=== PATIENT | male | born 1945 | race Caucasian/White ===

== ENCOUNTER 2024-06-20 13:01 | Inpatient (IN) | payer MEDICARE, SELFPAY ==
[2024-06-19] VITALS (28 sets, daily range): BP systolic 84–128; BP diastolic 57–89; PULSE 54–106; RESP 12–18; TEMP 35.6–36.9; O2SAT 93–100; BMI 29.2
--- NOTE | 2024-06-19 09:31 | W.PM.H&PU ---
History & Physical Update History & Physical Update H&P Reviewed and patient assessed: No changes noted
[2024-06-19] MEDS: LACTATED RINGERS 1000 ML 1,000 ML 100 ML IV ×2 (09:40→12:33)
[2024-06-19] MEDS: SODIUM CHLORIDE 0.9 % (FLUSH) 10 ML SYRINGE IVF (09:50)
[2024-06-19] MEDS: ACETAMINOPHEN 500 MG TABLET 1000 MG PO ×3 (09:55→20:35)
[2024-06-19] MEDS: OXYCODONE (CR) 10 MG TAB.ER.12H PO (09:55)
--- NOTE | 2024-06-19 10:29 | SUR.PREOP ---
TIME?OUT:?1031 PT/RN/MDA?VERIFICATION?OF?SURGICAL?SITE,?PROCEDURE,?AND?CONSENT OBTAINED?PRIOR?TO?INVASIVE?PROCEDURE.
[2024-06-19] MEDS: MIDAZOLAM HCL 1 MG/ML inj IVP (10:33)
[2024-06-19] MEDS: fentaNYL 100 MCG/2 ML inj IVP (10:33)
[2024-06-19] MEDS: TRANEXAMIC ACID 100 MG/ML INJ 1000 MG IV (10:57)
[2024-06-19] MEDS: CEFAZOLIN 2 GM in 0.9 % SODIUM CHLORIDE Mini-bag 100 ML IVPB ×3 (10:57→23:02)
--- NOTE | 2024-06-19 11:07 | CRLHL7_ITS ---
For Patients: As a result of the Cures Act, medical imaging exams and procedure reports are released immediately into your electronic medical record. You may view this report before your referring provider. If you have questions, please contact your health care provider. Indication: Postop Technique: Two views right knee Findings/Impression: Hardware from a right total knee arthroplasty is in satisfactory position. Bone alignment is normal. No sign of acute fracture. Postop changes are within normal limits. Dictated by Armond Stein MD @ 06/19/2024 1:10:43 PM (Electronically Signed)
--- NOTE | 2024-06-19 11:24 | P.NB_ITS ---
Nerve Block Nerve Block Time Seen by Provider: 10:35 Date Seen: 06/19/24 Type of block requested by surgeon for post-operative analgesia: adductor canal Side: right Time out performed: Yes Verification of patient name: Yes Verification of date of : Yes Site marking: site marked Name of person performing procedure: Rosas Continuous monitoring Was continuous monitoring of O2 sat, B/P, equipment monitor phototypesetting, recorded every 15 minutes?: Yes Procedure Checklist: sterile prep, needles and gloves Ultrasound guided. Images saved: Yes Medications given in 5ml increments after negative aspiration: Marcaine %: 0.25 mL: 15 Needle gauge: 20 Precedex (mcg): 25 Patient tolerated procedure well: Yes Block Charges Block Charge (with Pro Fee): Femoral Nerve Use of Ultrasound Machine for Block: Yes- US Guidance/pain block
--- NOTE | 2024-06-19 11:24 | P.NB_ITS ---
Nerve Block Nerve Block Time Seen by Provider: 10:35 Date Seen: 06/19/24 Type of block requested by surgeon for post-operative analgesia: geniculars Side: right Time out performed: Yes Verification of patient name: Yes Verification of date of : Yes Site marking: site marked Name of person performing procedure: Rosas Continuous monitoring Was continuous monitoring of O2 sat, B/P, cardiac tech, recorded every 15 minutes?: Yes Procedure Checklist: sterile prep, needles and gloves Ultrasound guided. Images saved: Yes Medications given in 5ml increments after negative aspiration: Marcaine %: 0.25 mL: 9 Needle gauge: 25 Patient tolerated procedure well: Yes Block Charges Block Charge (with Pro Fee): Genicular Nerve Block
--- NOTE | 2024-06-19 11:25 | P.ANES_ITS ---
Anesthesia Charges Start Date/Time Anesthesia Start Date: 06/19/24 Anesthesia Start Time: 10:38 Stop Date/Time Anesthesia Stop Date: 06/19/24 Anesthesia Stop Time: 12:44 Summary Extremes of Age - Over 70 or under 1: MDA Coding CPT Codes CPT Codes: ANESTH KNEE ARTHROPLASTY - 97497 ([id number]) P3 - PATIENT W/SEVERE SYS DISEASE, QK - ROLL UP GUIDER OPERATOR 2-4 CNCRNT ANES PROC, QX - SIZING MACHINE AND DRIER OPERATOR SVC W/ MD MED DIRECTION Additional Codes: Summary - Extremes of Age - Over 70 or under 1: MDA ([id number])
--- NOTE | 2024-06-19 11:25 | W.ANESCHARGE ---
Anesthesia Charges Start Date/Time Anesthesia Start Date: 06/19/24 Anesthesia Start Time: 10:38 Stop Date/Time Anesthesia Stop Date: 06/19/24 Anesthesia Stop Time: 12:44 Summary Extremes of Age - Over 70 or under 1: MDA Coding CPT Codes CPT Codes: ANESTH KNEE ARTHROPLASTY - 03512 ([id number]) P3 - PATIENT W/SEVERE SYS DISEASE, QK - RESIDENCY PROGRAM COORDINATOR 2-4 CNCRNT ANES PROC, QX - ARC WELDER APPRENTICE SVC W/ MD MED DIRECTION Additional Codes: Summary - Extremes of Age - Over 70 or under 1: MDA ([id number])
--- NOTE | 2024-06-19 12:18 | P.ORPRC_ITS ---
Procedure Note Date of procedure: 06/19/24 Procedure: PREOPERATIVE DIAGNOSIS: 1. Right knee osteoarthritis, primary, severe POSTOPERATIVE DIAGNOSIS: 1. Right knee osteoarthritis, primary, severe PROCEDURE: 1. Right total knee arthroplasty - subvastus SURGEON: Fernando Centeno MD. VOCATIONAL NURSE: DEBBIE Coburn - Of note, a skilled administrative assistant data entry was critical for this case to aid in patient positioning, tissue retraction, limb manipulation/positioning, and closure. ANESTHESIA: Spinal anesthetic IMPLANTS: DePuy J&J all cemented TKA - Attune PS femur size 7 Size 8 tibia 5 poly spacer 38mm patella TOURNIQUET: 90 min at 300 torr EBL: 50 ml COMPLICATIONS: None evident INDICATIONS: The patient is a pleasant 79-year-old male who has experienced severe right knee pain and difficulty bearing weight. Workup included x-rays which revealed severe osteoarthrosis in the knee. Given the deformity, the dysfunction, and the pain, as well as the failure of nonoperative management, recommendation was made for surgery. FINDINGS: Full-thickness chondral loss diffusely throughout the lateral compartment and to a lesser degree patellofemoral and medial compartments. Degenerative meniscus pathology lateral greater than medial. Small effusion upon entering the joint. DESCRIPTION OF PROCEDURE: Following a thorough discussion of risks, benefits, and alternatives consent was obtained and the right knee was marked. The patient was brought to the operating room and placed supine on the operating table. Induction of anesthesia was undertaken. 2 g IV Ancef and 1 g tranexamic acid was administered within 1 hr of incision preoperatively. Proper time-out was performed identifying proper patient, site, procedure. The operative extremity was prepped and draped in the appropriate sterile fashion using ChloraPrep after the patient was positioned supine with all bony prominences well padded. A longitudinal, anterior, midline skin incision was made starting approximately 3cm proximal to the superior pole of the patella and advanced distal to the tibial tubercle. A subvastus approach was utilized. A medial subperiosteal sleeve was created with knife, dale elevator and curved osteotome. The retropatellar fatpad was resected and the synovium in the suprapatellar pouch excised to visualize the anterior femoral cortex. Femoral preparation was performed via an intramedullary guide. Step drill allowed access into the femoral canal. The distal cutting guide was placed with 5? of valgus and 11 mm cut on the distal femur. Femur was sized using a anterior referencing guide in 3? of external rotation. This found have a best fit with the sizing noted above. The 4 in 1 cutting block was then placed, and the distal femur shaped accordingly. The box cut was then created and the trial implant inserted to confirm appropriate fit. We turned our attention to the proximal tibia. Extramedullary guide was utilized for cutting with the goal of being 90 degree cut from the mechanical axis of the tibia in the varus/valgus plane utilizing tibial crest as the primary alignment. Initially a 4 mm resection was performed from the medial tibial plateau. An additional 2mm did require resection to achieve appropriate balance. Ultimately, balancing was achieved in both flexion and extension in both varus and valgus. The knee was able to achieve full extension as well comfortably. The patella was initially measured and found have a thickness of 27 mm. It was resected back to approximately 16.5 mm. It was sized to be a best fit with as noted above. This was drilled, trial placed. All trials were placed and found to have an excellent stability and balance. At this stage, trial implants were removed, the knee was thoroughly irrigated with normal saline, and the cement was mixed. After irrigation, the knee was thoroughly dried, and cement placed, with the real tibial and femoral implants placed along with the patella. Trial poly spacer was placed and confirmed to have excellent range of motion and full extension, and the real poly spacer opened and inserted. All extra cement was removed, and a 3 min Betadine soak performed. Finally, a final irrigation round with normal saline was performed. Closure performed with 0 Vicryl and #0 Stratafix for the quad tendon/retinaculum. 2-0 Vicryl for the subcutaneous and 4-0 Stratafix for subcuticular closure. Dressings were applied and the patient was awoken from anesthesia after the tourniquet deflated and transferred the PACU in stable condition. A skilled administrative assistant data entry was critical for this case to aid in patient positioning, tissue retraction, bone exposure, limb manipulation/positioning, patient safety, and closure. PLAN: 1. Weight bear as tolerated operative extremity. 2. 23 hr perioperative antibiotics. 3. Ice. 4. PT/OT consults for ambulation assistance/mobility education. 5. Social work consult for discharge planning. 6. [facility] and he will return to his [facility] use postoperative
--- NOTE | 2024-06-19 12:44 | P.ANES_ITS ---
Anesthesia Charges Start Date/Time Anesthesia Start Date: 06/19/24 Anesthesia Start Time: 10:38 Stop Date/Time Anesthesia Stop Date: 06/19/24 Anesthesia Stop Time: 12:44 Summary Extremes of Age - Over 70 or under 1: DIETETIC TECH Coding CPT Codes CPT Codes: ANESTH KNEE ARTHROPLASTY - 50995 ([id number]) P2 - PATIENT W/MILD SYST DISEASE, QK - COPPERSMITH HELPER 2-4 CNCRNT ANES PROC, QX - DIETETIC TECH SVC W/ MD MED DIRECTION Additional Codes: Summary - Extremes of Age - Over 70 or under 1: DIETETIC TECH ([id number])
--- NOTE | 2024-06-19 12:44 | W.ANESCHARGE ---
Anesthesia Charges Start Date/Time Anesthesia Start Date: 06/19/24 Anesthesia Start Time: 10:38 Stop Date/Time Anesthesia Stop Date: 06/19/24 Anesthesia Stop Time: 12:44 Summary Extremes of Age - Over 70 or under 1: LICENSED LAND SURVEYOR Coding CPT Codes CPT Codes: ANESTH KNEE ARTHROPLASTY - 92511 ([id number]) P2 - PATIENT W/MILD SYST DISEASE, QK - MATRIX INSPECTOR 2-4 CNCRNT ANES PROC, QX - LICENSED LAND SURVEYOR SVC W/ MD MED DIRECTION Additional Codes: Summary - Extremes of Age - Over 70 or under 1: LICENSED LAND SURVEYOR ([id number])
[2024-06-19] MEDS: fentaNYL 100 MCG/2 ML inj 50 MCG IVP ×3 (12:56→13:25)
[2024-06-19] MEDS: HYDROmorphone 0.5 mg/0.5 ml inj IVP ×5 (13:10→23:54)
[2024-06-19] MEDS: OXYCODONE 5 MG TABLET PO ×3 (14:12→20:35)
[2024-06-19] MEDS: hydrOXYzine pamoate 25 MG CAPSULE PO (14:13)
[2024-06-19] MEDS: LACTATED RINGERS 1000 ML 1,000 ML 75 ML IV (14:22)
--- NOTE | 2024-06-19 14:48 | REH.PT ---
PT receive orders to eval and treat. PT attempted to see pt in PM for eval, however pt is too groggy from pain medications to participate in PT. Will reattempt as plan tomorrow morning.
--- NOTE | 2024-06-19 16:51 | P.IMCN_ITS ---
Date of Consult Consult date: 06/19/24 Primary Care Provider: Zaid Gill MD Consult Narrative Narrative: Zaid Maddox is a 79 year old male w/ PMHx of atrial fibrillation, stricture and stenosis of the esophagus, overactive bladder and Right knee osteoarthritis who presents to our hospital for an elective procedure. Currently, patient is s/p Right total knee arthroplasty, performed today 19 of June. Patient is on apixaban 5 mg b.i.d. and on verapamil SR 180 mg once daily for his AFib. Pt is c/o severe pain post op, though he took good doses of opioid meds. Anesthesiologist was contacted to repeat knee block. Review of Systems Status of ROS: Reports: 6 or more systems reviewed and unremarkable except as noted in History and below [facility] Medical History (Updated 06/19/24 @ 18:45 by Rizwana Anderson MD) Left hydrocele ?N43.3 - Hydrocele, unspecified (ICD-10) Risk for falls ?Z91.81 - History of falling (ICD-10) BPH without urinary obstruction ?N40.0 - Benign prostatic hyperplasia without lower urinary tract symptoms (ICD-10) Overactive bladder ?N32.81 - Overactive bladder (ICD-10) Insomnia ?G47.00 - Insomnia, unspecified (ICD-10) Arthritis of carpometacarpal (CMC) joint of left thumb ?M18.12 - Unilateral primary osteoarthritis of first carpometacarpal joint, left hand (ICD-10) Stricture and stenosis of esophagus ?K22.2 - Esophageal obstruction (ICD-10) Mixed conductive and sensorineural hearing loss of right ear with restricted hearing of left ear ?H90.A31 - Mixed conductive and sensorineural hearing loss, unilateral, right ear with restricted hearing on the contralateral side (ICD-10) Cholesteatoma ?H71.90 - Unspecified cholesteatoma, unspecified ear (ICD-10) Onychomycosis ?B35.1 - Tinea unguium (ICD-10) Afib ?I48.91 - Unspecified atrial fibrillation (ICD-10) Surgical History (Updated 06/19/24 @ 16:56 by Rizwana Anderson MD) History of arthroplasty of right knee (06/19/24) ?Z96.651 - Presence of right artificial knee joint (ICD-10) History of bilateral cataract extraction (07/2020) ?Z98.41 - Cataract extraction status, right eye (ICD-10) ?Z98.42 - Cataract extraction status, left eye (ICD-10) History of esophagogastroduodenoscopy (EGD) (10/2019) ?Z98.890 - Other specified postprocedural states (ICD-10) H/O umbilical hernia repair (08/11/01) ?Z98.890 - Other specified postprocedural states (ICD-10) ?Z87.19 - Personal history of other diseases of the digestive system (ICD-10) Cholesteatoma of right ear (1997) ?H71.91 - Unspecified cholesteatoma, right ear (ICD-10) History of tonsillectomy (1951) ?Z90.89 - Acquired absence of other organs (ICD-10) History of transurethral resection of prostate (11/2013) ?Z98.890 - Other specified postprocedural states (ICD-10) ?Z90.79 - Acquired absence of other genital organ(s) (ICD-10) Social History (Updated 04/21/24 @ 10:56 by Tessy Celaya ~ [facility], [facility]) What is your current living situation?: I presently have a place to live In the past 12 months, utilities in danger of being shut off: no In past 12 months, lack of transportation kept you from medical appts, meetings, work, or getting things needed for daily living: no In the past 12 mos, have been you worried that your food would run out before you had money to buy more?: never true In the past 12 mos, the food you bought just didn't last and you didn't have money to buy more?: never true Smoking Status: Never smoker Do you use any of these nicotine containing products: None Second hand tobacco smoke exposure: No How often do you have a drink containing alcohol: never AUDIT-C Alcohol total score: 0 Non-prescribed substance use: denies use Caffeine: Yes How often does anyone, including family, friends and others, physically hurt you : never How often does anyone, including family, friends and others, insult or talk down to you: never How often does anyone, including family, friends and others, threaten you with harm: never How often does anyone, including family, friends and others, scream or curse at you: never service: No Meds Home Medications and Allergies Home Medications ?Medication ?Instructions ?Recorded ?Confirmed ?Type apixaban 5 mg tablet (Eliquis) 5 mg PO BID 12/11/22 06/19/24 History verapamil 180 mg tablet,extended 180 mg PO DAILY 12/11/22 06/19/24 History release cholecalciferol (vitamin D3) 25 1,000 unit PO BID 06/15/24 06/15/24 History mcg (1,000 unit) capsule Allergies Allergy/AdvReac Type Severity Reaction Status Date / Time No Known Drug Allergies Allergy Verified 06/19/24 09:23 Exam Narrative: Exam Narrative: Physical exam GENERAL: Anxious HEAD AND NECK: Atraumatic, normocephalic CARDIOVASCULAR: Normal S1, S2. No murmurs. RESPIRATORY: Clear to auscultation B/L. Good air entry B/L. No wheezes or rhonchi. NEUROLOGY: Alert, awake, oriented X 3. Normal speech. Const: Vital Signs, click to edit/add: Vital Signs - 24 hr 06/19/24 09:10 06/19/24 10:35 06/19/24 12:40 Temperature 98.4 F Pulse Rate 97 75 64 Respiratory Rate 16 14 13 Blood Pressure 106/65 110/64 94/57 L Pulse Oximetry 96 99 97 Oxygen Delivery Me thod Room Air Nasal Cannula Room Air Oxygen Flow Rate 2 06/19/24 12:45 06/19/24 12:50 06/19/24 12:55 Temperature Pulse Rate 65 56 L 60 Respiratory Rate 12 14 16 Blood Pressure 84/58 L 108/89 89/64 L Pulse Oximetry 98 94 96 Oxygen Delivery Me thod Oxygen Flow Rate 06/19/24 13:00 06/19/24 13:05 06/19/24 13:10 Temperature Pulse Rate 57 L 60 59 L Respiratory Rate 14 16 14 Blood Pressure 97/60 98/60 99/61 Pulse Oximetry 98 95 94 Oxygen Delivery Me thod Oxygen Flow Rate 06/19/24 13:15 06/19/24 13:20 06/19/24 13:25 Temperature Pulse Rate 55 L 58 L 57 L Respiratory Rate 13 14 12 Blood Pressure 98/61 95/67 107/63 Pulse Oximetry 96 95 94 Oxygen Delivery Me thod Oxygen Flow Rate 06/19/24 13:30 06/19/24 13:35 06/19/24 13:40 Temperature 97.0 F L Pulse Rate 59 L 54 L 55 L Respiratory Rate 12 14 13 Blood Pressure 107/72 100/69 104/60 Pulse Oximetry 93 95 95 Oxygen Delivery Me thod Oxygen Flow Rate 06/19/24 14:12 06/19/24 14:26 06/19/24 14:26 Temperature 96.9 F L 96.9 F L 96.2 F L Pulse Rate 61 59 L Respiratory Rate 14 12 Blood Pressure 100/68 105/67 Pulse Oximetry 99 96 Oxygen Delivery Me thod Room Air Room Air Oxygen Flow Rate 2 06/19/24 14:34 06/19/24 14:56 06/19/24 15:00 Temperature 96.0 F L 96.2 F L Pulse Rate 59 L 65 Respiratory Rate 12 12 Blood Pressure 115/72 99/72 Pulse Oximetry 97 97 97 Oxygen Delivery Me thod Room Air Room Air Oxygen Flow Rate 2 06/19/24 15:00 06/19/24 15:11 06/19/24 15:41 Temperature 96.0 F L 96.0 F L Pulse Rate 56 L 77 Respiratory Rate 12 12 12 Blood Pressure 108/70 93/61 Pulse Oximetry 97 97 100 Oxygen Delivery Me thod Room Air Room Air Room Air Oxygen Flow Rate 2 Assessment and Plan Assessment and plan (1) Status post right knee replacement: Problem comment: -s/p Right total knee arthroplasty, performed today 19 of June. -Start early ambulation with physical therapy. -DVT prophylaxis with at [facility] and he will return to his [facility] use postoperative. -Monitor for urine output postoperatively, bladder scan if needed. -Encourage incentive spirometry. -PT/OT Status: Acute (2) Post-operative pain: Problem comment: Had severe pain post op. Anesthesiologist to repeat knee block. Status: Acute (3) Afib: Problem comment: Patient is on apixaban 5 mg b.i.d. and on verapamil SR 180 mg once daily for his AFib. Status: Acute (4) Osteoarthritis of right knee: Problem comment: Severe Status: Acute (5) Overactive bladder: Status: Acute (6) Stricture and stenosis of esophagus: Status: Acute Total Time Spent Total Time Spent: Time spent: Today I spent 75 minutes seeing the patient, discussing the patient with ER staff, reviewing Expanse and EPIC notes/diagnostics, discussing the care plan with our care time that includes social work, PT/OT, pharmacy, RT, detention and documenting my impressions and plan in the medical record.
[2024-06-19] MEDS: ONDANSETRON 2 MG/ML inj 4 MG IVP (17:52)
--- NOTE | 2024-06-19 18:37 | PC.NURSE ---
Patient to the floor at 1345 S/P RTKA. Patients pain not managed with scheduled and prn medications, PERSONAL SERVICE WORKERS currently at bedside providing a block for increased pain control. VSS, CMS intact, patient tolerating regular diet and ambulates with SBA.
--- NOTE | 2024-06-19 20:03 | CRLHL7_ITS ---
For Patients: As a result of the Century Cures Act, medical imaging exams and procedure reports are released immediately into your electronic medical record. You may view this report before your referring provider. If you have questions, please contact your health care provider. INDICATION: Pain and swelling. COMPARISON: None. TECHNIQUE: A compression venous ultrasound exam was performed of the right lower extremity using pedroza-scale imaging, color Doppler, and spectral Doppler analysis. FINDINGS: Sonographic imaging of the right lower extremity demonstrates normal compressibility and color Doppler venous blood flow within the common femoral, femoral, deep femoral, and proximal greater saphenous veins. At a lower level the popliteal, peroneal, and posterior tibial veins also show normal compressibility and color Doppler venous blood flow. Limited imaging of the contralateral groin demonstrates a normal spectral waveform and color Doppler venous blood flow within the left common femoral vein. IMPRESSION: Negative for acute DVT in the right lower extremity. Dictated by Chaya Real MD @ 06/19/2024 10:28:50 PM (Electronically Signed)
[2024-06-19] MEDS: SENNOSIDES 1 TAB TABLET 2 TAB PO (20:35)
--- NOTE | 2024-06-19 22:13 | W.PM.NB ---
Nerve Block Nerve Block Time Seen by Provider: 19:30 Date Seen: 06/19/24 Type of block requested by surgeon for post-operative analgesia: adductor canal Side: right Time out performed: Yes Verification of patient name: Yes Verification of date of : Yes Site marking: site marked Name of person performing procedure: Gianni Pillai Continuous monitoring Was continuous monitoring of O2 sat, B/P, clinical research monitor, recorded every 15 minutes?: Yes Procedure Checklist: sterile prep, needles and gloves Ultrasound guided. Images saved: Yes Medications given in 5ml increments after negative aspiration: Marcaine %: 0.25 mL: 10 Needle gauge: 21 and Lidocaine %: 2.0 mL: 10 Needle gauge: 21 Patient tolerated procedure well: Yes Additional comments: Re block post op. Injected in 5ml increments after negative aspiration Block Charges Block Charge (with Pro Fee): Femoral Nerve Use of Ultrasound Machine for Block: Yes- US Guidance/pain block
--- NOTE | 2024-06-19 22:15 | P.NB_ITS ---
Nerve Block Nerve Block Time Seen by Provider: 19:30 Date Seen: 06/19/24 Type of block requested by surgeon for post-operative analgesia: geniculars Side: right Time out performed: Yes Verification of patient name: Yes Verification of date of : Yes Site marking: site marked Name of person performing procedure: Gianni Pillai Continuous monitoring Was continuous monitoring of O2 sat, B/P, teletypesetter monitor, recorded every 15 minutes?: Yes Procedure Checklist: sterile prep, needles and gloves Ultrasound guided. Images saved: No Medications given in 5ml increments after negative aspiration: Marcaine %: 0.25 mL: 7 Needle gauge: 21 and Lidocaine %: 2.0 mL: 5 Needle gauge: 25 Patient tolerated procedure well: Yes Additional comments: Re-block post op. Injected in 4ml increments after negative aspiration Block Charges Block Charge (with Pro Fee): Genicular Nerve Block Use of Ultrasound Machine for Block: No
--- NOTE | 2024-06-19 22:19 | W.PM.NB ---
Nerve Block Nerve Block Time Seen by Provider: 20:00 Date Seen: 06/19/24 Type of block requested by surgeon for post-operative analgesia: popliteal Side: right Time out performed: Yes Verification of patient name: Yes Verification of date of : Yes Site marking: site marked Name of person performing procedure: Gianni Pillai Continuous monitoring Was continuous monitoring of O2 sat, B/P, sewage treatment plant operator, recorded every 15 minutes?: Yes Procedure Checklist: sterile prep, needles and gloves Ultrasound guided. Images saved: Yes Medications given in 5ml increments after negative aspiration: Marcaine %: 0.25 mL: 10 Needle gauge: 21 and Lidocaine %: 2.0 mL: 10 Needle gauge: 21 Patient tolerated procedure well: Yes Additional comments: Ipack block Block Charges Block Charge (with Pro Fee): Sciatic Nerve Use of Ultrasound Machine for Block: Yes- US Guidance/pain block
--- NOTE | 2024-06-19 22:44 | PC.NURSE ---
TOOL PLANER SET UP OPERATOR updated Ortho PA after block completed. Ortho PA ordered US to rule out DVT and to assess dense area noted on his ultrasound behind knee. Area was noted to be muscle knot per TOOL PLANER SET UP OPERATOR.
[2024-06-19] MEDS: LORazepam 0.5 MG TABLET PO (23:02)
[2024-06-20] VITALS (8 sets, daily range): BP systolic 93–125; BP diastolic 58–97; PULSE 92–120; RESP 16–20; TEMP 36.3–36.8; O2SAT 94–99
[2024-06-20] MEDS: OXYCODONE 5 MG TABLET PO ×2 (00:07→02:53)
[2024-06-20] MEDS: ONDANSETRON 2 MG/ML inj 4 MG IVP (00:08)
[2024-06-20] MEDS: ACETAMINOPHEN 500 MG TABLET 1000 MG PO ×3 (02:53→21:03)
[2024-06-20 06:36] LABS: Basophils Percent Auto 0.1 % (0.0-3.0); Hematocrit 41.9 % (37.0-53.0); Hemoglobin* 13.8 gm/dL (13.5-17.5); Immature Granulocytes Pct Auto 0.1 %; Mean Corpuscular HGB Conc 33 gm/dL (32-36); Mean Corpuscular Hemoglobin 29 pg (26-34); Mean Corpuscular Volume 89 fL (80-100); Monocytes Percent Auto 9.5 % (0.0-11.0); Neutrophils Percent Auto 83.3 % (42.0-72.0); Platelet Count* 183 K/uL (140-440); RDW Coefficient of Variation % 14.6 % (11.5-15.5); Red Blood Count 4.69 m/uL (4.30-5.90); White Blood Count* 11.26 K/uL (4.50-11.00)
[2024-06-20 06:37] LABS: Slide Review Reflex No
[2024-06-20 06:49] LABS: Sodium* 133 mmol/L (135-149)
[2024-06-20 06:50] LABS: Potassium* 4.2 mmol/L (3.6-5.1)
[2024-06-20 06:52] LABS: Blood Urea Nitrogen* 17 mg/dL (7-30); Creatinine* 0.8 mg/dL (0.5-1.5); Est. Creatinine Clearance* 60.88; Estimated Glomerular Filt Rate 91 ml/min
--- NOTE | 2024-06-20 07:11 | PC.NURSE ---
[id number]: Pt alert, oriented and vitally stable. Pain rated 10/10 around 2300, prn oxy and dilaudid given, pt stated improvement to 6/10. Prn oxy given again, pt stated further improvement. Pt used bedside urinal, strenuous when urinating. After urinating, pt stated nausea, prn zofran given. Aqua K to bottom of right knee, ice pack to op site. Dressing C/D/I. Iv infiltrated, removed tip intact. Refused replacement. Pt in bed, appears to be resting call light within reach.?
[2024-06-20] MEDS: SENNOSIDES 1 TAB TABLET 2 TAB PO ×2 (08:33→21:02)
[2024-06-20] MEDS: APIXABAN 5 MG TABLET PO ×2 (08:34→21:02)
[2024-06-20] MEDS: HYDROmorphone 2 MG TABLET PO ×4 (09:11→22:19)
--- NOTE | 2024-06-20 12:30 | PC.SOCIAL ---
Discharge planning: field irrigation worker met with pt, pt's and pt's son, Clarence. Pt stated that he has has uncontrolled pain since he woke up from surgery and has concerns about discharging home with his pain uncontrolled. field irrigation worker relayed this message to the provider on duty. PT will be meeting with the pt again at 12:30pm to reassess his movement. Social work to follow-up as needed.
--- NOTE | 2024-06-20 17:54 | P.ORPN_ITS ---
Subjective Subjective Date Seen: 06/20/24 Principal diagnosis: Status postop day 1 right total knee arthroplasty Interval history: Patient reports not dealing well with the pain. Pain is always a 10/10, especially when weight-bearing. Points to pain along the medial aspect of his knee, no posterior pain. Acute events overnight include difficult pain control, requiring repeat popliteal block. There is also possible concern for a DVT, which was ruled out with ultrasound. Pain manage okay with scheduled and PRN medications, ice. DVT prophylaxis: On apixaban 5 mg twice daily chronically, SCDs, walking. Denies fevers, chills, aches, N/V, CP, SOB/POTTER, or lightheadedness. Reported vomiting yesterday, which has slightly improved. Still some nausea. Ortho Exam Narrative Exam Narrative: -Patient appears comfortable in a recliner; no apparent acute distress. Seems a little groggy from pain medication. -Alert and oriented times 3 -Operative knee mild-moderately swollen; soft tissues supple; no ecchymosis; no erythematous streaking Warmth appropriate. Pain along the medial aspect, vastus medialis region and medial retinaculum. Posterior knee discomfort. -Surgical dressing clean, dry, intact; no drainage -Bilateral calfs soft; no significant swelling, edema, tenderness, erythema, discoloration, warmth, or palpable cords -2+ DP/PT pulses, intact dermatomes and myotomes distally (5/5 strength) Const Vital Signs, click to edit/add: Vital Signs - 24 hr 06/19/24 17:58 06/19/24 20:05 06/19/24 22:33 Temperature 96.5 F L 97.3 F L 97.7 F Pulse Rate 65 Pulse Rate [Right Pulse Oximeter] 91 106 H Respiratory Rate 14 16 14 Blood Pressure 113/73 Blood Pressure [Right Arm] 128/78 116/68 Pulse Oximetry 99 97 95 Oxygen Delivery Method Room Air Room Air Room Air Oxygen Flow Rate 06/19/24 23:00 06/19/24 23:00 06/19/24 23:00 Temperature 97.8 F Pulse Rate Pulse Rate [Right Pulse Oximeter] 93 Respiratory Rate 16 18 Blood Pressure Blood Pressure [Right Arm] 101/77 Pulse Oximetry 100 100 100 Oxygen Delivery Method Room Air Nasal Cannula Oxygen Flow Rate 1 06/19/24 23:00 06/20/24 03:00 06/20/24 07:00 Temperature 98.2 F Pulse Rate Pulse Rate [Right Pulse Oximeter] 93 99 Respiratory Rate 18 16 Blood Pressure Blood Pressure [Right Arm] 119/97 H Pulse Oximetry 98 98 Oxygen Delivery Method Room Air Oxygen Flow Rate 06/20/24 07:00 06/20/24 08:00 06/20/24 11:00 Temperature 97.7 F Pulse Rate Pulse Rate [Right Pulse Oximeter] 103 H 120 H Respiratory Rate 16 16 Blood Pressure Blood Pressure [Right Arm] 125/73 120/63 Pulse Oximetry 98 98 98 Oxygen Delivery Method Room Air Room Air Room Air Oxygen Flow Rate 06/20/24 15:00 06/20/24 15:00 06/20/24 15:00 Temperature Pulse Rate Pulse Rate [Right Pulse Oximeter] 119 H Respiratory Rate 16 Blood Pressure Blood Pressure [Right Arm] Pulse Oximetry 96 99 Oxygen Delivery Method Room Air Oxygen Flow Rate 06/20/24 15:00 Temperature Pulse Rate Pulse Rate [Right Pulse Oximeter] 119 H Respiratory Rate 16 Blood Pressure Blood Pressure [Right Arm] 107/58 L Pulse Oximetry 99 Oxygen Delivery Method Room Air Oxygen Flow Rate Assessment and Plan Assessment and plan (1) Status post right knee replacement: Problem details: -s/p Right total knee arthroplasty, performed today 19 of June. -Start early ambulation with physical therapy. -DVT prophylaxis with at [facility] and he will return to his Eliquis use postoperative. -Monitor for urine output postoperatively, bladder scan if needed. -Encourage incentive spirometry. -PT/OT Status: Acute (2) Post-operative pain: Problem details: Had severe pain post op. Anesthesiologist to repeat knee block. Status: Acute (3) Afib: Problem details: Patient is on apixaban 5 mg b.i.d. and on verapamil SR 180 mg once daily for his AFib. Status: Acute (4) Osteoarthritis of right knee: Problem details: Severe Status: Acute (5) Overactive bladder: Status: Acute (6) Stricture and stenosis of esophagus: Status: Acute Plan - Complete 23 hour perioperative antibiotics. - PT/OT consult for education and assistance. - Social work consult for discharge planning - patient may require SNF at discharge. He is not doing well now from pain management standpoint, and is not progressing very well because of this pain. - Prescribed analgesics as needed - will switch to oral Dilaudid to see if this helps compared to the oxycodone. Continue acetaminophen. No Vistaril added - DVT prophylaxis: 5 mg apixaban twice daily, walking, and SCDs - Anticipation is for discharge to home or SNF once patient is doing well with therapies, and has better pain control.
--- NOTE | 2024-06-20 18:34 | PC.NURSE ---
Pt pleasant to care for. VSS. Afebrile. Pain is hard to control today, requiring PRN pain medications and ice frequently. Pt did move well with therapy and continues to ambulate in room to the restroom. This evening the pt states his pain is more tolerable at a 5/10. Appetite has improved this evening. Pt resting well at this time.
--- NOTE | 2024-06-20 19:57 | CRLHL7_ITS ---
For Patients: As a result of the Cures Act, medical imaging exams and procedure reports are released immediately into your electronic medical record. You may view this report before your referring provider. If you have questions, please contact your health care provider. Indication: Possible fall, right knee pain.. Technique: Right knee, 2 views. Comparison: June 19, 2024. Findings: Evolving postsurgical changes from right knee arthroplasty. Orthopedic hardware appears to be in appropriate alignment without significant interval change. No hardware fracture identified. No acute osseous fracture identified. Persistent gas in the soft tissues and joint space which has decreased compared to the prior exam. Soft tissue swelling, mildly increased compared to prior. Dictated by Bria Lieberman MD @ 06/20/2024 9:04:36 PM (Electronically Signed)
[2024-06-20] MEDS: SODIUM CHLORIDE 0.9 % (FLUSH) 10 ML SYRINGE IVF (21:03)
[2024-06-20] MEDS: 0.9 % SODIUM CHLORIDE 500 ML 500 ML IV (21:03)
[2024-06-20] MEDS: METOPROLOL TARTRATE 25 MG TABLET 12.5 MG PO (22:17)
[2024-06-21] VITALS (9 sets, daily range): BP systolic 100–129; BP diastolic 65–89; PULSE 86–104; RESP 14–18; TEMP 36.3–36.8; O2SAT 94–97
[2024-06-21] MEDS: HYDROmorphone 2 MG TABLET PO ×4 (02:34→22:23)
[2024-06-21] MEDS: ACETAMINOPHEN 500 MG TABLET 1000 MG PO ×4 (02:34→21:07)
--- NOTE | 2024-06-21 03:15 | PC.NURSE ---
RN was by break room door and heard patient from 257 yelling out. RN immediately headed to 257 to assist patient. When RN entered room, patient was sitting in the recliner rubbing his R. knee saying he fell. Patient's was also at bedside. Patient reports he tried to self-transfer to the bathroom stating, I know I am supposed to call you girls for help but didn't want to bother you. RN asked clarifying questions. RN asked patient to explain what body part had in fact touched the floor. Patient said, I think I was flat on my back. Patient's said No, I think you were on your butt with your legs out in front of you. RN inquired how the patient got back into the chair. Neither the patient nor could answer. It is unclear whether the patient fell or not. Later the patient and his decided that the patient stood up with the walker and then fell back into the chair. verbalized she could not have lifted him off the floor. The time that the patient yelled out until RN entered patients' room was a few seconds, therefore there was minimal time for the patient to get from the floor to the chair. Contributing Factors: Process, Human, Equipment, Information Management, Leadership, Environmental, Human Resource, or Patient Factors Patient's BP was found to be hypotensive at 93/66 and HR in afib ranging from 101-120. There was no chair alarm in place. Call light was on bedside table next to patient. Slip-proof socks on. Was there an injury (or potential injury)? Please describeMD and Ortho PA contacted. XR was ordered and completed. See imaging results. Fluid bolus administered and BP rechecked 114/65 How was the treatment plan affected? (e.g. increase length of stay, increased monitoring or testing)Patient educated information security analyst light use and the risks of self-transferring. Patient moved closer to nurses station to room 243.
--- NOTE | 2024-06-21 07:04 | PC.NURSE ---
[id number]: Pt alert, oriented, though does have periods of confusion. VSS. Tele reads afib with nvr. Pain rated 8/10 throughout shift, prn dilaudid given. Ice pack to op site and bottom of knee. Non weight bearing. Pt in chair, appears to be resting, call light within reach and alarms on.?
--- NOTE | 2024-06-21 10:08 | PM.ORPN ---
Subjective Subjective Date Seen: 06/21/24 Principal diagnosis: Status postop day 2 right total knee arthroplasty Interval history: Patient reports that he is still struggling with pain, medial aspect knee. Patient and staff report a patient fall yesterday evening, approximately 20:00 hours. He reported to staff that he fell on his back. Today, he reports to me that he was standing up with the walker to use the bathroom, and he may have fallen back into the recliner, maybe bumping his right knee against the recliner arm, which is hard. When the hospitalist came into the room, he shared that he fell to his knees, but was able to get up quickly and back into the chair. Per nursing staff, they heard the patient fall/yell for help, were close to his room, and had responded to him within seconds. States that he did not hit his head. Pain managed with scheduled and PRN medications, ice. He is now taking oral Dilaudid for pain. States that he feels the pain medication is just sugar pills, and is not touching the pain. Denies lateral knee pain, posterior knee pain, or lower leg pain. DVT prophylaxis: apixiban, 5mg twice daily, SCDs, walking. He is motivated to work with PT, but reluctant and fearful of the pain, thus PT is not progressing great for him. Denies fevers, chills, aches, N/V, CP, SOB/POTTER, or lightheadedness. Ortho Exam Narrative Exam Narrative: -Patient appears comfortable; no apparent acute distress. Observing from the hallway, patient is resting comfortably in the recliner, feet up, reading a book in no acute distress. When entering the room, he is still reading his book, again no obvious distress. He does not appear to be experiencing any pain. After talking with him for a few minutes, before any exam performed on his knee, he starts complaining of intense medial knee pain even at rest. At times, patient is chewing on his knuckles due to pain, and grimacing. -Alert and oriented times 3 -ice pack present medially and posterior knee, placing the knee in approximately 20? flexion -no obvious ecchymosis, erythema; in particular no ecchymosis on the lateral knee. Moderate swelling through the knee and distal thigh. Warmth appropriate gone; no erythematous streaking. -Surgical dressing clean, dry, intact; no drainage -tender medial knee along the medial retinaculum and medial joint line. Very mild pain to palpation along the lateral femoral condyle, lateral tibial plateau all LCL course. -solid endpoint with varus stress both at 0 and 30? along the LCL. No pain with this manipulation -Bilateral calfs soft; no significant swelling, edema, tenderness, erythema, discoloration, warmth, or palpable cords -2+ DP/PT pulses, intact dermatomes and myotomes distally (5/5 strength) Const Vital Signs, click to edit/add: Vital Signs - 24 hr 06/20/24 11:00 06/20/24 15:00 06/20/24 15:00 Temperature 97.7 F Pulse Rate Pulse Rate [Right Pulse Oximeter] 120 H 119 H Respiratory Rate 16 16 Blood Pressure [Left Arm] Blood Pressure [Right Arm] 120/63 Pulse Oximetry 98 96 Oxygen Delivery Method Room Air 06/20/24 15:00 06/20/24 15:00 06/20/24 20:10 Temperature 97.4 F L Pulse Rate Pulse Rate [Right Pulse Oximeter] 119 H 101 H Respiratory Rate 16 20 Blood Pressure [Left Arm] Blood Pressure [Right Arm] 107/58 L 93/66 Pulse Oximetry 99 99 94 Oxygen Delivery Method Room Air Room Air Room Air 06/20/24 22:06 06/20/24 23:00 06/20/24 23:00 Temperature 98.3 F Pulse Rate 92 Pulse Rate [Right Pulse Oximeter] 94 Respiratory Rate 16 Blood Pressure [Left Arm] Blood Pressure [Right Arm] 114/65 110/72 Pulse Oximetry 95 Oxygen Delivery Method Room Air 06/20/24 23:00 06/20/24 23:00 06/20/24 23:00 Temperature Pulse Rate Pulse Rate [Right Pulse Oximeter] 94 Respiratory Rate 16 Blood Pressure [Left Arm] Blood Pressure [Right Arm] Pulse Oximetry 95 95 Oxygen Delivery Method Room Air 06/21/24 02:38 06/21/24 07:33 Temperature 97.6 F 97.7 F Pulse Rate Pulse Rate [Right Pulse Oximeter] 95 100 Respiratory Rate 16 18 Blood Pressure [Left Arm] 111/69 Blood Pressure [Right Arm] 100/66 Pulse Oximetry 97 94 Oxygen Delivery Method Room Air Room Air Assessment and Plan Assessment and plan (1) Status post right knee replacement: Problem details: -s/p Right total knee arthroplasty, performed today 19 of June. -Start early ambulation with physical therapy. -DVT prophylaxis with at [facility]s and he will return to his Eliquis use postoperative. -Monitor for urine output postoperatively, bladder scan if needed. -Encourage incentive spirometry. -PT/OT Status: Acute (2) Post-operative pain: Status: Acute (3) Afib: Problem details: Patient is on apixaban 5 mg b.i.d. and on verapamil SR 180 mg once daily for his AFib. Status: Acute (4) Osteoarthritis of right knee: Problem details: Severe Status: Acute (5) Overactive bladder: Status: Acute (6) Stricture and stenosis of esophagus: Status: Acute (7) Fall during current hospitalization: Problem details: Date of fall, 06/20/2024 around 20:00 hours. Still unclear how the fall occurred, and with the fall entailed. Patient is really unclear is in about the fall, and his story tends to change. Status: Acute Plan - Complete 23 hour perioperative antibiotics. - PT/OT consult for education and assistance. - Social work consult for discharge planning - patient is likely going to need SNF placement. Please have social work speak with him about this. He seems understand that this would be a good next step, and would help facilitate discharge - Prescribed analgesics as needed - oral Dilaudid appears to be provide some pain relief. - DVT prophylaxis: Apixaban 5 mg twice daily, walking, and SCDs - His knee overall appears to be stable, in particular with varus stress. Radiographs are also reassuring. There appears to be no overt fracture that might compromise the prosthetic knee. There is a questionable fractured off osteophyte or avulsion injury along the proximal lateral aspect of the tibial plateau from a which may be a residual osteophyte from the posterior lateral knee as rotation of this AP images not comparable to the postoperative image. WBAT, but with assistance. Bed/chair alarms on. - Anticipation is for discharge to SNF, likely [facility] for short rehab stay. - In my opinion, patient's pain is not severe- he appears to have a hard time quantifying his pain. Unlikely that his pain is >10/10. I asked that he try and push himself in PT - he became tearful during this conversation. We will also add a lidocaine patch to the medial retinaculum knee to see if this helps his pain. - of note, when a left his room, patient returned to reading his book appearing comfortable without obvious pain.
[2024-06-21] MEDS: APIXABAN 5 MG TABLET PO ×2 (10:09→20:19)
[2024-06-21] MEDS: SENNOSIDES 1 TAB TABLET 2 TAB PO ×2 (10:09→20:20)
[2024-06-21] MEDS: METOPROLOL TARTRATE 25 MG TABLET 12.5 MG PO ×2 (10:13→20:20)
[2024-06-21] MEDS: LIDOCAINE 5% PATCH 1 PATCH TRANSDERMA (10:13)
--- NOTE | 2024-06-21 13:32 | P.IMPN_ITS ---
Assessment and Plan Assessment and plan (1) Status post right knee replacement: Problem comment: -s/p Right total knee arthroplasty - POD 2 -continue routine cares and work with pain patient is experiencing - no concern at this time that this represents any pathological underlying cause. Status: Acute (2) Post-operative pain: Problem comment: oral dilaudid in place of the oxycodone scheduled tylenol prn flexeril Status: Acute (3) Afib: Problem comment: Patient is on apixaban 5 mg b.i.d. and on verapamil SR 180 mg once daily for his AFib. Status: Acute (4) Osteoarthritis of right knee: Problem comment: Severe Status: Acute (5) Overactive bladder: Status: Acute (6) Stricture and stenosis of esophagus: Status: Acute (7) Fall during current hospitalization: Problem comment: Date of fall, 06/20/2024 around 20:00 hours. Still unclear how the fall occurred, and with the fall entailed. Patient is really unclear is in about the fall, and his story tends to change. Status: Acute Subjective Date Seen: 06/21/24 Interval history: Daily Progress Note - Hospital Medicine Day #: CC: 24 HOUR UPDATE: Tyrese is in pain out of proportion to exam and expectations. There was a fall or stumble last night. Xrays overread by ortho are reassuring. I rounded with ortho this morning. We are recommending short term rehab. From ortho PA Patient reports that he is still struggling with pain, medial aspect knee. Patient and staff report a patient fall yesterday evening, approximately 20:00 hours. He reported to staff that he fell on his back. Today, he reports to me that he was standing up with the walker to use the bathroom, and he may have fallen back into the recliner, maybe bumping his right knee against the recliner arm, which is hard. When the hospitalist came into the room, he shared that he fell to his knees, but was able to get up quickly and back into the chair. Per nursing staff, they heard the patient fall/yell for help, were close to his room, and had responded to him within seconds. States that he did not hit his head. Pain managed with scheduled and PRN medications, ice. He is now taking oral Dilaudid for pain. States that he feels the pain medication is just sugar pills, and is not touching the pain. Denies lateral knee pain, posterior knee pain, or lower leg pain. DVT prophylaxis: apixiban, 5mg twice daily, SCDs, walking. He is motivated to work with PT, but reluctant and fearful of the pain, thus PT is not progressing great for him. Denies fevers, chills, aches, N/V, CP, SOB/POTTER, or lightheadedness. Notable Labs, Micro, Rads, Interventions: AVSS. mild hyponatremia. reviewed xray. Objective: a/o x 3 Vitals: see above Lungs: Clear. Cardiac: S1S2. left knee: surgical dressing dry and intact. I examined him with ortho. collateral ligaments, straight leg raise both normal. Disposition/Potential discharge - TCU stay to start ROSA. Today I spent 25 minutes seeing the patient, reviewing Expanse and EPIC notes/diagnostics, discussing the care plan with our care time that includes social work, PT/OT, pharmacy, RT, halfway and documenting my impressions and plan in the medical record. Exam Const: Vital Signs, click to edit/add: Vital Signs - 24 hr 06/20/24 15:00 06/20/24 15:00 06/20/24 15:00 Temperature Pulse Rate Pulse Rate [Right Pulse Oximeter] 119 H Respiratory Rate 16 Blood Pressure [Le ft Arm] Blood Pressure [Ri ght Arm] Pulse Oximetry 96 99 Oxygen Delivery Me thod Room Air 06/20/24 15:00 06/20/24 20:10 06/20/24 22:06 Temperature 97.4 F L Pulse Rate Pulse Rate [Right Pulse Oximeter] 119 H 101 H Respiratory Rate 16 20 Blood Pressure [Le ft Arm] Blood Pressure [Ri ght Arm] 107/58 L 93/66 114/65 Pulse Oximetry 99 94 Oxygen Delivery Me thod Room Air Room Air 06/20/24 23:00 06/20/24 23:00 06/20/24 23:00 Temperature 98.3 F Pulse Rate 92 Pulse Rate [Right Pulse Oximeter] 94 Respiratory Rate 16 Blood Pressure [Le ft Arm] Blood Pressure [Ri ght Arm] 110/72 Pulse Oximetry 95 95 Oxygen Delivery Me thod Room Air 06/20/24 23:00 06/20/24 23:00 06/21/24 02:38 Temperature 97.6 F Pulse Rate Pulse Rate [Right Pulse Oximeter] 94 95 Respiratory Rate 16 16 Blood Pressure [Le ft Arm] Blood Pressure [Ri ght Arm] 100/66 Pulse Oximetry 95 97 Oxygen Delivery Me thod Room Air Room Air 06/21/24 07:00 06/21/24 07:00 06/21/24 07:33 Temperature 97.7 F Pulse Rate 103 H Pulse Rate [Right Pulse Oximeter] 100 Respiratory Rate 18 Blood Pressure [Le ft Arm] 111/69 Blood Pressure [Ri ght Arm] Pulse Oximetry 95 94 Oxygen Delivery Wa thod Room Air Room Air 06/21/24 12:37 Temperature 97.5 F L Pulse Rate Pulse Rate [Right Pulse Oximeter] 89 Respiratory Rate 16 Blood Pressure [Le ft Arm] 108/70 Blood Pressure [Ri ght Arm] Pulse Oximetry 94 Oxygen Delivery Wa thod Room Air
--- NOTE | 2024-06-21 15:42 | PC.SOCIAL ---
Discharge planning: SW met with patient and patient's to discuss rehab. Patient and would like [facility] as their top choice, [facility] theirs second, and [facility] as their third. SW sent referral to [facility]. [facility] states they will be able to accept patient on 06/22. SW spoke with patient's and informed her of this via phone. Patient was asleep so SW did not update. Patient's feels uncomfortable transporting patient in her own vehicle and would like [facility]. SW discussed that the cost would be about $113 and that SW would be by in the morning to have a form signed. SW also explained the information received from [facility] about copay - days 1-20 there is no copay and days 21-100 are a copay of $214 until their deductible is met. Patient's expressed understanding. SW spoke with [facility] to confirm that they did not need orders two hours prior to arrival if he arrives at 1000, [facility] confirmed that they only need the orders prior to arrival and not two hours prior. SW inquired if Covid testing is still needed. [facility] states it is still required. SW sent PAS to [facility]: [id number]. SW updated charge coordinator that [facility] for 1000 is needed for patient and that he will need a Covid test in the morning.
--- NOTE | 2024-06-21 18:52 | PC.NURSE ---
End of Shift: Pt is A/Ox4 w/ periodic confusion. Ax1 w/ walker and belt. VSS, Pain reported as 9-10. Dilaudid and Tylenol provided with ice. Pt reports improvement of pain to 8. Pt ambulates to bathroom and walks in the wood, performs exercises per PT. Pt last bowel movement Wednesday before surgery. Reports passing gas. Call light within reach and calls appropriately. -Robbie Gay, Student Nurse
[2024-06-21] MEDS: CYCLOBENZAPRINE HCL 10 MG TABLET 5 MG PO (23:03)
[2024-06-22 02:37] VITALS: BP 106/74; PULSE 109; RESP 16; TEMP 36.3; O2SAT 94
[2024-06-22] MEDS: ACETAMINOPHEN 500 MG TABLET 1000 MG PO ×2 (02:37→09:43)
[2024-06-22] MEDS: HYDROmorphone 2 MG TABLET PO ×2 (04:33→05:00)
[2024-06-22] MEDS: polyethylene glycoL 3350 17 GM PACK PO (06:11)
--- NOTE | 2024-06-22 06:30 | PC.NURSE ---
End of shift [id number]: Pt ambulating in wood x2 this shift w/ A1 walker and GB. Tolerating well. VSS. Pt rating pain 5-10/10 pain.. See eMAR for interventions. Intermittent ice to site. Dressing to knee c/d/i. +cms. Pt needing encouragement to move and ambulate to the bathroom overnight. Bed alarm in place. Using call light appropriately. ?
[2024-06-22 06:41] LABS: HCO3 VBG 31 mmol/L (21-28); PCO2 VBG 46 mmHG (40-50); PO2 VBG 38.1 mmHG (25-47); pH VBG 7.437 (7.32-7.43)
[2024-06-22 06:47] LABS: Hematocrit 38.9 % (37.0-53.0); Mean Corpuscular HGB Conc 33 gm/dL (32-36); Mean Corpuscular Hemoglobin 29 pg (26-34); Mean Corpuscular Volume 88 fL (80-100); Platelet Count* 201 K/uL (140-440); Red Blood Count 4.43 m/uL (4.30-5.90); White Blood Count* 10.35 K/uL (4.50-11.00)
[2024-06-22 06:52] LABS: Slide Review Reflex No
[2024-06-22 06:56] LABS: SARS Antigen* Negative
[2024-06-22 07:01] LABS: Chloride* 99 mmol/L (96-114)
[2024-06-22 07:02] LABS: Albumin* 3.7 g/dL (3.3-5.0); Potassium* 4.3 mmol/L (3.6-5.1); Sodium* 135 mmol/L (135-149)
[2024-06-22 07:05] LABS: Anion Gap 6 mEq/L (7-15); Blood Urea Nitrogen* 14 mg/dL (7-30); Calcium* 8.4 mg/dL (8.4-10.6); Carbon Dioxide* 30 mmol/L (20-32); Creatinine* 0.8 mg/dL (0.5-1.5); Est. Creatinine Clearance* 60.88; Estimated Glomerular Filt Rate 91 ml/min; Glucose* 106 mg/dL (60-115); Phosphorus* 2.3 mg/dL (2.5-4.5)
[2024-06-22 07:51] VITALS: PULSE 99
[2024-06-22 09:02] VITALS: BP 129/95; PULSE 116; RESP 16; TEMP 36.4; O2SAT 96
[2024-06-22] MEDS: SENNOSIDES 1 TAB TABLET 2 TAB PO (09:43)
[2024-06-22] MEDS: APIXABAN 5 MG TABLET PO (09:43)
[2024-06-22] MEDS: METOPROLOL TARTRATE 25 MG TABLET 12.5 MG PO (09:44)
--- NOTE | 2024-06-22 10:03 | PC.NURSE ---
Nurse to nurse was called to Lucia at [facility]. All questions were answered. The patient is on the way to the facility via EMS, the patients is following them to the facility. Carin PEÑA BSN
--- NOTE | 2024-06-22 12:24 | PC.SOCIAL ---
Discharge planning: Pt discharged to [facility] today for short-term rehab. Pt transported via non-emergent EMS. Pt's , Neelam, gladly signed the wheelchair form for non-emergent EMS cost if insurance does not cover the cost. The cost will be $113.00(92+7x3= 113). Discharge orders were secure emailed to Moriah at [facility] along with pt's negative COVID results. Pre-admission screening was completed yesterday by this worker's co-worker and sent to Moriah at [facility]. Social work to follow-up as needed.
== END 2024-06-22 09:55 | DRG 470 ==
LOC: OR 13:01 → MEDSURG 13:01
PROVIDERS: Family Medicine; Student in an Organized Health Care Education/Training Program; Admitting Provider Orthopaedic Surgery Sports Medicine; PCP Family Medicine; Visit Provider Orthopaedic Surgery Sports Medicine
PROC: 0SRC0J9 Replacement of Right Knee Joint with Synthetic Substitute, Cemented, Open Approach (ICD-10-PCS; CPT 27447; principal; 2024-06-19 11:00)
DX: M17.11 Unilateral primary osteoarthritis, right knee (principal); K22.2 Esophageal obstruction; H90.A31 Mixed conductive and sensorineural hearing loss, unilateral, right ear with restricted hearing on the contralateral side; I48.91 Unspecified atrial fibrillation; N32.81 Overactive bladder; G89.18 Other acute postprocedural pain; Z79.01 Long term (current) use of anticoagulants; R11.2 Nausea with vomiting, unspecified; W18.30XA Fall on same level, unspecified, initial encounter; Z91.81 History of falling; Y92.230 Patient room in hospital as the place of occurrence of the external cause; Z96.641 Presence of right artificial hip joint
CPT/HCPCS: 01402; 36415; 64445; 64447; 64454; 73560; 76942; 80069; 82565; 82803; 84132; 84295; 84520; 85025; 85027; 87426; 93971; 97110; 97116; 97162; 97165; 97530; 97535; 99100; A9270; C1776; J0665; J0690; J1171; J2250; J2371; J2405; J2704; J3010; J7030; J7120

== ENCOUNTER 2024-06-22 09:50 | Outpatient (CLI) | payer MEDICARE, SELFPAY | END 2024-06-22 09:51 | disposition home or self-care (01) | LOC: AMB 06-23 09:27 | PROVIDERS: PCP Family Medicine; Visit Provider Emergency Medicine | DX: G89.18 Other acute postprocedural pain (principal); Z96.651 Presence of right artificial knee joint | CPT/HCPCS: A0425; A0428 ==

== ENCOUNTER 2024-07-02 04:45 | Emergency (ER) | payer MEDICARE, SELFPAY ==
[2024-07-02 04:48] VITALS: BP 104/64; PULSE 95; RESP 20; TEMP 36.3; O2SAT 100; BMI 27.3
--- NOTE | 2024-07-02 05:23 | CRLHL7_ITS ---
For Patients: As a result of the Century Cures Act, medical imaging exams and procedure reports are released immediately into your electronic medical record. You may view this report before your referring provider. If you have questions, please contact your health care provider. INDICATION: Increased postop pain. TECHNIQUE: Ultrasound venous duplex lower right extremity. Compression venous exam was performed using pedroza-scale, color Doppler, and spectral Doppler analysis. COMPARISON: 06/19/2024. FINDINGS: Deep veins: Sonographic imaging demonstrates the right common femoral, deep femoral, superficial femoral, popliteal, posterior tibial and the contralateral right common femoral veins to be fully compressible with normal color Doppler blood flow. Superficial veins: Greater saphenous vein is fully compressible. A popliteal fluid collection measures 3 x 2 x 1 cm. IMPRESSION: Normal right lower extremity venous ultrasound, no sign of deep venous thrombosis. A 3 x 2 x 1 cm fluid collection is in the popliteal fossa. A ruptured popliteal cyst is possible. Dictated by Niko Craig MD @ 07/02/2024 7:33:38 AM (Electronically Signed)
--- NOTE | 2024-07-02 05:27 | ED_ITS ---
HPI - General Adult General Chief complaint: Post Op Complication Stated complaint: post op right knee pain Time Seen by Provider: 07/02/24 05:08 Source: patient and family Mode of arrival: ambulatory Limitations: no limitations History of Present Illness HPI narrative: 79-year-old male presents to the emergency department 13 days post total knee arthroplasty. Notes that his pain is not well controlled since he discharge from the longterm and once unable to sleep overnight. Pain is in the right knee and radiates to the posterior popliteal fossa area. No pain in the hip or calf. Reports that is 6/10 with rest, 8/10 with movement. No fever, no drainage from the incision. Appetite normal. Patient made slow progress in the hospital after his knee replacement and was ultimately discharged to a halfway facility. He struggled with pain control and was not meeting therapy goals to discharge home. He was in the halfway facility until 3 days ago when he discharge to home. He followed up with his surgical team the following day, they reported no abnormalities other than suboptimally controlled pain. From what he is describing, he certainly making slower progress and what would be expected for a post up knee. He is anticoagulated on apixaban and has a history of AFib. He is not currently using any NSAIDs. He is taking oxycodone 5 mg t.i.d. for pain and Tylenol 1300 mg t.i.d. as well, reporting that his pain control is inadequate. He reports that he was unable to sleep last night. They called his home health RN, she had made her 1st visit on Wednesday evening and she advised and that there was not really anything she could do for them over the phone and if they were concerned to be evaluated in the ED. did not try any sleep aids or other medications to help with symptoms. Did not try taking extra oxycodone. Last bowel movement was yesterday, reports that this is going fine. No increased swelling in the leg. Pain is worse with movement. No history of DVT or PE. No syncope, no falls or injury, no shortness of breath, no cardiac symptoms, no weakness, no lightheadedness. Past medical history and hospital course reviewed. Medication usage reviewed. Nonsmoker. ROS notable for the pain in the right knee only. Otherwise denies times 12 systems. Related Data Home Medications ?Medication ?Instructions ?Recorded ?Confirmed apixaban 5 mg tablet (Eliquis) 5 mg PO BID 12/11/22 06/30/24 verapamil 180 mg tablet,extended 180 mg PO DAILY 12/11/22 06/30/24 release cholecalciferol (vitamin D3) 25 1,000 unit PO DAILY 06/15/24 06/30/24 mcg (1,000 unit) capsule Previous Rx's ?Medication ?Instructions ?Recorded acetaminophen 650 mg 1,300 mg (2 x 650 mg) PO Q8H #90 06/22/24 tablet,extended release (Tylenol tabs Arthritis Pain) cyclobenzaprine 5 mg tablet 5 mg PO TID PRN muscle spasm #30 06/22/24 tabs lidocaine 4 % topical patch 1 patch topical DAILY PRN pain #10 06/22/24 ea polyethylene glycol 3350 17 17 g PO DAILY #238 grams 06/22/24 gram/dose oral powder (Miralax) sennosides 8.6 mg-docusate sodium 1 tab-cap PO BID #30 tabs 06/22/24 50 mg tablet (Senna-S) oxycodone 5 mg tablet 2.5 - 5 mg (0.5 - 1 x 5 mg) PO Q6H 06/30/24 PRN pain #25 tabs celecoxib 200 mg capsule (Celebrex) 200 mg PO DAILY #10 caps 07/02/24 hydroxyzine pamoate 25 mg capsule 25 mg PO BID PRN #30 caps 07/02/24 Allergies Allergy/AdvReac Type Severity Reaction Status Date / Time No Known Drug Allergies Allergy Verified 06/19/24 09:23 [facility] Medical History Osteoarthritis of right knee ?M17.11 - Unilateral primary osteoarthritis, right knee (ICD-10) Left hydrocele ?N43.3 - Hydrocele, unspecified (ICD-10) Risk for falls ?Z91.81 - History of falling (ICD-10) BPH without urinary obstruction ?N40.0 - Benign prostatic hyperplasia without lower urinary tract symptoms (ICD-10) Overactive bladder ?N32.81 - Overactive bladder (ICD-10) Insomnia ?G47.00 - Insomnia, unspecified (ICD-10) Arthritis of carpometacarpal (CMC) joint of left thumb ?M18.12 - Unilateral primary osteoarthritis of first carpometacarpal joint, left hand (ICD-10) Stricture and stenosis of esophagus ?K22.2 - Esophageal obstruction (ICD-10) Mixed conductive and sensorineural hearing loss of right ear with restricted hearing of left ear ?H90.A31 - Mixed conductive and sensorineural hearing loss, unilateral, right ear with restricted hearing on the contralateral side (ICD-10) Cholesteatoma ?H71.90 - Unspecified cholesteatoma, unspecified ear (ICD-10) Onychomycosis ?B35.1 - Tinea unguium (ICD-10) Afib ?I48.91 - Unspecified atrial fibrillation (ICD-10) Surgical History (Updated 06/30/24 @ 12:27 by Gerry Alba PA-C) History of arthroplasty of right knee (06/19/24) ?Z96.651 - Presence of right artificial knee joint (ICD-10) History of bilateral cataract extraction (07/2020) ?Z98.41 - Cataract extraction status, right eye (ICD-10) ?Z98.42 - Cataract extraction status, left eye (ICD-10) History of esophagogastroduodenoscopy (EGD) (10/2019) ?Z98.890 - Other specified postprocedural states (ICD-10) H/O umbilical hernia repair (08/11/01) ?Z98.890 - Other specified postprocedural states (ICD-10) ?Z87.19 - Personal history of other diseases of the digestive system (ICD-10) Cholesteatoma of right ear (1997) ?H71.91 - Unspecified cholesteatoma, right ear (ICD-10) History of tonsillectomy (1951) ?Z90.89 - Acquired absence of other organs (ICD-10) History of transurethral resection of prostate (11/2013) ?Z98.890 - Other specified postprocedural states (ICD-10) ?Z90.79 - Acquired absence of other genital organ(s) (ICD-10) Social History (Updated 04/21/24 @ 10:56 by Tessy Celaya ~ [facility], [facility]) What is your current living situation?: I presently have a place to live In the past 12 months, utilities in danger of being shut off: no In past 12 months, lack of transportation kept you from medical appts, meetings, work, or getting things needed for daily living: no In the past 12 mos, have been you worried that your food would run out before you had money to buy more?: never true In the past 12 mos, the food you bought just didn't last and you didn't have money to buy more?: never true Smoking Status: Never smoker Do you use any of these nicotine containing products: None Second hand tobacco smoke exposure: No How often do you have a drink containing alcohol: never AUDIT-C Alcohol total score: 0 Non-prescribed substance use: denies use Caffeine: Yes How often does anyone, including family, friends and others, physically hurt you : never How often does anyone, including family, friends and others, insult or talk down to you: never How often does anyone, including family, friends and others, threaten you with harm: never How often does anyone, including family, friends and others, scream or curse at you: never service: No Exam Const: Vital Signs, click to edit/add: Vital Signs - 24 hr 07/02/24 04:48 Temperature 97.3 F L Pulse Rate [Left P ulse Oximeter] 95 Respiratory Rate 20 Blood Pressure [Ri ght Upper Arm] 104/64 Pulse Oximetry 100 Oxygen Delivery Me thod Room Air Documenting provider has reviewed patient's vital signs: yes Common normals: alert Other: Tells meandering stories that are not pertinent to questions asked. Appears well nourished, well hydrated. HENMT: Common normals: normocephalic, moist oral mucous membranes and oropharynx normal Head and scalp: normocephalic Eye: Common normals: conjunctivae normal Conjunctiva: conjunctiva(e) normal Resp: Common normals: normal respiratory effort and no use of accessory muscles Effort & inspection: able to speak in complete sentences Cardio: Other: Rhythm sounds regular currently. History of AFib noted. No obvious murmurs. Positive S1 and S2 Extremity: Other: Midline anterior incision on right knee appears to be healing beautifully. Mild bruising and swelling as expected no severe effusion. Mild tenderness to palpation of popliteal fossa. Normal flexion and extension strength at the ankle. Normal hip flexor strength though he does report increased pain with use of all of these. He refuses to bend past about 110. Neuro: Sensorium/orientation: alert Speech: speech normal Other: No obvious focal neuro deficit with testing of the distal lower extremities. Psych: Attitude: engaged Other: Cannot list his medications, Side tracks easily in conversation unless he tells lengthy stories to jog his memory. Insight seems fair. Skin: Narrative: Mild bruising and swelling associated with incision, no significant drainage or severe redness or warmth. Course Course ED Course: 79-year-old male postop from right total knee arthroplasty with slow progress with physical therapy and pain control issues that have been present since day 1. Review of the records shows that he has weaned off of the Dilaudid and is now only taking oxycodone t.i.d. which is a decrease. I suspect that his pain is worse since he has been doing much more for himself since he discharge from the halfway facility. I cannot exclude a DVT therefore will order a venous Doppler ultrasound though this is unlikely with his use of apixaban. I think the patient's expectations for his pain control were not necessarily accurate prior to surgery. I think he might benefit from adding in NSAIDs even though he is taking apixaban. I do caution use of stronger narcotics this late in the postop course especially with some mild memory impairment that I am detecting. Will give 200 mg of Celebrex p.o. x1, 25 of Vistaril and 10 of oxycodone to get his pain under control. If this goes well and the venous Doppler ultrasound is negative, will add in Celebrex daily as well as twice daily Vistaril. Oxycodone may be taken up to 4 tablets per day. It does appear as though he has at least 12 tablets in his bottle which would get him through a couple of days to follow up with his surgical team. Reevaluation(s) Time of Reevaluation #1: 07:30 Reevaluation #1: Normal preliminary ultrasound report reviewed with patient. He is feeling much better after the Celebrex, Vistaril and oxycodone. Counseled patient that the Celebrex does have some risk to use in the setting of his apixaban but in his case he finds his pain control inadequate and more narcotic medication does not seem to be a good fit for him. We discussed the risks and benefits and agreed to a 10 day trial of this. We had extensive conversations on his pain medication regimen which will now be as follows: Continue Tylenol 1300 mg t.i.d.. Continue use of the oxycodone 5 mg twice during the day and 5-10 mg at bedtime. Within a few days I would like this wean down to 2.5 mg during the day with 5 mg at bedtime and then weaning off hopefully within a week. Additional refills will need to come from his orthopedic team if needed. Add in Vistaril 25 mg b.i.d. p.r.n. for severe pain. This will help the oxycodone work better. Begin Celebrex 200 mg nightly for 10 days, may take with food. Consider melatonin 10 mg at bedtime as needed for sleep aid. Continue senna for constipation prevention. Alarm symptoms were reviewed that would warrant ED presentation. Extensively counseled on weaning off of the oxycodone as soon as possible. Will continue the apixaban for now. Encouraged him to call his surgeon mid week and update on progress. Written instructions provided. Vital Signs Vital signs: Initial Vital Signs Temperature 97.3 F L 07/02/24 04:48 Temperature Source Temporal Artery Scan 07/02/24 04:48 Pulse Rate 95 07/02/24 04:48 Pulse Rhythm Regular 07/02/24 04:48 Respiratory Rate 20 07/02/24 04:48 Blood Pressure 104/64 07/02/24 04:48 Blood Pressure Mean 77 07/02/24 04:48 Blood Pressure Position Sitting 07/02/24 04:48 Pulse Oximetry 100 07/02/24 04:48 Oxygen Delivery Method Room Air 07/02/24 04:48 Vital Signs Temperature 97.3 F L 07/02/24 04:48 Pulse Rate 95 07/02/24 04:48 Respiratory Rate 20 07/02/24 04:48 Blood Pressure 104/64 07/02/24 04:48 Pulse Oximetry 100 07/02/24 04:48 Oxygen Delivery Method Room Air 07/02/24 04:48 Temperature 97.3 F L 07/02/24 04:48 Pulse Rate 95 07/02/24 04:48 Respiratory Rate 20 07/02/24 04:48 Blood Pressure 104/64 07/02/24 04:48 Pulse Oximetry 100 07/02/24 04:48 Oxygen Delivery Method Room Air 07/02/24 04:48 Medications Administered Medications: Discontinued Medications Generic Name Dose Route Start Last Admin Trade Name Manuel PRN Reason Stop Dose Admin Celecoxib 200 mg 07/02/24 05:23 07/02/24 05:47 Celecoxib 200 Mg Capsule PO 07/02/24 05:24 200 mg ONCE ONE Administration Hydroxyzine Pamoate 25 mg 07/02/24 05:23 07/02/24 05:47 Hydroxyzine Pamoate 25 Mg Capsule PO 07/02/24 05:24 25 mg ONCE ONE Administration Oxycodone HCl 10 mg 07/02/24 05:23 07/02/24 05:47 Oxycodone 5 Mg Tablet PO 07/02/24 05:24 10 mg ONCE ONE Administration Medical Decision Making Imaging Data Venous Doppler ultrasound: Attestation: I have reviewed the pertinent imaging results. My impression: No DVT. Mild soft tissue swelling. Radiologist's impression: IMPRESSION: Normal right lower extremity venous ultrasound, no sign of deep venous thrombosis. A 3 x 2 x 1 cm fluid collection is in the popliteal fossa. A ruptured popliteal cyst is possible. Dictated by Niko Craig MD @ 07/02/2024 7:33:38 AM Discharge Plan Discharge Clinical Impression: Post-operative pain Patient Disposition: Home w/ Parent or Adult Condition: Improved Instructions: Pain Management (ED) Additional Instructions: As we discussed, your postoperative course seems uncomplicated. Unfortunately, knee replacements are quite painful. I am not sure that you were really prepared for how much pain and work goes into the recovery process. Continue using Tylenol 2 tablets 3 times daily as you are doing. I am hesitant to recommend more narcotics due to the risk of sedation, memory problems and constipation. I would recommend that we add in Celebrex at bedtime for the next 10 days. I would like for you to take 1 pill once nightly. This is an anti-inflammatory medication that should help reduce your pain. It has to be use carefully in the setting of your blood thinners, but I do feel like the benefit outweighs the risk since your pain is so bothersome to you. As far as the oxycodone, continue using them as needed, 3-4 times per day. You may add in 1 extra tablet at nighttime for a total of 10 mg at night and four total tablets daily. I will also prescribe some Vistaril for you to take 1 tablet twice daily. This is a an antihistamine that actually works very well with oxycodone to help enhance the pain control properties without adding more narcotic medication. I would recommend that you take 1 tablet in the afternoon and 1 at bedtime. Remember that gentle sleep aids can also be helpful. I would recommend that you at in 10 mg of melatonin at bedtime to help you better sleep while you are recovering. As your pain gradually improves over the next few days, try to wean down on the oxycodone, going to a half of a tablet 3 times da julienne and possibly just 1 full tablet at bedtime. Hopefully you will be off of the oxycodone except maybe at bedtime by mid week. If you need a refill of your oxycodone, please speak with the orthopedic surgeon's office. Please give them at least 24 hours notice for all refills. I am hopeful that the Vistaril and Celebrex will greatly help your pain. If you have high fever, signs of infection, new severe changes, please contact your orthopedic surgeon or have this re-evaluated in the emergency room. Keep any upcoming physical therapy and physician appointments. Keep aggressively working through your physical therapy. Activity Level: Activity as Tolerated Discharge Diet: Regular Prescriptions: New celecoxib [Celebrex] 200 mg capsule 200 mg PO DAILY Qty: 10 1RF hydroxyzine pamoate 25 mg capsule 25 mg PO BID PRNQty: 30 1RF Rx Instructions: Booster medicine for oxycodone if pain is severe No Action verapamil 180 mg tablet extended release 180 mg PO DAILY Eliquis 5 mg tablet 5 mg PO BID oxycodone 5 mg tablet 2.5 - 5 mg PO Q6H MDD 6 PRN (Reason: pain) Qty: 25 0RF cholecalciferol (vitamin D3) 25 mcg (1,000 unit) capsule 1,000 unit PO DAILY sennosides-docusate sodium [Senna-S] 8.6-50 mg tablet 1 tab-cap PO BID Qty: 30 0RF acetaminophen [Tylenol Arthritis Pain] 650 mg tablet extended release 1,300 mg PO Q8H Qty: 90 0RF polyethylene glycol 3350 [Miralax] 17 gram/dose powder 17 g PO DAILY Qty: 238 0RF cyclobenzaprine 5 mg tablet 5 mg PO TID PRN (Reason: muscle spasm) Qty: 30 0RF lidocaine 4 % adhesive patch,medicated 1 patch topical DAILY PRN (Reason: pain) Qty: 10 0RF Rx Instructions: apply to the inside of the right knee where it is the most painful Follow Up/Referrals: Zaid Gill MD [Primary Care Provider] - Stand Alone Forms: Moe Delo Info Instructions
[2024-07-02] MEDS: CELECOXIB 200 MG CAPSULE PO (05:47)
[2024-07-02] MEDS: OXYCODONE 5 MG TABLET 10 MG PO (05:47)
[2024-07-02] MEDS: hydrOXYzine pamoate 25 MG CAPSULE PO (05:47)
--- OUTSIDE RECORDS SUMMARY | 2024-07-02 17:40 | XMS_ITS ---
Author Organization [facility] ter Care Team Providers Care Chart Writer Name Role Phone Janiya Yu Unavailable Unavailable Evette Willis Unavailable Unavailable Patrice Zamora Unavailable Unavailable Allergies and adverse reactions No Known Allergies Care Team Name Role Address Phone Organization Dates Patrice Zamora PCP [facility] [address], [address], [place], [place], [facility], [facility] (Office): [facility] 06/22/2024 - 06/29/2024 Janiya Yu [facility] 06/22/2024 - 06/29/2024 Evette Willis [facility] [address], [place], [address], [facility] (Office): : [facility] 06/22/2024 - 06/29/2024 Goals Section Description Status Target Date I will be free of falls through the review date. Active 09/20/2024 I will improve current level of function in (SPECIFY ADLs) through the review date. I will be able to: (SPECIFY) Active 09/21/19 25 I will maintain involvement in cognitive stimulation, social activities as desired through review date. Active 09/20/2024 I will verbalize adequate re lief of pain or ability to cope with incompletely relieved pain through the review date. Active Resident Intake of Nutrients Will Meet Metabolic Needs Active 09/20/2024 Functional Status Code Name Recorded Time Value Entered By 1 step (curb) 06/29/2024 Not assessed [email or web address] 12 steps 06/29/2024 Not assessed [email or web address] 4 steps 06/29/2024 Not assessed Cathy.[email or web address] Ambulation 06/29/2024 Supervision [email or web address] Ambulation 06/29/2024 Independent Cathy.[email or web address] Bathing 06/28/2024 Not assessed James [email or web address] Car transfer 06/29/2024 Not assessed Cathy.[email or web address]@ [email or web address] Chair/acy-es-uttsj transfer 06/29/2024 Independent [email or web address] Does the resident use a wheelchair and/or scooter? 06/29/2024 Yes (qualifier value) Cathy.[email or web address] Dressing 06/29/2024 Independent Cathy.[email or web address] Eating 06/29/2024 Setup or clean-u p assistance [email or web address] Feeding or Eating 06/29/2024 Not assessed Cathy.[email or web address] Indicate the type of wheelchair or scooter used 06/29/2024 Independent Cathy.Tamika [email or web address] Indicate the type of wheelchair or scooter used 06/29/2024 Manual wheelchair (physical object) [email or web address] Lower body dressing 06/29/2024 Independent Cathy. [email or web address] Lying to sitting on side of bed 06/29/2024 Independent [email or web address] Oral hygiene 06/29/2024 Independent Cathy.[email or web address]@ [email or web address] Personal hygiene 06/29/2024 Independent Cathy.Stefano [email or web address] Picking up object 06/29/2024 Independent Cathy.[email or web address] Putting on/taking off footwear 06/29/2024 Independent [email or web address] Roll left and right 06/29/2024 Independent Cathy. [email or web address] Shower/bathe self 06/29/2024 Supervision or touching assistance [email or web address] Sit to lying 06/29/2024 Independent Cathy.[email or web address]@ [email or web address] Sit to stand 06/29/2024 Independent Cathy.[email or web address]@ [email or web address] Toilet transfer 06/29/2024 Independent Cathy.[email or web address] Toileting 06/29/2024 Independent Cathy.[email or web address]@ [email or web address] Toileting hygiene 06/29/2024 Independent Cathy.[email or web address] [email or web address] Transferring 06/29/2024 Independent Cathy.[email or web address]@ [email or web address] Upper body dressing 06/29/2024 Independent Cathy. [email or web address] Walk 10 feet 06/29/2024 Independent Cathy.[email or web address]@ [email or web address] Walk 150 feet 06/29/2024 Supervision or t ouching assistance [email or web address] Walk 50 feet 06/29/2024 Supervision or t ouching assistance [email or web address] Walking 10 feet on uneven surfaces 06/29/2024 Supervision or touching assistance [email or web address] Wheel 150 feet 06/29/2024 Supervision or t ouching assistance [email or web address] Wheel 50 feet with two turns 06/29/2024 Setup or clean-up assistance [email or web address] Immunizations Immunization Status Vaccine Details Vaccine Code CodeSystem Date Notes Influenza completed Influenza, high-dose, split virus, quadrivalent, injectable, preservative free 197 CVX created date: 06/22/2024 administere d date: 12/22/2023 Tetanus completed Td(adult) unspecified formulation 139 CVX created date: 06/22/2024 administere d date: 09/15/2016 Prevnar 13 completed pneumococcal conjugate vaccine, 13 valent 133 CVX created date: 06/22/2024 administere d date: 06/01/2014 COVID-19 Moderna Booster completed SARS-COV-2 (COVID-19) vaccine, mRNA, spike protein, LNP, preservative free, 100 mcg/0.5mL dose or 50 mcg/0.25mL dose Mfg: MODERNA 207 CVX created date: 06/22/2024 administere d date: 05/22/2024 Shingles (live) completed zoster vaccine, live 121 CVX created date: 06/22/2024 administere d date: 09/05/2010 Shingles (recombinant) completed zoster vaccine recombinant 187 CVX created date: 06/22/2024 administere d date: 07/18/2020 Shingles (recombinant) completed zoster vaccine recombinant 187 CVX created date: 06/22/2024 administere d date: 03/11/2020 Pneumococcal PPSV23 completed pneumococcal polysaccharide vaccine, 23 valent 33 CVX created date: 06/22/2024 administere d date: 01/01/2012 Prevnar 20 completed Pneumococcal conjugate vaccine 20-valent (PCV20), polysaccharide [id number] conjugate, adjuvant, preservative free 216 CVX created date: 06/22/2024 administere d date: 12/16/2022 RSVpreF3 completed Respiratory syncytial virus (RSV), vaccine, bivalent, protein subunit RSV prefusion F, diluent reconstituted, 0.5 mL, preservative free 305 CVX created date: 06/22/2024 administere d date: 11/19/2022 Medications Section Medication Name Status Code CodeSystem Dose Route Frequency Admin Type Sig Text Start Date End Date HYDROmorphone HCl Oral Tablet 4 MG aborted 027073 RXNORM 1 tablet Oral as needed PRN Give 1 tablet by mouth every 4 hours as needed for Pain relate d to PAIN IN RIGHT KNEE (M25.5 61) 06/28 Sennosides-Do cusate Sodium Oral Tablet 8.6-50 MG aborted 820631 RXNORM 1 tablet Oral two times a day Routine Give 1 tablet by mouth two times a day relate d to DRUG INDUCE D CONSTI PATION (K59.0 3) 06/29 Eliquis Oral Tablet 5 MG aborted 805554 7 RXNORM 1 tablet Oral two times a day Routine Give 1 tablet by mouth two times a day relate d to UNSPEC IFIED ATRIAL FIBRIL LATION (I48.9 1) 06/29 Cholecalcifer ol Oral Tablet 25 MCG (1000 UT) aborted 123717 RXNORM 1 tablet Oral one time a day Routine Give 1 tablet by mouth one time a day for Supple ment 06/29 Cyclobenzapri ne HCl Oral Tablet 5 MG aborted 030959 RXNORM 1 tablet Oral as needed PRN Give 1 tablet by mouth as needed for Muscle Spasm relate d to OTHER MUSCLE SPASM (M62.8 38) 5mg three times a day as needed 06/26 Lidocaine External Patch 4 % aborted 284911 4 RXNORM n/a n/a Topical as needed PRN Apply to Inside of R Knee topica lly as needed for Pain relate d to PAIN IN RIGHT KNEE (M25.5 61) Apply to inside of Right knee where it is most painfu l daily as needed ; on for 12 hours, remove for 12 hours 06/23 Polyethylene Glycol 3350 Powder aborted 17 gram Oral one time a day Routine Give 17 gram by mouth one time a day relate d to DRUG INDUCE D CONSTI PATION (K59.0 3) mix with 4-8 ounces of fluid and drink 06/29 Acetaminophen ER Oral Tablet Extended Release 650 MG aborted 274121 9 RXNORM 2 tablet Oral three times a day Routine Give 2 tablet by mouth three times a day relate d to OTHER CHRONI C PAIN (G89.2 9) 06/29 Verapamil HCl ER Oral Tablet Extended Release 180 MG aborted 343302 RXNORM 1 tablet Oral one time a day Routine Give 1 tablet by mouth one time a day relate d to UNSPEC IFIED ATRIAL FIBRIL LATION (I48.9 1) 06/29 Lidocaine External Patch 4 % aborted 369258 4 RXNORM n/a n/a Topical every morning and at bedtime Routine Apply to Inside of R Knee topica lly every mornin g and at bedtim e relate d to PAIN IN RIGHT KNEE (M25.5 61) ON at HS, OFF in AM 06/29 Tums Oral Tablet Chewable 500 MG aborted 218203 RXNORM 2 tablet Oral as needed PRN Give 2 tablet by mouth as needed for indige stion, heart burn relate d to ESOPHA GEAL OBSTRU CTION (K22.2 ) TID PRN 06/29 Problems Problem # Description Date of onset Resolved Date Code CodeSystem Concern Status 1 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 06/23/[address] active 2 DRUG INDUCED CONSTIPATION 06/23/[address] active 3 ENCOUNTER FOR OTHER ORTHOPEDIC AFTERCARE 06/23/[address] active 4 ESOPHAGEAL OBSTRUCTION 06/23/[address] active 5 HISTORY OF FALLING 06/23/[address] active 6 MIXED CONDUCTIVE AND SENSORINEURAL HEARING LOSS, UNILATERAL, RIGHT EAR WITH RESTRICTED HEARING ON THE CONTRALATERAL SIDE 06/23/[address] active 7 OTHER ACUTE POSTPROCEDURAL PAIN 06/23/[address] active 8 OTHER CHRONIC PAIN 06/23/[address] active 9 OTHER MUSCLE SPASM 06/23/[address] active 10 OVERACTIVE BLADDER 06/23/[address] active 11 OVERWEIGHT 06/23/[address] active 12 PAIN IN RIGHT KNEE 06/23/[address] active 13 PRESENCE OF RIGHT ARTIFICIAL KNEE JOINT 06/23/[address] active 14 PRIMARY INSOMNIA 06/23/[address] active 15 TINEA UNGUIUM 06/23/[address] active 16 UNILATERAL PRIMARY OSTEOARTHRITIS OF FIRST CARPOMETACARPAL JOINT, LEFT HAND 06/23/[address] active 17 UNSPECIFIED ATRIAL FIBRILLATION 06/23/[address] active 18 UNSPECIFIED CHOLESTEATOMA, UNSPECIFIED EAR 06/23/[address] active Reason for Referral No Reasons for Referral Entered Social History Social History Observation Description Start Date End Date Code Code System Current Smoking Status Tobacco smoking consumption unknown 294456895 SNOMED CT Sex Assigned At Male 1945 18108-2 [facility] Gender Identity Male [id number] [address] Vital Signs Code Code System Vitals Name Values and Units Timing Information 65689-9 [facility] Pain Level Value=2.0 06/29/2024 8310-5 [facility] Body Temperature Value=97.7 Units= F 06/29/2024 9279-1 [facility] Respiratory Rate Value=18.0 Units=/m in 06/29/2024 8462-4 [facility] Blood Pressure-Diastolic Value=64 Un its=mmHg 06/29/2024 8480-6 [facility] Blood Pressure-Systolic Avavm=320 Un its=mmHg 06/29/2024 8867-4 [facility] Heart rate Value=74.0 Units=/min 53931-2 [facility] Weight Krojv=316.0 Units=Lbs 12273-2 [facility] O2 % BldC Oximetry Pmjoa=203.0 Units =% 06/28/2024 8302-2 [facility] Height Value=70.0 Units=Inches 06/24/2024
--- OUTSIDE RECORDS SUMMARY | 2024-07-02 17:40 | XMS_ITS | Data Portability ---
Author Organization [facility], [facility] Address [address] [place] [address] Care Team Providers Care Women'S Garment Fitter Name Role Phone JOHN MIRANDA Primary Care Provider [phone] Assessment No assessment recorded. Plan of Treatment Reminders Order Date Submit Date Provider Last Modified By Organization Details Last Modified Time Details Appointments None recorded. Lab culture, urine 2021 [facility], [address], [address], [address], 09:15:28 urinalysis , dipstick 2021 [facility], [address], [address], [place], [address], 14:48:13 Referral None recorded. Procedures None recorded. Surgeries None recorded. Imaging None recorded. Medication Orders trospium 20 mg tablet 2021 [id number], [address] [place], [place], [id number], 15:16:57 Patient TargetsNo targets recorded. Patient Instructions Encounter Date Encounter Id Patient Instructions Last Modified By Organization Details Last Modified Time 11/17/2021 [id number] We have obtained a urinalysis and urine culture today. Bladder scan only 16 ml. Cystoscopy today shows partial opening of the prostate toward the bladder neck. However there is a fair amount of prostate tissue that remains that could be causing a partial blockage to the flow of urine. In addition, I think it is quite likely you have an overactive bladder causing symptoms of bladder urgency frequency and nocturia. I would recommend we put you on an antispasmodic medication for the bladder, namely trospium 20 mg twice a day. See information below on overactive bladder and nocturia. Follow-up with Dr. Kumar in 3 months. NOCTURIA Definition: Nocturia is defined as the interruption of sleep caused by the need to urinate. 78% of patients are awakened by the urge to urinate. 22% of patients will urinate at night because they are already awake. Types: Medical and kidney causes include nocturnal polyuria in which urine output at least 1/3 of total 24 hour output. Polyuria is urine output > 40 ml per kg body weight per 24 hours Decreased bladder capacity Incidence: At younger ages, more women have nocturia than men. By the 50's, prevalence is equal in men and women. 60's and higher, more common in men due to prostate problems. Co-morbidities: Associated with sleep deprivation and mortality, especially younger people. Increased risk of heart disease in younger patients but cause is not clear Voiding Diary: Helps to assess the problem Important to measure night-time urine output to total 24 hour urine output. Diary may reveal medical condition. Nocturnal polyuria due to heart failure, diabetes, sleep apnea, edema of legs Other conditions: Diabetes insipidus, excess thirst (polydipsia). Urologic conditions: UTI, overactive bladder, chronic cystitis, cancer of bladder. Treatable Causes: Sleep apnea Diuretic medications. Best to take in early afternoon rather than morning. Neurogenic bladder due to disease of NETWORK MGR. MS, spinal cord injury Overactive bladder - may use anti-spasmodic medications like oxybutynin DDAVP- sometimes used to decrease nightly urine output. Not approved by FDA in [place]. Effect of Aging: Capacity of bladder and inability to postpone urination declines Prostate enlargement can lead to bladder obstruction in men Involuntary bladder contractions increase Gravitational pooling of fluid in legs leads to more frequent night time urination Management: Avoid fluids two hours before bedtime Take medications earlier in evening May need urinal or bedside commode if difficulty walking Compression stockings and leg elevation during day to lessen nighttime urine output Take diuretics (water pills) late in afternoon instead of morning. May try low dose DDAVP to decrease nightly urine output. Will need to do blood testing of sodium level at days 4, 7 and 28 of therapy. Anticholinergic drugs often used to treat such as oxybutynin or Detrol or Vesicare. The standard recommended dose will be listed on the instructions that come with your prescription. Please be aware that this medication has possible side effects which include, but are not limited to the following: Dryness of the mouth. Constipation Drowsiness Blurred vision Possible retention of urine or slowing of the urinary stream. It may take up to 8-12 weeks for the medication to take effect, so please be patient. If the side effects are troublesome and intolerable for you, contact Dr Kumar for instructions on either reducing the dose or switching to a different medication. Not available 11/17/2021 15:13:12 Reason for Referral None Reported. Results Created Date Observation Date Name Description Value Unit Range Abnormal Flag Note LastModifiedBy Organization Detail LastModifiedTime 11/18/1911/17/2021 UA DIP CS ADVAN TUS color -advantus YELLOW yellow Not Available [facility] [place] [facility] [address], [place], [address], 11/17/2021 14:48:13 11/18/1911/17/2021 UA DIP CS ADVAN TUS appearance -advantus CLEAR clear Not Available [facility] [address], [place], [address], 11/17/2021 14:48:13 11/18/1911/17/2021 UA DIP CS ADVAN TUS glucose -advantus NEGATI VE mg/dL negati ve Not Available [facility] [address], [place], [address], 11/17/2021 14:48:13 11/18/1911/17/2021 UA DIP CS ADVAN TUS bilirubin -advantus NEGATI VE negati ve Not Available [facility] [address], [place], [address], 11/17/2021 14:48:13 11/18/1911/17/2021 UA DIP CS ADVAN TUS ketones -advantus NEGATI VE mg/dL negati ve Not Available [facility] [address] [place] [address], [place], [address], 11/17/2021 14:48:13 11/18/19 22 11/17/2021 UA DIP CS ADVAN TUS sp. gravity -advantus 1.025 1.010- 1.025 Not Available [facility] [address] [place] [address], [place], [address], 11/17/2021 14:48:13 11/18/19 22 11/17/2021 UA DIP CS ADVAN TUS pH -advantus 5.5 5.0-8. 0 Not Available [facility] [address] [place] [address], [place], [address], 11/17/2021 14:48:13 11/18/19 22 11/17/2021 UA DIP CS ADVAN TUS protein -advantus NEGATI VE mg/dL negati ve Not Available [facility] [address] [place] [address] [address], [place], [address], 11/17/2021 14:48:13 11/18/19 22 11/17/2021 UA DIP CS ADVAN TUS urobilinogen -advantus 0.2 normal Not Available [facility] [place] [facility] [address] [place] [address] [address], [place], [address], 11/17/2021 14:48:13 11/18/19 22 11/17/2021 UA DIP CS ADVAN TUS nitrites -advantus NEGATI VE negati ve Not Available [facility] [address] [place] [address], [place], [address], 11/17/2021 14:48:13 11/18/19 22 11/17/2021 UA DIP CS ADVAN TUS blood -advantus NEGATI VE negati ve Not Available [facility] [address] [place] [address], [place], [address], 11/17/2021 14:48:13 11/18/19 22 11/17/2021 UA DIP CS ADVAN TUS leukocytes -advantus NEGATI VE negati ve Not Available [facility] [address], [place], [address], 11/17/2021 14:48:13 11/18/19 22 11/17/2021 UA DIP CS ADVAN TUS performed by ANALILIA Campbell Not Available [facility] [address], [place], [address], 11/17/2021 14:48:13 11/18/19 22 11/17/2021 UA DIP CS ADVAN TUS total urine volume (mL) 10 /mL ----- ----- ----- ----- ----- ----- ----- ----- ----- ----- ----- ----- ----- ----- ---- *[facility] note the follo wing minim um quant ities for addit ional urine testi ng: - Atypi cals: 3 mL - Cytol ogy: 20 mL - GC/CH : 2 mL - FISH: 30 mL - Atypi cals w/ GC/CH : 5 mL - Cytol ogy PLUS FISH: 50 mL - Urine Cultu re: 3 mL ----- ----- ----- ----- ----- ----- ----- ----- ----- ----- ----- ----- ----- ----- ---- This lab resul t is being provi ded to you and your provi adam at the same time in compl iance with the Centu ry Cures Act. Your provi adam may not have had time to revie w and make recom menda tions based on the zaria t. Melia mcleod allow up to one week for provi adam revie w. Not Available [facility] [address], [place], [address], 11/17/2021 14:48:13 11/18/19 22 11/17/2021 URINE CULTU RE final report MICROB IOLOGY RESULT S SOURC E Void KNOWN ALLER GIES see chart TREAT MENT see chart MEDIA PLATE D AT: Media plate d on 2021 @ 1:48 PM RESUL T No Growt h This lab resul t is being provi ded to you and your provi adam at the same time in compl iance with the Centu ry Cures Act. Your provi adam may not have had time to revie w and make recom menda tions based on the resul t. Pleas e allow up to one week for provi adam revie w. Not Available [facility] [address], [place], [address], 11/19/2021 09:15:28 11/12/19 22 03/28/2021 imagi ng/di agnos tic resul t No observ ation record ed. Not Available 2021 17:19:55 Result Notes None recorded. Procedures Surgical History Date Name Laterality Status Provider Name and Address Organization Details Recorded Time 022 CystoscopyMale completed Patrice Kumar [facility] 11/17/2021 17:38:48 022 Bladder Scan completed Patrice Kumar [facility] 11/17/2021 14:47:26 018 Colonoscopy completed Siri Canada [facility] 11/17/2021 14:31:07 esophagogastroscopy completed Mariella Canada [facility] 11/17/2021 14:30:49 Hernia Repair completed Siri Canada [facility] 11/17/2021 14:30:55 Imaging Results Imaging Date Name Status LastModified by Organiz ation Details LastModified Time 03/28/2021 imaging/diag nostic result completed Information not available 11/11/2021 17:19:55 Procedure Notes None recorded. Medical Equipment None Reported. Allergies No known drug allergies Medications Name Sig Start Date Stop Date Status Note LastModified by Organization Details LastModified Time verapamil ER (SR) 180 mg tablet,exten ded release active Not Available Not Available Not Available sulfamethoxa zole 800 mg-trimethop rim 160 mg tablet TAKE 1 TABLET BY MOUTH TWICE DAILY FOR 14 DAYS 11/17 completed Not Available Not Available Not Available verapamil ER 180 mg 24 hr capsule,exte nded release active Not Available Not Available Not Available lorazepam 0.5 mg tablet TAKE 1 TABLET BY MOUTH 20 MINUTES BEFORE MRI/PROC EDURE. DO NOT DRIVE AFTER TAKING 11/17 completed Not Available Not Available Not Available benzonatate 100 mg capsule 11/17 completed Not Available Not Available Not Available azithromycin 500 mg tablet 11/17 completed Not Available Not Available Not Available trospium 20 mg tablet TAKE 1 TABLET BY MOUTH TWICE DAILY active Not Available Not Available No t Available Eliquis 5 mg tablet active Not Available Not Available Not Available Vitals Date Recorded Body height Body mass index (BMI) Body weight Provider Name and Address Organization Details Last Updated DateTime 11/17/2021 177.8 cm 25.8 kg/m2 96538.63 g Siri Canada [facility] 11/17/2021 14:28:53 Social History Question Answer Notes LastModified by [employer] Details LastModified Time Tobacco Smoking Status Never Smoker Siri kaur [facility] 11/17/2021 14:32:05 What Is Your Level Of Caffeine Consumption? None Information not available 11/17/2021 What Was The Date Of Your Most Recent Tobacco Screening? 11/17/2021 [email or web address] Information not available 11/17/2021 What Is Your Relationship Status? 3 Children [email or web address] Information not available 11/17/2021 Are You Sexually Active? No [email or web address] Information not available 11/17/2021 Has Tobacco Cessation Counseling Been Provided? No [email or web address] Information not available 11/17/2021 Sex: Unknown Functional Status Question Answer Note LastModified by [employer] Details LastModified Time Do you use any illicit or recreational drugs? No [email or web address] Information not available 11/17/2021 Do you or have you ever used any other forms of tobacco or nicotine? No Information not available 11/17/2021 What is your level of alcohol consumption? 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 Family History Relationship Description Onset Age of this Age Resolved Age Notes LastModified by Organization Details LastModified Time Father Family history of malignant neoplasm of prostate [email or web address] Not available 11/17 14:31:35 Unspecified Relation Family history of cancer of colon [email or web address] Not available 11/17 14:31:41 Unspecified Relation Family history of cardiac disorder [email or web address] Not available 11/17 14:31:54 Medical History Condition Response Heart Disease Y Past Encounters Encounter ID Performer Location Encounter Start Date Encounter Closed Date Diagnosis/Indication Diagnosis SNOMED-CT Code Diagnosis ICD10 Code Diagnosis Note [id number] Patrice Kumar MD [facility] [address] [place] [phone] 11/17/2021 14:17:31 11/17/2021 15:25:31 Increased frequency of urination 627882778 R35.0 Most likely due to overactive bladder. Overactive urinary bladder 364942988 N32.81 Causing symptoms of urinary frequency and nocturia Lower urin airam tract symptoms due to benign prostatic hypertrophy 1918638181 9101 N40.1 Status post greenlight laser vaporizati on with some improvemen t in symptoms. Nocturia d ue to benign prostatic hypertrophy 5439221862 101 R35.1 Likely due to overactive bladder Health Concerns Section Related Observation LastModified by Organization Detai ls LastModified Time None Recorded Concern Status LastModified by Organization Details LastModified Time None Recorded Advance Directives Directive None Recorded Payers Insurance Date Sequence Insurance Name Policy Number Policy Valdes Covered Member ID Valdes Member ID Guarantor Name 12/26/2021 1 UC[employer] - DOS ON OR AFTER 19 (MEDICARE REPLACEMENT/ ADVANTAGE - HMO) [id number] Zaid Maddox [id number] Zaid Maddox Notes Date Note Type Note Provider Name and Address Organization Details Recorded Time 11/17/2021 text/html Patient presents with a chief complaint of urinary urgency and frequency. PSA from 10/24/2021 was normal at 2.01. Urinalysis was normal. Previous urine culture 03/28/2021 showed no growth. Ultrasound of the bladder 03/28/2021 showed a prevoid volume of 112 cc and a postvoid volume of 20 cc. The patient presented to Dr. Pollo Mathews on October 24, 2021 with daytime urinary frequency having to void every 20 to 60 minutes in small amounts. He has nocturia x3. He has a known history of BPH and was previously on tamsulosin without significant benefit so was discontinued. Was on Flomax for two years.Urinalysis that day was negative.His father had prostate cancer.He was given a presumptive diagnosis of prostatitis and put on Bactrim DS 1 p.o. twice daily for 2 weeks. No help.He had a similar presentation March 28, 2021.PSA from 10/24/2021 was normal at 2.01. He had laser TUR at [place] 2014. He has some urinary hesitancy with difficulty evacuating bladder especially at night. Has sandra push hard to get all the urine out. No gross hematuria or dysuria. Patrice kaur [place] [facility] 11/17/2021 17:39:53
--- OUTSIDE RECORDS SUMMARY | 2024-07-02 17:41 | XMS_ITS | Clinical Summary ---
Author Organization [employer] [facility] Address [address] [place] [id number] Care Team Providers Care Syrup Mixer Assistant Name Role Phone Gilberto Gutierrez MD Unavailable Zaid Gill MD Primary Care Provider Allergies Active Allergy Reactions Criticality Noted Date Comments Homeopathic Products 10/06/2007 Runny nose and sneezing Medications vit-min eye [id number] mg capsule Take 1 Capsule by mouth two times daily. Active multivitamin (MVI) tablet Take 1 Tablet by mouth once daily. Active cholecalciferol (VITAMIN D3) 1,000 unit tablet Take 25 mcg by mouth once daily. Active apixaban (Eliquis) 5 mg tabletIndications :Longstanding persistent atrial fibrillation (HC) Take 1 Tablet (5 mg) by mouth two times daily. 180 Tablet 3 4 Active verapamil SR (CALAN SR) 180 mg Sustained-Release tabletIndications :Atrial fibrillation, unspecified type (HC) Take 1 Tablet (180 mg) by mouth once daily with a meal. 90 Tablet 3 4 Active Active Problems Problem Noted Date Diagnosed Date Bilateral chronic knee pain 03/22/2024 Overview (03/30/2024): Previous injections done outside of [facility] for knee pain March 2024: Right knee cortisone injection by Dr. Romero, 80% pain relief at 10 Days. Insomnia, idiopathic 12/15/2021 Overactive bladder 12/15/2021 BPH without urinary obstruction 12/15/2021 Mixed conductive and sensori neural hearing loss of right ear with restricted hearing of left ear 11/13/2021 Arthritis of carpometacarpal (CMC) joint of left thumb 07/01/2020 Overview (03/04/2023): June 2020: Dr. Romero injected with cortisone. Very good and lasting response. August 2021: Dr. Romero repeat CMC left thumb injection. Very good and lasting response. Feb 2023: Dr. Romero repeat CMC left thumb injection, Very good pain relief at 2 weeks after injection. Overweight 11/21/2019 Stricture and stenosis of esophagus 10/25/2019 Overview (10/25/2019): EGD 10/2019 benign esophageal stricture, reactive gastropathy, dilation performed with 51 and 54 [place] savory dilator, begin omeprazole Onychomycosis 01/25/2018 Risk for falls 01/30/2016 Atrial fibrillation 12/18/2014 Cholesteatoma, unspecified 10/21/2007 Overview (10/21/2007): 1998 done at [facility] Resolved Problems Problem Noted Date Diagnosed Date Resolved Date Sensorineural hearing loss ( SNHL) of left ear with restricted hearing of right ear 11/13/202107/2023 Testicular mass 01/02/2012 12/16/2022 Overview (01/02/2012): spermatocele or hydrocele on ultrasound 2008 Lung nodule 12/21/2009 01/01/2012 Overview (12/21/2009): [address] scan. Recommend repeating in 1 year. Due 12/26 Unspecified asthma(493.90) 06/28/2006 1 03/01/2010 Benign localized hyperplasia of prostate without urinary obstruction and other lower urinary tract symptoms (LUTS) 06/28/2006 12/16/2022 Encounters Date Type Department Care Team Description 06/20/2024 Orders Only [facility] Scanner 1 scan: (1-Ord) [facility], KNEE RT 2V, 06/20/2024 06/19/2024 Orders Only [facility] Scanner 1 scan: (1-Ord) [place], US VENOUS LE RT, 06/19/2024 06/19/2024 Orders Only [facility] Scanner 1 scan: (1-Ord) [facility], KNEE RT 2V, 06/19/2024 06/15/2024 Orders Only [facility] Scanner 1 scan: (1-Ord) [place], XR LUMBAR SPINE 2-3V, 06/15/2024 06/08/2024 11:30 AM CDT Office Visit [address] [place] [address] Nathanael Isbell MD Recheck ( ear cleaning) 06/08/2024 Orders Only [address] [address] Jossie Jacome PA <No scans attached> 06/08/2024 Travel 05/22/2024 1:15 PM CDT Office Visit [facility] [address] [place] [address] Zaid Gill MD Preoperative Exam (DOS: 06/19/2024, right knee replacement, Dr. Centeno, [facility]) 05/22/2024 Travel 05/20/2024 Travel 04/17/2024 Medical Messaging [facility] [address] [place] [address] Fernando Romero MD right knee pain from Last 3 Months Immunizations Immunization Administration Dates Next Due AMB Influenza, IIV3 (Age >=3 years)(Flu Clinic Only) 12/06/2012 Amb Influenza, Inact (High-d ose) (Flu Clinic Only) 12/30/2015,12/06/2014,01/01/2014 COVID-19 VACCINE SPIKEVAX (M ODERNA 50MCG/0.5ML) 12YO+ PFS 05/22/2024 COVID-19 vaccine (Moderna 100mcg/0.5mL) PF, MDV 06/23/2021,06/07/2020,05/10/2020 COVID-19 vaccine (Moderna Liam nadine 50mcg/0.25mL) PF, MDV 01/22/2021 Influenza A (H1N1), Inactivated 03/15/2009 Influenza A (H1N1), Inactiva adrian (Age >=3 Years) 03/15/2009 Influenza, High-dose Inactivated 12/30/2015,12/16 Influenza, High-dose Quadriv alent Inactivated 11/19/2022,11/11/2021 Influenza, IIV3 (Age 6-35 mos) 12/30/2010 Influenza, IIV3 (Age >=3 years) 12/07/19 13,11/10/2011,12/30/2010,12/03,02/24/2008,12/24/2006,12/26/2005 ,12/11/2004,12/17/2003,12/12/2002 Influenza, IIV4 11/29/2020 Influenza, Inactivated AIIV4 (Age 65+ Years) Preserv Free 11/21/2019 Influenza, Inactivated IIV3 (Age 65+ Years) Preserv Free 12/22/2023,11/24/2018,10/28/2017,12/22 Pneumococcal Conj 20-valent (Prevnar 20) 12/16/2022 Pneumococcal Poly,23-Valent (Pneumovax) 01/01/2012,12/20/2001 Pneumococcal conj 13-Valent (Prevnar 13) 06/01/2014 RSV, Recombinant ADJ Reconst ituted (Arexvy 120MCG/0.5mL) 11/19/2022 Td (Age >=7 Years) 07/29/1995 Td, Preservative Free (age >= 7 Years) 7 Tdap 10/08/2006 Zoster (Shingrix-RZV, recombinant) 07/18/2020, Zoster (Zostavax-ZVL, live) 09/05/2010 Family History Medical History Relation Name Comments Cancer-breast Father Cancer-prostate Father at 86 o f pros ca Heart Disease Father bypass Cancer-colon Maternal Aunt approx 70 Cancer-colon Maternal Grandfather 50's Heart Disease Maternal Grandfather Diabetes Maternal Grandmother Heart Disease Maternal Grandmother Anesthesia Problem No Family History Relation Name Status Comments Father Maternal Aunt Maternal Grandfather Maternal Grandmother Social History Tobacco Use Types Packs/Day Years Used Date Smoking Tobacco: Never Smokeless Tobacco: Never Tobacco Cessation:Counseling Given: No Alcohol Use Standard Drinks/Week Comments No 0 (1 standard drink = 0.6 oz pur e alcohol) PHQ-2 Answer Date Recorded PHQ-2 TOTAL SCORE 0 12/22/2023 Social Connections Answer Date Recorded Do you often feel lonely or isolated from those around you? 0 05/28/2023 Financial Resource Strain Answer Date R ecorded Difficulty of Paying Living Expenses 3 05/28/2023 Difficulty of Paying Living Expenses Not on file 05/28/2023 Food Insecurity Answer Date Recorded Do you worry your food will run out before you are able to buy more? 1 05/28/2023 Transportation Needs Answer Date Record ed Does lack of transportation keep you from medica l appointments? 1 05/28/2023 Does lack of transportation keep you from work, meetings or getting things that you need? 1 05/28/2023 Housing Stability Answer Date Recorded What is your housing situation today? 1 05/28/2023 Utilities Answer Date Recorded Do you have trouble paying f or utilities (for example, heat, electricity, water, phone)? 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 Gender Identity Not on file Sexual Orientation Not on file Obstetrics History Last Filed Vital Signs Vital Sign Reading Time Taken Comments Blood Pressure 107/68 05/22/2024 1:19 PM CDT Pulse 70 05/22/2024 1:19 PM CDT Temperature 36.6 C (97.8 F) 11/08/2023 1:29 PM CDT Respiratory Rate 18 11/08/2023 1:29 PM CDT Oxygen Saturation 99% 05/22/2024 1:19 PM CDT Inhaled Oxygen Concentration - - Weight 90.1 kg (198 lb 9.6 oz) 05/22/2024 1:19 P M CDT Height 176.3 cm (5' 9.41) 05/22/2024 1:19 PM CD T Body Mass Index 28.98 05/22/2024 1:19 PM CDT Plan of Treatment Upcoming Encounters Date Type Department Care Team (Late st Contact Info) Description 07/03/2024 10:05 AM CDT Office Visit [facility] [address] [place] [address] Zaid Gill MD [address] [place] [address] 12/07/2024 2:00 PM CDT Office Visit [facility] [address] [facility] [place] [address] Nathanael Isbell MD [address] [place] [address] Health Maintenance Due Date Last Done Comments Depression screening for age 12+ 12/21/2024 12/22/19 Medicare Wellness for age 65+ 12/22/2024, 12/16/2022, 12/15/2021, Additional history exists BMI (ht and wt on same day) for age 18+ 05/22/2025 05/22/2024, 12/22/2023, 12/16/2022, Additional history exists Tetanus booster 09/15/2026 09/15/2016, 09/16, 07/29/1995 Tdap Completed 10/08/2006 Hepatitis C screening for ag e 18-79 Completed 08/29/2015 Zoster (shingles) series for age 50+ Completed 07/18/2020, 03/11/2020, 09/05/2010 RSV vaccine for adults or Completed 11/19/2022 Pneumococcal series for age 50+ Completed 12/16/2022, 06/01/2014, 01/01/2012, Additional history exists Influenza Vaccine Completed 12/22/2023, , 11/21/2019, Additional history exists COVID-19 vaccine series Completed 05/23/19, 11/13/2023, 12/03/2022, Additional history exists Procedures Procedure Name Priority Date/Time Associated Diagnosis Comments SCAN-RADIOLOGY REPORT 06/20/2024 12:00 AM CDT SCAN-ULTRASOUND REPORT 06/19/2024 12:00 AM CDT SCAN-RADIOLOGY REPORT 06/19/2024 12:00 AM CDT SCAN-RADIOLOGY REPORT 06/15/2024 12:00 AM CDT EKG 12 LEAD Routine 05/24/2024 2:57 PM CDT Screening for heart disease PA READING EKG - NO CHARGE, COMP ONLY Routine 05/24/2024 2:56 PM CDT Screening for heart disease HEMOGLOBIN Routine 05/22/2024 1:55 PM CDT Preop examination BASIC METABOLIC PANEL Routine 05/22/2024 1:55 PM CDT Preop examination ANTI HCV Routine 08/29/2015 11:08 AM CDT Need for hepatitis C screening test from Last 3 Months or Most Recently Relevant to Health Maintenance Results * SCAN-RADIOLOGY REPORT (06/20/2024 12:00 AM CDT) Only the most recent of3 resultswithin the time period is included. Anatomical Region Laterality Modality Other us Scanner OTHER Final Result * SCAN-ULTRASOUND REPORT (06/19/2024 12:00 AM CDT) Anatomical Region Laterality Modality Other us Scanner OTHER Final Result * EKG 12 LEAD (05/24/2024 2:57 PM CDT) us Zaid Gill MD EKG ORD Final Result * PA READING EKG - NO CHARGE, COMP ONLY (05/24/2024 2:56 PM CDT) us Zaid Gill MD PB - PROVIDER READINGS Final Result * HEMOGLOBIN (05/22/2024 1:55 PM CDT) HEMOGLOBIN 14.6 13.2 - 17.1 g/dL [facility] Blood BLOOD SPECIMEN / Unknown 05/22/2024 1:55 PM CDT 05/22/2024 1:56 PM CDT us Zaid Gill MD HEMATOLOGY Final Result [facility] [address] [facility] [place] [address], [place] [phone] [facility] [address] [place] [address] * (ABNORMAL) BASIC METABOLIC PANEL (05/22/2024 1:55 PM CDT) [facility] GLUCOSE 60(L) 65 - 99 mg/dL [facility] Comment: Fasting reference interval UREA NITROGEN (BUN) 25 7 - 25 mg/dL [facility] CREATININE 1.10 0.70 - 1.28 mg/dL [facility] EGFR 69 > OR = 60 mL/min/1. 73m2 [facility] BUN/CREATININE RATIO SEE NOTE: 6 - 22 (calc) [facility] Comment: Not Reported: BUN and Creatinine are within reference range. SODIUM 140 135 - 146 mmol/L [facility] POTASSIUM 4.6 3.5 - 5.3 mmol/L [facility] CHLORIDE 102 98 - 110 mmol/L [facility] CARBON DIOXIDE 31 20 - 32 mmol/L [facility] ELECTROLYTE BALANCE 7 7 - 17 mmol/L (calc) [facility] CALCIUM 9.7 8.6 - 10.3 mg/dL [facility] Blood BLOOD SPECIMEN / Unknown 05/22/2024 1:55 PM CDT 05/22/2024 1:56 PM CDT us Zaid Gill MD CHEMISTRY Final Result [facility] [address] [place] [address], [place] [phone] [facility] [address] [place] [address] * ANTI HCV [39165.2] (08/29/2015 11:08 AM CDT) HEPATITIS C ANTIBODY Non-Reacti ve Non-Reacti ve 08/29/2015 6:33 PM CDT [facility] Blood BLOOD SPECIMEN / Unknown Venipuncture / Unknown 08/29/2015 11:08 AM CDT 08/29/2015 11:08 AM CDT Narrative [facility] - 08/29/2015 6:33 PM CDT Antibodies to HCV not detected; does not exclude the possibility of exposure to HCV. Zaid Gill MD SEND OUTS Final Result [facility] 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
--- OUTSIDE RECORDS SUMMARY | 2024-07-02 17:42 | XMS_ITS | Clinical Summary ---
Author Organization [facility] Address [address] [place] [address] Care Team Providers Care Liner Replacer Name Role Phone Unavailable Primary Care Provider Unavailabl e Source Comments Patient records contain information from all sites at [facility]. For routine questions regarding patient records, call [phone] during business hours, M-F 8:00 AM - 5:00 PM Central Time. Record requests for emergency care only can be directed to [phone] at any time.[facility] Allergies No known active allergies Medications verapamil (for_CALAN-SR) 180 mg ER tablet Take 1 tablet by mouth every morning. 11/30/2013 Active apixaban (Eliquis) 5 mg tablet Take 1 tablet by mouth 2 (two) times a day. 12/16/2021 Active vitamins A,C,E-zinc-tracy er (ICaps AREDS) 14,320 Units-226 mg-200 Units per capsule Take 1 capsule by mouth 2 (two) times a day. Active multivitamin tablet Take 1 tablet by mouth daily. Active cholecalciferol , vitamin D3, (cholecalcifero l) 25 mcg (1,000 Unit) tablet Take 25 mcg by mouth daily. Active Active Problems Problem Noted Date Diagnosed Date Excessive And Redundant Skin And Subcutaneous Ti ssue 07/07/2017 Overview (07/07/2017): Added automatically from request for surgery [id number] Immunizations Immunization Administration Dates Next Due SARS-COV-2 (COVID-19) - MODERNA(Discontinued) 12 /09/2020 Social History Tobacco Use Types Packs/Day Years Used Date Smoking Tobacco: Never Smokeless Tobacco: Never Tobacco Cessation:Counseling Given: Not Answered Alcohol Use Standard Drinks/Week Comments Never 0 (1 standard drink = 0.6 oz pur e alcohol) Humiliation, Afraid, Rape, and Kick questionnair e Answer Date Recorded Within the last year, have y ou been afraid of your partner or ex-partner? No 09/05/2022 Within the last year, have y ou been humiliated or emotionally abused in other ways by your partner or ex-partner? No Within the last year, have y ou been kicked, hit, slapped, or otherwise physically hurt by your partner or ex-partner? No 09/05/2022 Within the last year, have y ou been raped or forced to have any kind of sexual activity by your partner or ex-partner? No 09/05/2022 Social Connection and Isolat ion Panel [NHANES] Answer Date Recorded Frequency of Communication w ith Friends and Family Twice a week 09/12/2018 Frequency of Social Gatherin gs with Friends and Family More than three times a week 09/12/2018 Attends Shinto Services More than 4 times per year 09/12/2018 Active Member of Clubs or Organizations Yes 09/12/2018 Attends Club or Organization Meetings More than 4 times per year 09/12/2018 Marital Status Not on file 09/12/2018 AUDIT-C Answer Date Recorded Frequency of Alcohol Consumption Never 09/12/2018 Average Number of Drinks Not on file 019 Frequency of Binge Drinking Not on file 08/16 Overall Financial Resource Strain (CARDIA) Answe r Date Recorded How hard is it for you to pa y for the very basics like food, housing, medical care, and heating? Not hard at all 09/05/2022 Exercise Vital Sign Answer Date Recorde d On average, how many days pe r week do you engage in moderate to strenuous exercise (like a brisk walk)? 6 days 09/05/2022 On average, how many minutes do you engage in exercise at this level? 60 min 09/05/2022 Hunger Vital Sign Answer Date Recorded Within the past 12 months, y ou worried that your food would run out before you got the money to buy more. Never true 09/06/19 23 Within the past 12 months, t he food you bought just didn't last and you didn't have money to get more. Never true 09/05/2022 PRAPARE - Transportation Answer Date Re corded In the past 12 months, has l ack of transportation kept you from medical appointments or from getting medications? No 08/16 In the past 12 months, has l ack of transportation kept you from meetings, work, or from getting things needed for daily living? No 09/05/2022 Nutrition Answer Date Recorded On average, how many serving s of fruits and vegetables do you eat per day (serving size is equal to 1 cup or approximately the size of a tennis ball)? 3-5 09/05/2022 Dental Answer Date Recorded Dental: Regular Dentist Yes 09/06/19 Employment Answer Date Recorded Employment status Retired 09/05/2022 Housing Stability Answer Date Recorded What is your living situation today? I have a [facility] place to live 09/05/2022 Education Answer Date Recorded What is the highest level of school you have completed or the highest degree you have received? Doctorate 09/12/2018 Sex and Gender Information Value Date Recorded Sex Assigned at Male 07/02/2017 7:58 PM CDT Legal Sex Male 11:58 PM COSTUME DIRECTOR Gender Identity Male 07/02/2017 7:58 PM CDT Sexual Orientation Straight 07/02/2017 7: 58 PM CDT Last Filed Vital Signs Vital Sign Reading Time Taken Comments Blood Pressure 102/72 01/03/2024 3:15 PM COSTUME DIRECTOR Pulse 98 01/03/2024 3:15 PM COSTUME DIRECTOR Temperature 36.6 C (97.9 F) 01/03/2024 3:15 PM COSTUME DIRECTOR Respiratory Rate 22 01/03/2024 3:15 PM COSTUME DIRECTOR Oxygen Saturation 94% 01/03/2024 3:15 PM COSTUME DIRECTOR Inhaled Oxygen Concentration - - Weight 88.1 kg (194 lb 3.6 oz) 01/03/2024 1:11 P M COSTUME DIRECTOR Height 177 cm (5' 9.69) 11/02/2023 1:43 PM CDT Body Mass Index 28.12 11/02/2023 1:43 PM CDT Plan of Treatment Health Maintenance Due Date Last Done Comments Hepatitis C Screening 1945 Depression Screening (Annual PHQ-2) 02/16/2024 Fall Risk Screen (Annual) 02/16/2024 COVID-19 Vaccine ( season) 2024 11/13/2023, 12/03/2022, 12/08/2021, Additional history exists DTaP,Tdap,and Td Vaccines (3 - Td or Tdap) 09/15/2026 09/15/2016, 10/08/2006 Abdominal Aortic Aneurysm (AAA) Screen Discontinued 03/18/2015 Zoster Vaccines Completed 07/18/2020, 02/16, 09/05/2010 RSV vaccine - (32-36 weeks) or 60+ years Completed 11/19/2022 Pneumococcal vaccine (50+ years) Completed 12/16/2022, 06/01/2014, 01/01/2012, Additional history exists Influenza Vaccine Completed 12/22/2023, , 11/11/2021, Additional history exists Colonoscopy Discontinued 01/03/2024, 11/15, 12/16/2016 Colorectal Cancer Screening Discontinued CT Colonography Discontinued Cologuard Discontinued FIT Discontinued IPV Vaccines Aged Out No longer eligi ble based on patient's age to complete this topic Medical Devices Implanted Type Area Tube Cutter Operator Device Identifier Shelf Expiration Date Model / Serial / Lot Clp Rsp [facility] Endo 235 - [id number] Implanted:Qty: 1 on 01/03/2024 by Neil Clarke M.D. at [facility] Nguyen/Gonda Hardware e.g. pins/screws /rods [employer] [id number] 04/07/2026 [id number] / / [id number] Sheeting [place]. Non-Rein. .020 - [place] [id number] Implanted:Qty: 1 on 12/27/1997 Mesh or Patch [place] Description:Device Manufactu rer - [place]. Device Status Text - [id number]. Procedures Procedure Name Priority Date/Time Associated Diagnosis Comments COLONOSCOPY Routine 01/03/2024 1:40 PM COSTUME DIRECTOR Polyp Colon Adenomatous Personal History from Last 3 Months or Most Recently Relevant to Health Maintenance Results * Colonoscopy (01/03/2024 1:40 PM COSTUME DIRECTOR) 01/03/2024 1:40 PM COSTUME DIRECTOR Impressions [facility] - 01/03/2024 3:21 PM COSTUME DIRECTOR Post-op Diagnoses: - Two 4 to 5 mm polyps in the cecum, removed with a cold snare. Resected and retrieved. - Two 8 to 10 mm polyps in the cecum, removed with a cold snare. Resected and retrieved. - Three 2 to 3 mm polyps in the ascending colon, removed with a cold snare. Resected and retrieved. - Three 10 to 15 mm polyps in the ascending colon, removed piecemeal using a cold snare. Resected and retrieved. - Three 3 to 5 mm polyps in the transverse colon, removed with a cold snare. Resected and retrieved. - Two 8 to 10 mm polyps in the transverse colon, removed with a cold snare. Resected and retrieved. - Two 5 mm polyps in the sigmoid colon, removed with a cold snare. Resected and retrieved. Clip (MR conditional) was placed. Clip java sql developer: Sqoot. Narrative [facility] - 01/03/2024 3:21 PM COSTUME DIRECTOR Gonda 2 GI Patient Name: Zaid Maddox Date of : 1945 Age: 78 Procedure Date: 01/03/2024 Procedure: Colonoscopy Providers: Neil Clarke MD Referring Provider: Babs Lozano MD Pre-op Diagnoses: High risk colon cancer surveillance: Personal history of colonic polyps Recommendation: - Discharge patient to home. - Await pathology results. - Repeat colonoscopy in 1 year for surveillance based on pathology results. - Return to GI office. - PATHOLOGY/MICROBIOLOGY FOLLOW-UP: The ordering provider is responsible for reviewing results from specimens obtained during this endoscopic procedure and communicating the findings to the patient. If guidance is needed for interpreting endoscopic findings or pathology results, please consider a gastroenterology e-consult. - Patient has a contact number available for emergencies. The signs and symptoms of potential delayed complications were discussed with the patient. Return to normal activities tomorrow. Written discharge instructions were provided to the patient. Findings: Retroflexion in the right colon was performed. Two polyps were found in the cecum. The polyps were 4 to 5 mm in size. These polyps were removed with a cold snare. Resection and retrieval were complete. The pathology specimen was placed into Bottle A. Two polyps were found in the cecum. The polyps were 8 to 10 mm in size. These polyps were removed with a cold snare. Resection and retrieval were complete. The pathology specimen was placed into Bottle A. Three polyps were found in the ascending colon. The polyps were 2 to 3 mm in size. These polyps were removed with a cold snare. Resection and retrieval were complete. The pathology specimen was placed into Bottle A. Three polyps were found in the ascending colon. The polyps were 10 to 15 mm in size. These polyps were removed with a piecemeal technique using a cold snare. Resection and retrieval were complete. The pathology specimen was placed into Bottle A. Three polyps were found in the transverse colon. The polyps were 3 to 5 mm in size. These polyps were removed with a cold snare. Resection and retrieval were complete. The pathology specimen was placed into Bottle B. Two polyps were found in the transverse colon. The polyps were 8 to 10 mm in size. These polyps were removed with a cold snare. Resection and retrieval were complete. The pathology specimen was placed into Bottle B. Two polyps were found in the sigmoid colon. The polyps were 5 mm in size. These polyps were removed with a cold snare. Resection and retrieval were complete. The pathology specimen was placed into Bottle C. To prevent bleeding after the polypectomy, one hemostatic clip was successfully placed (MR conditional). Clip java sql developer: Sqoot. There was no bleeding at the end of the procedure. A few small-mouthed diverticula were found in the sigmoid colon. The retroflexed view of the distal rectum and anal verge was normal and showed no anal or rectal abnormalities. The perianal and digital rectal examinations were normal. Procedural Details: The patient was seen, evaluated, history reviewed, airway and heart-lung exams were performed by licensed provider and were satisfactory for planned level of sedation care. The risks, benefits and alternatives for the procedure and sedation were discussed and informed consent was obtained. A procedural pause was conducted in the presence of assisting personnel to verify the correct patient identity and procedure to be performed. Throughout the procedure, the patient's blood pressure, pulse, and oxygen saturations were monitored continuously. The Colonoscope was introduced through the anus and advanced to the cecum, identified by appendiceal orifice and ileocecal valve. The colonoscopy was technically difficult and complex due to a tortuous colon. Successful completion of the procedure was aided by straightening and shortening the scope to obtain bowel loop reduction. The patient tolerated the procedure well. The quality of the bowel preparation was adequate. The quality of the bowel preparation was evaluated using the BBPS ([place] Bowel Preparation Scale) with scores of: Right Colon = 3, Transverse Colon = 3 and Left Colon = 3 (entire mucosa seen well with no residual staining, small fragments of stool or opaque liquid). The total BBPS score equals 9. Complications: No immediate complications. Estimated Blood Loss: Estimated blood loss was minimal. Attending Participation: I personally performed the entire procedure. Neil Clarke MD 01/03/2024 3:21:00 PM This report has been signed electronically. Number of Addenda: 0 Note Initiated On: 01/03/2024 1:40 PM us Babs Lozano M.D. GI PROCEDURE ORDERABLES Fin al Result [facility] from Last 3 Months or Most Recently Relevant to Health Maintenance Insurance [facility]
== END 2024-07-02 07:38 | disposition home or self-care (01) ==
PROVIDERS: Emergency Provider Family Medicine; PCP Family Medicine
DX: G89.18 Other acute postprocedural pain (principal); M25.561 Pain in right knee; R22.41 Localized swelling, mass and lump, right lower limb
CPT/HCPCS: 93971; 99284; A9270

== ENCOUNTER 2024-07-18 14:50 | Emergency (ER) | payer MEDICARE, SELFPAY ==
--- OUTSIDE RECORDS SUMMARY | 2024-07-18 14:52 | XMS_ITS | Data Portability ---
Author Organization [place] [facility], [facility] Address [address] [place] [address] Assessment Encounter Date Assessment Date Assessment LastModified by Organization Details LastModified Time 05/16/2024 05/16/2024 ASSESSMENT: Patient is a good candidate for conservative care and the prognosis is for a favorable outcome that achieves the patients' goals. We discussed etiology, activity modifications, home care, and other treatment options. Initially, it is recommended that the patient receive in-office treatment 1 times per week for 8 weeks at which time a re-evaluation will be performed to determine an appropriate change in plan. Initially, treatment will focus on joint manipulation to restore range of motion and reduce pain. We will slowly progress to therapeutic exercises and activities to improve function, strength, and stability may also be used as warranted. If the patient is not responding as expected, more invasive procedures will be discussed along with a referral. All considerations above were discussed with the patient and questions answered to satisfaction. If the patient should have any additional questions, or should the condition evolve or worsen, the patient should not hesitate to contact our office. Not available 05/17/2024 09:26:39 05/22/2024 05/22/2024 ASSESSMENT: Patient is a good candidate for conservative care and the prognosis is for a favorable outcome that achieves the patients' goals. We discussed etiology, activity modifications, home care, and other treatment options. Initially, it is recommended that the patient receive in-office treatment 1 times per week for 8 weeks at which time a re-evaluation will be performed to determine an appropriate change in plan. Initially, treatment will focus on joint manipulation to restore range of motion and reduce pain. We will slowly progress to therapeutic exercises and activities to improve function, strength, and stability may also be used as warranted. If the patient is not responding as expected, more invasive procedures will be discussed along with a referral. All considerations above were discussed with the patient and questions answered to satisfaction. If the patient should have any additional questions, or should the condition evolve or worsen, the patient should not hesitate to contact our office. Not available 05/22/2024 16:48:56 Plan of Treatment Reminders Order Date Submit Date Provider Last Modified By Organization Details Last Modified Time Details Appointments None record ed. Lab None record ed. Referral None record ed. Procedures None record ed. Surgeries None record ed. Imaging None record ed. Medication Orders None record ed. Patient TargetsNo targets recorded. Patient InstructionsNo instructions recorded. Reason for Referral None Reported. 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 Procedures Surgical History Date Name Laterality Status Provider Name and Address Organization Details Recorded Time 26550: Spinal manipulation , 3 to 4 regions completed [address], [place], [address], [facility] 05/22/2024 16:48:56 50623: Spinal manipulation , 3 to 4 regions completed Stefano Tran DC [address], [place], [address], [facility] - [facility] 05/17/2024 09:26:53 Imaging Results None recorded. Procedure Notes None recorded. Medical Equipment None Reported. Medications Name Sig Start Date Stop Date Status Note LastModified by Organization Details LastModified Time Gavilyte-C 240 gram-22.72 gram-6.72 gram-5.84 gram oral solution DO 1ST PART OF PREP 6 PM NIGHT BEFORE APPT AND START 2ND PART 3 HOURS BEFORE REPORT TIME active Not Available Not Available No t Available Vitals None Recorded Social History None recorded. Functional Status None recorded. Mental Status None recorded. Family History Nothing Reported. Medical History No medical history recorded. Past Encounters Encounter ID Performer Location Encounter Start Date Encounter Closed Date Diagnosis/Indication Diagnosis SNOMED-CT Code Diagnosis ICD10 Code Diagnosis Note [id number] Stefano Tran [facility] [address] [place] [address] 05/16/2024 12:05:11 05/17/2024 09:31:59 Lumbar segmental dysfunction 939237403 M99.03 Low back pain 335691051 M54.50 Somatic dy sfunction of sacral spine 071109623 M99.04 Thoracic s egmental dysfunction 365956344 M99.02 [id number] [facility] & [address] [place] [address] 05/22/2024 11:56:47 05/22/2024 16:49:49 Lumbar segmental dysfunction 433162367 M99.03 Low back pain 090139928 M54.50 Somatic dy sfunction of sacral spine 937174023 M99.04 Thoracic s egmental dysfunction 090694113 M99.02 Health Concerns Section Related Observation LastModified by Organization Detai ls LastModified Time None Recorded Concern Status LastModified by Organization Details LastModified Time None Recorded Advance Directives Directive None Recorded Payers Encounter Date Sequence Insurance Name Policy Number Policy Valdes Covered Member ID Valdes Member ID Guarantor Name 05/16/2024 1 [employer] - DOS ON OR AFTER 19 (MEDICARE REPLACEMENT/ ADVANTAGE - HMO) [id number] Zaid Maddox [id number] Tyrese Tan 05/22/2024 [facility] Tyrese Maddox [id number] Tyrese Maddox Notes Date Note Type Note Provider Name and Address Organization Details Recorded Time 05/16/2024 text/html HPI - Lumbar SpineReported bypatient.Location: left Quality:aching Severity:moderate Timing:morning Aggravating Factors:walking; lifting; carrying; twisting Alleviating Factors:rest Stefano Tran DC [address], [place], [address], [facility] 05/17/2024 09:27:04 05/22/2024 text/html HPI - Lumbar SpineReported bypatient.Location: left Quality:aching Severity:moderate Timing:morning Aggravating Factors:walking; lifting; carrying; twisting Alleviating Factors:rest Stefano Tran DC [address], [place], [address], [facility] 05/22/2024 16:49:40
--- OUTSIDE RECORDS SUMMARY | 2024-07-18 14:52 | XMS_ITS | Data Portability ---
Author Organization [facility], [facility] Address [address] [place] [address] Care Team Providers Care Sales Representative Rural Power Name Role Phone JOHN MIRANDA Primary Care Provider Assessment No assessment recorded. Plan of Treatment Reminders Order Date Submit Date Provider Last Modified By Organization Details Last Modified Time Details Appointments None recorded. Lab culture, urine 2021 [facility], [address], [place] [address], [place], [address], 09:15:28 urinalysis , dipstick 2021 [facility], [address], [address], [place], [address], 14:48:13 Referral None recorded. Procedures None recorded. Surgeries None recorded. Imaging None recorded. Medication Orders trospium 20 mg tablet 2021 [id number], [address] [place], [place], [id number], 15:16:57 Patient TargetsNo targets recorded. Patient Instructions Encounter Date Encounter Id Patient Instructions Last Modified By Organization Details Last Modified Time 11/17/2021 [id number] We have obtained a urinalysis and urine [...] morning. 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 [email or web address] Not available 11/17/2021 15:13:12 Reason for Referral None Reported. Results Created Date Observation Date Name Description Value Unit Range Abnormal Flag Note LastModifiedBy Organization Detail LastModifiedTime 11/18/1911/17/2021 UA DIP CS ADVAN TUS color -advantus YELLOW yellow Not Available [facility] [place] [facility] [address] [facility] [address], [place], [address], 11/17/2021 14:48:13 11/18/1911/17/2021 UA DIP CS ADVAN TUS appearance -advantus CLEAR clear Not Available [facility] [address] [facility] [address], [place], [address], 11/17/2021 14:48:13 11/18/1911/17/2021 UA DIP CS ADVAN TUS glucose -advantus NEGATI VE mg/dL negati ve Not Available [facility] [address] [facility] [address], [place], [address], 11/17/2021 14:48:13 11/18/1911/17/2021 UA DIP CS ADVAN TUS bilirubin -advantus NEGATI VE negati ve Not Available [facility] [address] [facility] [address], [place], [address], 11/17/2021 14:48:13 11/18/1911/17/2021 UA DIP CS ADVAN TUS ketones -advantus NEGATI VE mg/dL negati ve Not Available [facility] [address] [place] [address] [address], [place], [address], 11/17/2021 14:48:13 11/18/19 22 11/17/2021 UA DIP CS ADVAN TUS sp. gravity -advantus 1.025 1.010- 1.025 Not Available [facility] [address] [place] [address] [address], [place], [address], 11/17/2021 14:48:13 11/18/19 22 11/17/2021 UA DIP CS ADVAN TUS pH -advantus 5.5 5.0-8. 0 Not Available [facility] [address] [place] [address] [address], [place], [address], 11/17/2021 14:48:13 11/18/19 22 11/17/2021 UA DIP CS ADVAN TUS protein -advantus NEGATI VE mg/dL negati ve Not Available [facility] [address] [place] [address] [address], [place], [address], 11/17/2021 14:48:13 11/18/19 22 11/17/2021 UA DIP CS ADVAN TUS urobilinogen -advantus 0.2 normal Not Available [facility] [address] [place] [address] [address], [place], [address], 11/17/2021 14:48:13 11/18/19 22 11/17/2021 UA DIP CS ADVAN TUS nitrites -advantus NEGATI VE negati ve Not Available [facility] [address] [place] [address], [place], [address], 11/17/2021 14:48:13 11/18/19 22 11/17/2021 UA DIP CS ADVAN TUS blood -advantus NEGATI VE negati ve Not Available [facility] [address] [place] [address] [address], [place], [address], 11/17/2021 14:48:13 11/18/19 22 11/17/2021 UA DIP CS ADVAN TUS leukocytes -advantus NEGATI VE negati ve Not Available [facility] [address] [facility] [address], [place], [address], 11/17/2021 14:48:13 11/18/19 22 11/17/2021 UA DIP CS ADVAN TUS performed by ANALILIA Campbell Not Available [facility] [address] [facility] [address], [place], [address], 11/17/2021 14:48:13 11/18/19 22 11/17/2021 UA DIP [...] for provi adam revie w. Not Available [facility] [address] [facility] [address], [place], [address], 11/17/2021 14:48:13 11/18/19 22 11/17/2021 URINE CULTU RE final report MICROB IOLOGY RESULT S SOURC E Void KNOWN ALLER GIWM see chart TREAT MENT see chart MEDIA [...] for provi adam revie w. Not Available [facility] [address] [facility] [address], [place], [address], 11/19/2021 09:15:28 11/12/19 22 03/28/2021 imagi ng/di agnos tic resul t No observ ation record ed. Not Available 2021 17:19:55 Result Notes None recorded. Procedures Surgical History Date Name Laterality Status Provider Name and Address Organization Details Recorded Time CystoscopyMale completed Patrice Kumar [facility] 11/17/2021 17:38:48 022 Bladder Scan completed Patrice Kumar [facility] 11/17/2021 14:47:26 018 Colonoscopy completed Siri [place] [facility] 11/17/2021 14:31:07 esophagogastroscopy completed Mariella [place] [facility] 11/17/2021 14:30:49 Hernia Repair completed Siri [place] [facility] 11/17/2021 14:30:55 Imaging Results None recorded. Procedure Notes None [...] Updated DateTime 11/17/2021 177.8 cm 25.8 kg/m2 58146.[address] [facility] 11/17/2021 14:28:53 Social History Question Answer Notes LastModified by Shoutletizat ion Details LastModified Time Tobacco Smoking Status Never Smoker Siri kaur [facility] 11/17/2021 14:32:05 What Is Your Level Of Caffeine Consumption? None [email or web address] Information not available 11/17/2021 What Was The Date Of Your Most Recent Tobacco Screening? 11/17/2021 [email or web address] Information not available 11/17/2021 What Is Your Relationship Status? 3 Children [email or web address] Information not available 11/17/2021 Are You Sexually Active? No [email or web address] Information not available 11/17/2021 Has Tobacco Cessation Counseling Been Provided? No [email or web address] Information not available 11/17/2021 Sex: Unknown Functional Status Question Answer Note LastModified by Organizat ion Details LastModified Time Do you use any illicit or recreational drugs? No [email or web address] Information not available 11/17/2021 Do you or have you ever used any other forms of tobacco or nicotine? No [email or web address] Information not available 11/17/2021 What is your level of alcohol consumption? 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 Family History Relationship Description Onset Age of this Age Resolved Age Notes LastModified by Organization Details LastModified Time Father Family history of malignant neoplasm of prostate [email or web address] Not available 11/17 14:31:35 Unspecified Relation Family history of cancer of colon [email or web address] Not available 11/17 14:31:41 Unspecified Relation Family history of cardiac disorder [email or web address] Not available 11/17 14:31:54 Medical History Condition Response Heart Disease Y Past Encounters Encounter ID Performer Location Encounter Start Date Encounter Closed Date Diagnosis/Indication Diagnosis SNOMED-CT Code Diagnosis ICD10 Code Diagnosis Note [id number] Patrice Kumar MD [facility] [address] [place] [phone] 11/17/2021 14:17:31 11/17/2021 15:25:31 Increased frequency of urination 133127678 R35.0 Most likely due to overactive bladder. Overactive urinary bladder 396154479 N32.81 Causing symptoms of urinary frequency and nocturia Lower urin airam tract symptoms due to benign prostatic hypertrophy 7131741379 9101 N40.1 Status post greenlight laser vaporizati on with some improvemen t in symptoms. Nocturia d ue to benign prostatic hypertrophy 3781647897 101 R35.1 Likely due to overactive bladder [...] AFTER 19 (MEDICARE REPLACEMENT/ ADVANTAGE - HMO) [id number] Zaid Maddox [id number] Zaid Maddox Notes Date Note Type Note [...] at 2.01. He had laser TUR at [place] 2013. He has some urinary hesitancy with difficulty evacuating bladder especially at night. Has sandra push hard to get all the urine out. No gross hematuria or dysuria. Patrice Kumar [place], [place] - [facility] 11/17/2021 17:39:53
--- OUTSIDE RECORDS SUMMARY | 2024-07-18 14:52 | XMS_ITS | Data Portability ---
Author Organization [facility], [facility] Address [address] [place] [address] Care Team Providers Care Air Hose Coupler Name Role Phone JOHN MIRANDA Primary Care Provider [phone] Assessment No assessment recorded. Plan of Treatment Reminders Order Date Submit Date Provider Last Modified By Organization Details Last Modified Time Details Appointments None recorded. Lab culture, urine 2021 [facility], [address], [place] [address], [place], [address], 09:15:28 urinalysis , dipstick 2021 [facility], [address], [address], [place], [address], 14:48:13 Referral None recorded. Procedures None recorded. Surgeries None recorded. Imaging None recorded. Medication Orders trospium 20 mg tablet 2021 [id number], [address] [place], [place], [id number], 15:16:57 Patient TargetsNo targets recorded. Patient Instructions Encounter Date Encounter Id Patient Instructions Last Modified By Organization Details Last Modified Time 11/17/2021 [id number] We have obtained a urinalysis and urine [...] morning. 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 [email or web address] Not available 11/17/2021 15:13:12 Reason for Referral None Reported. Results Created Date Observation Date Name Description Value Unit Range Abnormal Flag Note LastModifiedBy Organization Detail LastModifiedTime 11/18/1911/17/2021 UA DIP CS ADVAN TUS color -advantus YELLOW yellow Not Available [facility] [address] [facility] [address], [place], [address], 11/17/2021 14:48:13 11/18/1911/17/2021 UA DIP CS ADVAN TUS appearance -advantus CLEAR clear Not Available [facility] [address] [facility] [address], [place], [address], 11/17/2021 14:48:13 11/18/1911/17/2021 UA DIP CS ADVAN TUS glucose -advantus NEGATI VE mg/dL negati ve Not Available [facility] [address] [facility] [address], [place], [address], 11/17/2021 14:48:13 11/18/1911/17/2021 UA DIP CS ADVAN TUS bilirubin -advantus NEGATI VE negati ve Not Available [facility] [address] [facility] [address], [place], [address], 11/17/2021 14:48:13 11/18/1911/17/2021 UA DIP CS ADVAN TUS ketones -advantus NEGATI VE mg/dL negati ve Not Available [facility] [address] [place] [address] [address], [place], [address], 11/17/2021 14:48:13 11/18/19 22 11/17/2021 UA DIP CS ADVAN TUS sp. gravity -advantus 1.025 1.010- 1.025 Not Available [facility] [address] [place] [address] [address], [place], [address], 11/17/2021 14:48:13 11/18/19 22 11/17/2021 UA DIP CS ADVAN TUS pH -advantus 5.5 5.0-8. 0 Not Available [facility] [address] [place] [address] [address], [place], [address], 11/17/2021 14:48:13 11/18/19 22 11/17/2021 UA DIP CS ADVAN TUS protein -advantus NEGATI VE mg/dL negati ve Not Available [facility] [address] [place] [address] [address], [place], [address], 11/17/2021 14:48:13 11/18/19 22 11/17/2021 UA DIP CS ADVAN TUS urobilinogen -advantus 0.2 normal Not Available [facility] [address] [place] [address] [address], [place], [address], 11/17/2021 14:48:13 11/18/19 22 11/17/2021 UA DIP CS ADVAN TUS nitrites -advantus NEGATI VE negati ve Not Available [facility] [address] [place] [address], [place], [address], 11/17/2021 14:48:13 11/18/19 22 11/17/2021 UA DIP CS ADVAN TUS blood -advantus NEGATI VE negati ve Not Available [facility] [address] [place] [address] [address], [place], [address], 11/17/2021 14:48:13 11/18/19 22 11/17/2021 UA DIP CS ADVAN TUS leukocytes -advantus NEGATI VE negati ve Not Available [facility] [address] [facility] [address], [place], [address], 11/17/2021 14:48:13 11/18/19 22 11/17/2021 UA DIP CS ADVAN TUS performed by ANALILIA Campbell Not Available [facility] [address] [facility] [address], [place], [address], 11/17/2021 14:48:13 11/18/19 22 11/17/2021 UA DIP [...] for provi adam revie w. Not Available [facility] [address] [facility] [address], [place], [address], 11/17/2021 14:48:13 11/18/19 22 11/17/2021 URINE CULTU [...] for provi adam revie w. Not Available [facility] [address] [facility] [address], [place], [address], 11/19/2021 09:15:28 11/12/19 22 03/28/2021 imagi ng/di agnos tic resul t No observ ation record ed. Not Available 2021 17:19:55 Result Notes None recorded. Procedures Surgical History Date Name Laterality Status Provider Name and Address Organization Details Recorded Time CystoscopyMale completed Patrice Kumar [facility] 11/17/2021 17:38:48 022 Bladder Scan completed Patrice Kumar [facility] 11/17/2021 14:47:26 018 Colonoscopy completed Siri [place] [facility] 11/17/2021 14:31:07 esophagogastroscopy completed Mariella [facility] 11/17/2021 14:30:49 Hernia Repair completed Siri [place] [facility] 11/17/2021 14:30:55 Imaging Results None recorded. [...] Updated DateTime 11/17/2021 177.8 cm 25.8 kg/m2 97977.63 g Siri [place] [facility] 11/17/2021 14:28:53 Social History Question Answer Notes LastModified by XDxizat ion Details LastModified Time Tobacco Smoking Status Never Smoker Siri kaur [facility] 11/17/2021 14:32:05 What Is Your Level Of Caffeine Consumption? None [email or web address] Information not available 11/17/2021 What Was The Date Of Your Most Recent Tobacco Screening? 11/17/2021 [email or web address] Information not available 11/17/2021 What Is Your Relationship Status? 3 Children [email or web address] Information not available 11/17/2021 Are You Sexually Active? No [email or web address] Information not available 11/17/2021 Has Tobacco Cessation Counseling Been Provided? No Information not available 11/17/2021 Sex: Unknown Functional Status Question Answer Note LastModified by Organizat ion Details LastModified Time Do you use any illicit or recreational drugs? No [email or web address] Information not available 11/17/2021 Do you or have you ever used any other forms of tobacco or nicotine? No [email or web address] Information not available 11/17/2021 What is your level of alcohol consumption? 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 Family History Relationship Description Onset Age of this Age Resolved Age Notes LastModified by Organization Details LastModified Time Father Family history of malignant neoplasm of prostate [email or web address] Not available 11/17 14:31:35 Unspecified Relation Family history of cancer of colon Not available 11/17 14:31:41 Unspecified Relation Family history of cardiac disorder Not available 11/17 14:31:54 Medical History Condition Response Heart Disease Y Past Encounters Encounter ID Performer Location Encounter Start Date Encounter Closed Date Diagnosis/Indication Diagnosis SNOMED-CT Code Diagnosis ICD10 Code Diagnosis Note [id number] Patrice Kumar MD [facility] [address] [place] [phone] 11/17/2021 14:17:31 11/17/2021 15:25:31 Increased frequency of urination 675735495 R35.0 Most likely due to overactive bladder. Overactive urinary bladder 070971113 N32.81 Causing symptoms of urinary frequency and nocturia Lower urin airam tract symptoms due to benign prostatic hypertrophy 0126769769 9101 N40.1 Status post greenlight laser vaporizati on with some improvemen t in symptoms. Nocturia d ue to benign prostatic hypertrophy 2132921618 101 R35.1 Likely due to overactive bladder [...] AFTER 19 (MEDICARE REPLACEMENT/ ADVANTAGE - HMO) [id number] Zaid Maddox [id number] Zaid Maddox Notes Date Note Type Note [...] at 2.01. He had laser TUR at [place] 2013. He has some urinary hesitancy with difficulty evacuating bladder especially at night. Has sandra push hard to get all the urine out. No gross hematuria or dysuria. Patrice Kumar [place], [place] - [facility] 11/17/2021 17:39:53
--- OUTSIDE RECORDS SUMMARY | 2024-07-18 14:52 | XMS_ITS ---
Author Organization [facility] ter Care Team Providers Care Leadership Development Manager Name Role Phone Janiya Yu Unavailable Unavailable Evette Willis Unavailable Unavailable Patrice Zamora Unavailable Unavailable Allergies and adverse reactions No Known Allergies Care Team Name Role Address Phone Organization Dates Patrice Zamora PCP [facility] [address], [address], [place], [place], [facility], [facility] (Office): [facility] 06/22/2024 - 06/29/2024 Janiya Yu [facility] 06/22/2024 - 06/29/2024 Evette Willis [facility] [address], [place], [address], [facility] (Office): : [facility] 06/22/2024 - 06/29/2024 Goals Section [...] 1 step (curb) 06/29/2024 Not assessed Cathy.[email or web address] [email or web address]. org 12 steps 06/29/2024 Not assessed Cathy.[email or web address]@ [email or web address]. org 4 steps 06/29/2024 Not assessed Cathy.Ammon@ [email or web address]. org Ambulation 06/29/2024 Supervision Cathy.[email or web address]@ [email or web address]. org Ambulation 06/29/2024 Independent Cathy.Ammon@ [facility]. org Bathing 06/28/2024 Not assessed James [email or web address] Car transfer 06/29/2024 Not assessed Cathy.mAmon@ [email or web address]. org Chair/lrw-ub-znmjh transfer 06/29/2024 Independent Cathy.[email or web address]. org Does the resident use a wheelchair and/or scooter? 06/29/2024 Yes (qualifier value) Cathy.Stefano [email or web address] Dressing 06/29/2024 Independent Cathy.Ammon@ [email or web address]. org Eating 06/29/2024 Setup or clean-u p assistance [email or web address] Feeding or Eating 06/29/2024 Not assessed Cathy.Tej [email or web address]. org Indicate the type of wheelchair or scooter used 06/29/2024 Independent Cathy.Tamika [email or web address]. org Indicate the type of wheelchair or scooter used 06/29/2024 Manual wheelchair (physical object) [email or web address]. [email or web address] Lower body dressing 06/29/2024 Independent Cathy. [email or web address]@[email or web address]. [facility] Lying to sitting on side of bed 06/29/2024 Independent Cathy.[email or web address]. [facility] Oral hygiene 06/29/2024 Independent Cathy.Ammon@ [facility]. [facility] Personal hygiene 06/29/2024 Independent Cathy.Stefano [email or web address]. [facility] Picking up object 06/29/2024 Independent Cathy.Tej [email or web address]. [facility] Putting on/taking off footwear 06/29/2024 Independent Cathy.[email or web address]. [facility] Roll left and right 06/29/2024 Independent Cathy. [email or web address]@[email or web address]. [facility] Shower/bathe self 06/29/2024 Supervision or touching assistance [email or web address]. org Sit to lying 06/29/2024 Independent Cathy.Ammon@ [facility]. [facility] Sit to stand 06/29/2024 Independent Cathy.Ammon@ [facility]. [facility] Toilet transfer 06/29/2024 Independent Cathy.Peter [email or web address]. [facility] Toileting 06/29/2024 Independent Cathy.Ammon@ [facility]. [facility] Toileting hygiene 06/29/2024 Independent Cathy.Tej [email or web address]. [facility] Transferring 06/29/2024 Independent Cathy.Ammon@ [facility]. org Upper body dressing 06/29/2024 Independent Cathy. [email or web address]@[email or web address]. org Walk 10 feet 06/29/2024 Independent Cathy.Ammon@ [facility]. org Walk 150 feet 06/29/2024 Supervision or t ouching assistance [email or web address]. org Walk 50 feet 06/29/2024 Supervision or t ouching assistance [email or web address]. org Walking 10 feet on uneven surfaces 06/29/2024 Supervision or touching assistance [email or web address]. org Wheel 150 feet 06/29/2024 Supervision or t ouching assistance [email or web address]. org Wheel 50 feet with two turns 06/29/2024 Setup or clean-up assistance [email or web address] Immunizations Immunization Status Vaccine Details Vaccine [...] completed Pneumococcal conjugate vaccine 20-valent (PCV20), polysaccharide [id number] conjugate, adjuvant, preservative free 216 CVX created [...] HYDROmorphone HCl Oral Tablet 4 MG aborted 312952 RXNORM 1 tablet Oral as needed PRN Give 1 tablet by mouth every 4 hours as needed for Pain relate d to PAIN IN RIGHT KNEE (M25.5 61) 06/28 Sennosides-Do cusate Sodium Oral Tablet 8.6-50 MG aborted 109625 RXNORM 1 tablet Oral two times a day Routine Give 1 tablet by mouth two times a day relate d to DRUG INDUCE D CONSTI PATION (K59.0 3) 06/29 Eliquis Oral Tablet 5 MG aborted 871241 7 RXNORM 1 tablet Oral two times a day Routine Give 1 tablet by mouth two times a day relate d to UNSPEC IFIED ATRIAL FIBRIL LATION (I48.9 1) 06/29 Cholecalcifer ol Oral Tablet 25 MCG (1000 UT) aborted 993213 RXNORM 1 tablet Oral one time a day Routine Give 1 tablet by mouth one time a day for Supple ment 06/29 Cyclobenzapri ne HCl Oral Tablet 5 MG aborted 779993 RXNORM 1 tablet Oral as needed PRN Give 1 tablet by mouth as needed for Muscle Spasm relate d to OTHER MUSCLE SPASM (M62.8 38) 5mg three times a day as needed 06/26 Lidocaine External Patch 4 % aborted 164453 4 RXNORM n/a n/a Topical as needed [...] Oral Tablet Extended Release 650 MG aborted 781911 9 RXNORM 2 tablet Oral three times a day Routine Give 2 tablet by mouth three times a day relate d to OTHER CHRONI C PAIN (G89.2 9) 06/29 Verapamil HCl ER Oral Tablet Extended Release 180 MG aborted 083615 RXNORM 1 tablet Oral one time a day Routine Give 1 tablet by mouth one time a day relate d to UNSPEC IFIED ATRIAL FIBRIL LATION (I48.9 1) 06/29 Lidocaine External Patch 4 % aborted 334545 4 RXNORM n/a n/a Topical every morning and at bedtime Routine Apply to Inside of R Knee topica lly every mornin g and at bedtim e relate d to PAIN IN RIGHT KNEE (M25.5 61) ON at HS, OFF in AM 06/29 Tums Oral Tablet Chewable 500 MG aborted 476086 RXNORM 2 tablet Oral as needed PRN Give 2 tablet by mouth as needed for indige stion, heart burn relate d to ESOPHA GEAL OBSTRU CTION (K22.2 ) TID PRN 06/29 Problems Problem # Description Date of onset Resolved Date Code CodeSystem Concern Status 1 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 06/23/[address] active 2 DRUG INDUCED CONSTIPATION 06/23/[address] active 3 ENCOUNTER FOR OTHER ORTHOPEDIC AFTERCARE 06/23/[address] active 4 ESOPHAGEAL OBSTRUCTION 06/23/[address] active 5 HISTORY OF FALLING 06/23/[address] active 6 MIXED CONDUCTIVE AND SENSORINEURAL HEARING LOSS, UNILATERAL, RIGHT EAR WITH RESTRICTED HEARING ON THE CONTRALATERAL SIDE 06/23/[address] active 7 OTHER ACUTE POSTPROCEDURAL PAIN 06/23/[address] active 8 OTHER CHRONIC PAIN 06/23/[address] active 9 OTHER MUSCLE SPASM 06/23/[address] active 10 OVERACTIVE BLADDER 06/23/[address] active 11 OVERWEIGHT 06/23/[address] active 12 PAIN IN RIGHT KNEE 06/23/[address] active 13 PRESENCE OF RIGHT ARTIFICIAL KNEE JOINT 06/23/[address] active 14 PRIMARY INSOMNIA 06/23/[address] active 15 TINEA UNGUIUM 06/23/[address] active 16 UNILATERAL PRIMARY OSTEOARTHRITIS OF FIRST CARPOMETACARPAL JOINT, LEFT HAND 06/23/[address] active 17 UNSPECIFIED ATRIAL FIBRILLATION 06/23/[address] active 18 UNSPECIFIED CHOLESTEATOMA, UNSPECIFIED EAR 06/23/[address] active Reason for Referral No Reasons for Referral Entered Social History Social History Observation Description Start Date End Date Code Code System Current Smoking Status Tobacco smoking consumption unknown 425979025 SNOMED CT Sex Assigned At Male 1945 95421-5 [facility] Gender Identity Male [id number] [address] Vital Signs Code Code System Vitals Name Values and Units Timing Information 82399-9 [facility] Pain Level Value=2.0 06/29/2024 8310-5 [facility] Body Temperature Value=97.7 Units= F 06/29/2024 9279-1 [facility] Respiratory Rate Value=18.0 Units=/m in 06/29/2024 8462-4 [facility] Blood Pressure-Diastolic Value=64 Un its=mmHg 06/29/2024 8480-6 [facility] Blood Pressure-Systolic Yvnch=815 Un its=mmHg 06/29/2024 8867-4 [facility] Heart rate Value=74.0 Units=/min 73765-6 [facility] Weight Pjnmu=533.0 Units=Lbs 41212-4 [facility] O2 % BldC Oximetry Fmtde=600.0 Units =% 06/28/2024 8302-2 [facility] Height Value=70.0 Units=Inches 06/24/2024
--- OUTSIDE RECORDS SUMMARY | 2024-07-18 14:53 | XMS_ITS | Clinical Summary ---
Author Organization [facility] Address [address] [place] [address] Care Team Providers Care Predatory Game Hunter Name Role Phone Unavailable Primary Care Provider Unavailabl e Source Comments Patient records contain information from all sites at [facility]. For routine questions regarding patient records, call [phone] during business hours, M-F 8:00 AM - 5:00 PM Central Time. Record requests for emergency care only can be directed to [phone] at any time.[facility] Allergies No known active allergies Medications verapamil [...] (07/07/2017): Added automatically from request for surgery [id number] Immunizations Immunization Administration Dates Next Due SARS-COV-2 [...] than three times a week 09/12/2018 Attends [employer] More than 4 times per year [...] your living situation today? I have a [facility] place to live 09/05/2022 Education Answer Date Recorded What is the highest level of school you have completed or the highest degree you have received? Doctorate 09/12/2018 Sex and Gender Information Value Date Recorded Sex Assigned at Male 07/02/2017 7:58 PM CDT Legal Sex Male 11:58 PM NON DESTRUCTIVE TESTING SCIENTIST Gender Identity Male 07/02/2017 7:58 PM CDT Sexual Orientation Straight 07/02/2017 7: 58 PM CDT Last Filed Vital Signs Vital Sign Reading Time Taken Comments Blood Pressure 102/72 01/03/2024 3:15 PM NON DESTRUCTIVE TESTING SCIENTIST Pulse 98 01/03/2024 3:15 PM NON DESTRUCTIVE TESTING SCIENTIST Temperature 36.6 C (97.9 F) 01/03/2024 3:15 PM NON DESTRUCTIVE TESTING SCIENTIST Respiratory Rate 22 01/03/2024 3:15 PM NON DESTRUCTIVE TESTING SCIENTIST Oxygen Saturation 94% 01/03/2024 3:15 PM NON DESTRUCTIVE TESTING SCIENTIST Inhaled Oxygen Concentration - - Weight 88.1 kg (194 lb 3.6 oz) 01/03/2024 1:11 P M NON DESTRUCTIVE TESTING SCIENTIST Height 177 cm (5' 9.69) 11/02/2023 1:43 [...] this topic Medical Devices Implanted Type Area Sewage Screen Operator Device Identifier Shelf Expiration Date Model / Serial / Lot Clp Rsp [facility] Endo 235 - [id number] Implanted:Qty: 1 on 01/03/2024 by Neil Clarke M.D. at [facility] [employer] e.g. pins/screws /rods [employer] [id number] 04/07/2026 [id number] / / [id number] [employer]eting [place]. Non-Rein. .020 - [id number] Implanted:Qty: 1 on 12/27/1997 Mesh or Patch [place] Description:Device Manufactu rer - [email or web address]. Device Status Text - [id number]. Procedures Procedure Name Priority Date/Time Associated Diagnosis Comments COLONOSCOPY Routine 01/03/2024 1:40 PM NON DESTRUCTIVE TESTING SCIENTIST Polyp Colon Adenomatous Personal History from Last 3 Months or Most Recently Relevant to Health Maintenance Results * Colonoscopy (01/03/2024 1:40 PM NON DESTRUCTIVE TESTING SCIENTIST) 01/03/2024 1:40 PM NON DESTRUCTIVE TESTING SCIENTIST Impressions [facility] - 01/03/2024 3:21 PM NON DESTRUCTIVE TESTING SCIENTIST Post-op Diagnoses: - Two 4 to 5 [...] retrieved. Clip (MR conditional) was placed. 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 Narrative [facility] - 01/03/2024 3:21 PM NON DESTRUCTIVE TESTING SCIENTIST Gonda 2 GI Patient Name: Zaid Maddox [...] clip was successfully placed (MR conditional). 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 There was no bleeding at the end [...] bowel preparation was evaluated using the BBPS ([place] Bowel Preparation Scale) with scores of: Right [...] M.D. GI PROCEDURE ORDERABLES Fin al [facility] from Last 3 Months or Most Recently Relevant to Health Maintenance Insurance [facility]
--- OUTSIDE RECORDS SUMMARY | 2024-07-18 14:53 | XMS_ITS | Clinical Summary ---
Author Organization [facility] Address [address] [place] [id number] Care Team Providers Care Display Department Manager Name Role Phone Gilberto Gutierrez MD Unavailable Zaid Gill MD Primary Care Provider Allergies Active Allergy Reactions Criticality Noted Date Comments Homeopathic Products 10/06/2007 Runny nose and sneezing Medications vit-min eye [id number] mg capsule Take 1 Capsule by mouth [...] a meal. 90 Tablet 3 4 Active celecoxib 200 mg capsule Take 200 mg by mouth. 5 Active hydrOXYzine pamoate 25 mg capsule Take 25 mg by mouth. 5 Active oxyCODONE 5 mg immediate release tablet Take 5 mg by mouth every 6 hours if needed for Pain. 5 Active cyclobenzaprine 5 mg tabletIndications :Spasm One oral at bedtime as needed. 10 Tablet Active Active Problems Problem Noted Date Diagnosed Date Chronic anticoagulation 07/06/2024 Status post right knee replacement 07/03/2024 Bilateral chronic knee pain 03/22/2024 Overview (03/30/2024): Previous injections done outside of [facility] for knee pain March 2024: Right knee [...] gastropathy, dilation performed with 51 and 54 Romanian savory dilator, begin omeprazole Onychomycosis 01/25/2018 Risk for falls 01/30/2016 Atrial fibrillation 12/18/2014 Cholesteatoma, unspecified 10/21/2007 Overview (10/21/2007): 1998 done at [place] Resolved Problems Problem Noted Date Diagnosed Date [...] Encounters Date Type Department Care Team Description 07/18/2024 Nurse Triage [facility] [address] [place] [address] Zaid Gill MD Call Request (Possible UTI. Constipation post knee surgery. Pressure in bladder. Urinary frequency, urgency and pressure. Be seen today) 07/12/2024 1:40 PM CDT Phone Office Visit [facility] [address] [place] [address] Zaid Gill MD Phone Visit (No vitals taken); Sleep Problem (Difficulty sleeping, started 3 nights ago, sleeping in recliner since surgery about 3 weeks ago, developing back pain) 07/12/2024 Travel 07/12/2024 Telephone [facility] [address] [place] [address] Zaid Gill MD Questions (Sleep after surgery ) 07/06/2024 11:25 AM CDT Phone Office Visit [facility] [address] [place] [address] Zaid Gill MD Phone Visit (No vitals taken); Medication Management (Discuss pain medication - ibuprofen) 07/06/2024 Travel 07/06/2024 Telephone [facility] [address] [place] [address] Zaid Gill MD Medication Management (Pain medications) 07/03/2024 10:05 AM CDT Office Visit [address] [address] Zaid Gill MD Hospital F/U ([facility], 06/19/2024 - 06/22/2024, knee surgery/[facility], 06/22/2024 - 06/29/2024); ER Follow up ([facility], 07/02/2024, post operative pain) 07/03/2024 Orders Only [facility] Scanner 1 scan: (1-Ord) INCOMING RECORDS-US, [facility], 07/03/2024 07/03/2024 Travel 07/02/2024 Orders Only [facility] Scanner 1 scan: (1-Ord) [facility], 07/02/2024 06/20/2024 Orders Only [facility] Scanner 1 scan: (1-Ord) [facility], KNEE RT 2V, 06/20/2024 06/19/2024 Orders Only [facility] Scanner 1 scan: (1-Ord) [facility], 06/19/2024 06/19/2024 Orders Only [facility] Scanner 1 scan: (1-Ord) [facility], KNEE RT 2V, 06/19/2024 06/15/2024 Orders Only [facility] Scanner 1 scan: (1-Ord) [facility], XR LUMBAR SPINE 2-3V, 06/15/2024 06/08/2024 11:30 AM CDT Office Visit [address] [address] Nathanael Isbell MD Recheck ( ear cleaning) 06/08/2024 Orders Only [address] [address] Jossie Jacome PA <No scans attached> 06/08/2024 Travel 05/22/2024 1:15 PM CDT Office Visit [facility] [address] [place] [address] Zaid Gill MD Preoperative Exam (DOS: 06/19/2024, right knee replacement, Dr. Centeno, [facility]) 05/22/2024 Travel 05/20/2024 Travel 04/17/2024 Medical Messaging [facility] [address] [place] [address] Fernando Romero MD right knee pain from [...] or isolated from those around you? 0 07/03/2024 Financial Resource Strain Answer Date R ecorded Difficulty of Paying Living Expenses 3 07/03/2024 Difficulty of Paying Living Expenses Not on file 07/03/2024 Food Insecurity Answer Date Recorded Do you worry your food will run out before you are able to buy more? 1 07/03/2024 Transportation Needs Answer Date Record ed Does lack of transportation keep you from medica l appointments? 1 07/03/2024 Does lack of transportation keep you from work, meetings or getting things that you need? 1 07/03/2024 Housing Stability Answer Date Recorded What is your housing situation today? 1 07/03/2024 Utilities Answer Date Recorded Do you have trouble paying f or utilities (for example, heat, electricity, water, phone)? 1 07/03/2024 Sex and Gender Information Value Date Recorded Sex Assigned at Not on file Legal Sex Male 5:24 AM [employer] Gender Identity Not on file Sexual Orientation Not on file Obstetrics History Last Filed Vital Signs Vital Sign Reading Time Taken Comments Blood Pressure 103/67 07/03/2024 10:12 AM CDT Pulse 85 07/03/2024 10:26 AM CDT Temperature 36.6 C (97.8 F) 11/08/2023 1:29 PM CDT Respiratory Rate 18 11/08/2023 1:29 PM CDT Oxygen Saturation 95% 07/03/2024 10:12 AM CDT Inhaled Oxygen Concentration - - Weight 92.7 kg (204 lb 6.4 oz) 07/03/2024 10:12 AM CDT Height 176.3 cm (5' 9.41) 05/22/2024 1:19 PM CD T Body Mass Index 29.83 05/22/2024 1:19 PM CDT Plan of Treatment Upcoming Encounters Date Type Department Care Team (Late st Contact Info) Description 12/07/2024 2:00 PM CDT Office Visit [facility] [address] [place] [address] Nathanael Isbell [facility] [address] [facility] [address] [place] [address] Health Maintenance Due Date Last Done Comments Depression screening for age 12+ 12/21/2024 12/22/2023, 05/28/2023, 12/16/2022, Additional history exists Medicare Wellness for age 65+ 12/22/2024 12/22/2023, 12/16/2022, 12/15/2021, Additional history exists BMI (ht and wt on same day) for age 18+ 05/22/2025 05/22/2024, 12/22/2023, 12/16/2022, Additional history exists Tetanus booster 09/15/2026 09/15/2016, 09/16, 07/29/1995 Tdap Completed 10/08/2006 Hepatitis C screening for age 18-79 Completed 08/29/2015 Zoster (shingles) series for age 50+ Completed 07/18/2020, 03/11/2020, 09/05/2010 RSV vaccine for adults or Completed 11/19/2022 Pneumococcal series for age 50+ Completed 12/16/2022, 06/01/2014, 01/01/2012, Additional history exists Influenza Vaccine Completed 12/22/2023, , 11/21/2019, Additional history exists COVID-19 vaccine series Completed 05/23/19, 11/13/2023, 12/03/2022, Additional history exists Hepatitis B series for 19+ Aged Out N o longer eligible based on patient's age to complete this topic Procedures Procedure Name Priority Date/Time Associated Diagnosis Comments SCAN CORRESP-IMAGING 07/03/2024 12:00 AM CDT SCAN-ULTRASOUND REPORT 07/02/2024 12:00 AM CDT SCAN-RADIOLOGY REPORT 06/20/2024 12:00 AM CDT SCAN-ULTRASOUND REPORT 06/19/2024 12:00 AM CDT SCAN-RADIOLOGY REPORT 06/19/2024 12:00 AM CDT SCAN-RADIOLOGY REPORT 06/15/2024 12:00 AM CDT EKG 12 LEAD Routine 05/24/2024 2:57 PM CDT Screening for heart disease CT READING EKG - NO CHARGE, COMP ONLY Routine 05/24/2024 2:56 PM CDT Screening for heart disease HEMOGLOBIN Routine 05/22/2024 1:55 PM CDT Preop examination BASIC METABOLIC PANEL Routine 05/22/2024 1:55 PM CDT Preop examination ANTI HCV Routine 08/29/2015 11:08 AM CDT Need for hepatitis C screening test from Last 3 Months or Most Recently Relevant to Health Maintenance Results * SCAN CORRESP-IMAGING (07/03/2024 12:00 AM CDT) Anatomical Region Laterality Modality Other us Scanner OTHER Final Result * SCAN-ULTRASOUND REPORT (07/02/2024 12:00 AM CDT) Only the most recent of2 resultswithin the time period is included. Anatomical Region Laterality Modality Other us Scanner OTHER Final Result * SCAN-RADIOLOGY REPORT (06/20/2024 12:00 AM CDT) Only the most recent of3 resultswithin the time period is included. Anatomical Region Laterality Modality Other us Scanner OTHER Final Result * EKG 12 LEAD (05/24/2024 2:57 PM CDT) us Zaid Gill MD EKG ORD Final Result * CT READING EKG - NO CHARGE, COMP ONLY (05/24/2024 2:56 PM CDT) us Zaid Gill MD PB - PROVIDER READINGS Final Result * HEMOGLOBIN (05/22/2024 1:55 PM CDT) HEMOGLOBIN 14.6 13.2 - 17.1 g/dL [facility] Blood BLOOD SPECIMEN / Unknown 05/22/2024 1:55 PM CDT 05/22/2024 1:56 PM CDT us Zaid Gill MD HEMATOLOGY Final Result [facility] [address] [place] [address], [facility] [address] [place] [address] * (ABNORMAL) BASIC METABOLIC PANEL (05/22/2024 1:55 PM CDT) GLUCOSE 60(L) 65 - 99 mg/dL [facility] [place] Comment: Fasting reference interval UREA NITROGEN (BUN) 25 7 - 25 mg/dL [facility] CREATININE 1.10 0.70 - 1.28 mg/dL [facility] EGFR 69 > OR = 60 mL/min/1. 73m2 [facility] BUN/CREATININE RATIO SEE NOTE: (calc) [facility] Comment: Not Reported: BUN and Creatinine are within reference range. SODIUM 140 135 - 146 mmol/L [facility] POTASSIUM 4.6 3.5 - 5.3 mmol/L [facility] CHLORIDE 102 98 - 110 [...] us Zaid Gill MD CHEMISTRY Final Result Performing Organization Address [facility]/ZIP Co de Phone Number [employer] [facility] [address] [place] [address], [facility] [address] [place] [address] * ANTI HCV [51917.2] (08/29/2015 11:08 AM CDT) HEPATITIS C ANTIBODY Non-Reacti ve Non-Reacti ve 08/29/2015 6:33 PM CDT [facility] Blood BLOOD SPECIMEN / Unknown Venipuncture / Unknown 08/29/2015 11:08 AM CDT 08/29/2015 11:08 AM CDT Narrative [facility] - 08/29/2015 6:33 PM CDT Antibodies to HCV not detected; does not exclude the possibility of exposure to HCV. us Zaid Gill MD SEND OUTS Final Result [facility] [address] [place] [address], [place] from Last 3 Months or Most Recently Relevant to Health Maintenance Insurance MEDICARE PART B HB ONLY [employer] MEDICARE ADVANTAGE MR 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
[2024-07-18 14:56] VITALS: BP 117/70; PULSE 92; RESP 18; TEMP 36.3; O2SAT 99; BMI 29.0
--- NOTE | 2024-07-18 15:01 | ED.GENADULT ---
HPI - General Adult General Chief complaint: Urogenital Problems, Male Stated complaint: Bladder Scan Time Seen by Provider: 07/18/24 14:52 History of Present Illness HPI narrative: pt sent from urgent care with difficulty urinating, did ua there and pt said no infection. told to come to ER for a bladder scan. pt has also been constipated. 79-year-old man presenting to the emergency department after initially presenting to urgent care with concern of decreased urine output. Had arthroplasty of the right knee on June 19. Up until a week ago was taking regular opiates. Yesterday started to note he was probably constipated with very small formed hard stool produced. And now decreased urine out. He has been taking senna as well. Admits he does not drink as much water as he ought and diet has not been the greatest either. Has not had any fever. Is not having significant pain in his abdomen. Abdominal x-ray at Urgent Care was notable for stool retention as reported to me. There is also concern noted of diminished to absent bowel sounds. He has not been vomiting. Related Data Home Medications ?Medication ?Instructions ?Recorded ?Confirmed apixaban 5 mg tablet (Eliquis) 5 mg PO BID 12/11/22 07/18/24 verapamil 180 mg tablet,extended 180 mg PO DAILY 12/11/22 07/18/24 release cholecalciferol (vitamin D3) 25 1,000 unit PO DAILY 06/15/24 07/18/24 mcg (1,000 unit) capsule Previous Rx's ?Medication ?Instructions ?Recorded acetaminophen 650 mg 1,300 mg (2 x 650 mg) PO Q8H #90 06/22/24 tablet,extended release (Tylenol tabs Arthritis Pain) cyclobenzaprine 5 mg tablet 5 mg PO TID PRN muscle spasm #30 06/22/24 tabs lidocaine 4 % topical patch 1 patch topical DAILY PRN pain #10 06/22/24 ea polyethylene glycol 3350 17 17 g PO DAILY #238 grams 06/22/24 gram/dose oral powder (Miralax) sennosides 8.6 mg-docusate sodium 1 tab-cap PO BID #30 tabs 06/22/24 50 mg tablet (Senna-S) celecoxib 200 mg capsule (Celebrex) 200 mg PO DAILY #10 caps 07/02/24 hydroxyzine pamoate 25 mg capsule 25 mg PO BID PRN #30 caps 07/02/24 Allergies Allergy/AdvReac Type Severity Reaction Status Date / Time No Known Drug Allergies Allergy Verified 07/18/24 13:35 Review of Systems Status of ROS: Reports: 6 or more systems reviewed and unremarkable except as noted in History and below [facility] Medical History Osteoarthritis of right knee ?M17.11 - Unilateral primary osteoarthritis, right knee (ICD-10) Left hydrocele ?N43.3 - Hydrocele, unspecified (ICD-10) Risk for falls ?Z91.81 - History of falling (ICD-10) BPH without urinary obstruction ?N40.0 - Benign prostatic hyperplasia without lower urinary tract symptoms (ICD-10) Overactive bladder ?N32.81 - Overactive bladder (ICD-10) Insomnia ?G47.00 - Insomnia, unspecified (ICD-10) Arthritis of carpometacarpal (CMC) joint of left thumb ?M18.12 - Unilateral primary osteoarthritis of first carpometacarpal joint, left hand (ICD-10) Stricture and stenosis of esophagus ?K22.2 - Esophageal obstruction (ICD-10) Mixed conductive and sensorineural hearing loss of right ear with restricted hearing of left ear ?H90.A31 - Mixed conductive and sensorineural hearing loss, unilateral, right ear with restricted hearing on the contralateral side (ICD-10) Cholesteatoma ?H71.90 - Unspecified cholesteatoma, unspecified ear (ICD-10) Onychomycosis ?B35.1 - Tinea unguium (ICD-10) Afib ?I48.91 - Unspecified atrial fibrillation (ICD-10) Surgical History History of arthroplasty of right knee (06/19/24) ?Z96.651 - Presence of right artificial knee joint (ICD-10) History of bilateral cataract extraction (07/2020) ?Z98.41 - Cataract extraction status, right eye (ICD-10) ?Z98.42 - Cataract extraction status, left eye (ICD-10) History of esophagogastroduodenoscopy (EGD) (10/2019) ?Z98.890 - Other specified postprocedural states (ICD-10) H/O umbilical hernia repair (08/11/01) ?Z98.890 - Other specified postprocedural states (ICD-10) ?Z87.19 - Personal history of other diseases of the digestive system (ICD-10) Cholesteatoma of right ear (1997) ?H71.91 - Unspecified cholesteatoma, right ear (ICD-10) History of tonsillectomy (1951) ?Z90.89 - Acquired absence of other organs (ICD-10) History of transurethral resection of prostate (11/2013) ?Z98.890 - Other specified postprocedural states (ICD-10) ?Z90.79 - Acquired absence of other genital organ(s) (ICD-10) Social History What is your current living situation?: I presently have a place to live In the past 12 months, utilities in danger of being shut off: no In past 12 months, lack of transportation kept you from medical appts, meetings, work, or getting things needed for daily living: no In the past 12 mos, have been you worried that your food would run out before you had money to buy more?: never true In the past 12 mos, the food you bought just didn't last and you didn't have money to buy more?: never true Smoking Status: Never smoker Do you use any of these nicotine containing products: None Second hand tobacco smoke exposure: No How often do you have a drink containing alcohol: never AUDIT-C Alcohol total score: 0 Non-prescribed substance use: denies use Caffeine: Yes How often does anyone, including family, friends and others, physically hurt you: never How often does anyone, including family, friends and others, insult or talk down to you: never How often does anyone, including family, friends and others, threaten you with harm: never How often does anyone, including family, friends and others, scream or curse at you: never service: No Exam Narrative: Exam Narrative: Pleasant. NAD. Breathing easily. Heart in regular rate and rhythm. Distant. Abdomen is soft. Perhaps some fullness in the suprapubic area but nontender here. Lower extremities with some light compression sleeves. 1+ pitting edema right greater than left. Const: Vital Signs, click to edit/add: Vital Signs - 24 hr 07/18/24 14:56 Temperature 97.3 F L Pulse Rate [Pulse Oximeter] 92 Respiratory Rate 18 Blood Pressure [Ri ght Upper Arm] 117/70 Pulse Oximetry 99 Oxygen Delivery Me thod Room Air Documenting provider has reviewed patient's vital signs: yes Course Vital Signs Vital signs: Initial Vital Signs Temperature 97.3 F L 07/18/24 14:56 Temperature Source Temporal Artery Scan 07/18/24 14:56 Pulse Rate 92 07/18/24 14:56 Respiratory Rate 18 07/18/24 14:56 Blood Pressure 117/70 07/18/24 14:56 Blood Pressure Mean 85 07/18/24 14:56 Blood Pressure Position Sitting 07/18/24 14:56 Pulse Oximetry 99 07/18/24 14:56 Oxygen Delivery Method Room Air 07/18/24 14:56 Vital Signs Temperature 97.3 F L 07/18/24 14:56 Pulse Rate 92 07/18/24 14:56 Respiratory Rate 18 07/18/24 14:56 Blood Pressure 117/70 07/18/24 14:56 Pulse Oximetry 99 07/18/24 14:56 Oxygen Delivery Method Room Air 07/18/24 14:56 Temperature 97.3 F L 07/18/24 14:56 Pulse Rate 92 07/18/24 14:56 Respiratory Rate 18 07/18/24 14:56 Blood Pressure 117/70 07/18/24 14:56 Pulse Oximetry 99 07/18/24 14:56 Oxygen Delivery Method Room Air 07/18/24 14:56 Medical Decision Making MDM Narrative Medical decision making narrative: Since reporting decreased urine out I think it would be helpful to obtain a bladder scan. If this does not show much a would consider catheterization as follow-up. Clearly if not producing much urine this is a bigger workup. Will discuss also ways to help bowel movements. Bladder scan for 14 mL. I suspect this is inaccurate. He did end up going to the bathroom here in reports moderate amount of urine out. Clear yellow urine. I had anticipated laboratory workup to assess renal function. Not convinced that is not making urine though given his description. Perhaps need to focus relief of constipation. Discussed options for this and mechanism of action. Ultimately Mr. Maddox declined further evaluation today. He says this has happened to me before. He will follow up if he needs to. Focus on hydration. If experiencing hard stool, would consider placing a suppository overnight or possibly an enema and repeating in an hour if no good result. Does sound as if it might be good to take medication from above as well. You can certainly start using MiraLax equivalent diluting in at least 8 oz of liquid per dose. I would take 1-3 doses a day and adjust to stool consistency. Maybe take that for a couple of weeks. Bowel cleanout can further be accomplished by taking a bottle of magnesium citrate and repeating the next day. In the meantime you can continue with the current bowel aid tabs you have been taking for another week or so. Medical Records Medical records reviewed: Yes I reviewed the patient's medical records Discharge Plan Discharge Clinical Impression: Constipation, Decreased urine output Patient Disposition: Home w/ Parent or Adult Condition: Stable Additional Instructions: Focus on hydration. If experiencing hard stool, would consider placing a suppository overnight or possibly an enema and repeating in an hour if no good result. Does sound as if it might be good to take medication from above as well. You can certainly start using MiraLax equivalent diluting in at least 8 oz of liquid per dose. I would take 1-3 doses a day and adjust to stool consistency. Maybe take that for a couple of weeks. Bowel cleanout can further be accomplished by taking a bottle of magnesium citrate and repeating the next day. In the meantime you can continue with the current bowel aid tabs you have been taking for another week or so. Prescriptions: No Action verapamil 180 mg tablet extended release 180 mg PO DAILY Eliquis 5 mg tablet 5 mg PO BID cholecalciferol (vitamin D3) 25 mcg (1,000 unit) capsule 1,000 unit PO DAILY sennosides-docusate sodium [Senna-S] 8.6-50 mg tablet 1 tab-cap PO BID Qty: 30 0RF acetaminophen [Tylenol Arthritis Pain] 650 mg tablet extended release 1,300 mg PO Q8H Qty: 90 0RF polyethylene glycol 3350 [Miralax] 17 gram/dose powder 17 g PO DAILY Qty: 238 0RF cyclobenzaprine 5 mg tablet 5 mg PO TID PRN (Reason: muscle spasm) Qty: 30 0RF lidocaine 4 % adhesive patch,medicated 1 patch topical DAILY PRN (Reason: pain) Qty: 10 0RF Rx Instructions: apply to the inside of the right knee where it is the most painful celecoxib [Celebrex] 200 mg capsule 200 mg PO DAILY Qty: 10 1RF hydroxyzine pamoate 25 mg capsule 25 mg PO BID PRNQty: 30 1RF Rx Instructions: Booster medicine for oxycodone if pain is severe Follow Up/Referrals: Zaid Gill MD [Primary Care Provider, Family Practice] Stand Alone Forms: [employer] Info Instructions
== END 2024-07-18 16:09 | disposition home or self-care (01) ==
PROVIDERS: Emergency Provider Family Medicine; PCP Family Medicine
DX: K59.00 Constipation, unspecified (principal); R33.9 Retention of urine, unspecified
CPT/HCPCS: 51798; 80048; 85025; 86140; 99283; 99284

== ENCOUNTER 2024-08-18 18:55 | Emergency (ER) | payer MEDICARE, SELFPAY ==
--- OUTSIDE RECORDS SUMMARY | 2024-08-18 18:57 | XMS_ITS | Continuity of Care Document ---
Author Organization [place] - [facility] Address [address] [facility] [address] [address] [place] [address] Assessment Encounter Date Assessment Date Assessment LastModified by Organization Details LastModified Time 08/07/2024 08/07/2024 ASSESSMENT: Patient is a good candidate for [...] should not hesitate to contact our office. ecram Not available 08/07/2024 15:19:54 Plan of Treatment Reminders Order Date Submit [...] Organization Details Recorded Time Thoracic segmental dysfunction 160163537 Active 2024 Stefano Tran DC [address] [facility], [place], [address], [facility] 5 09:26:40 Low back pain 291041154 Active 2024 Stefano Tran DC [address] [facility], [place], [address], [facility] 5 09:26:40 Lumbar segmental dysfunction 532423812 Active 2024 Stefano Tran DC [address] [facility], [place], [address], [facility] 5 09:26:40 Somatic dysfunction of sacral spine 365372012 Active 2024 Stefano Tran [place] [address] [facility], [place], [address], [facility] 09:26:40 Problem Notes None recorded. Procedures Surgical History Date Name Laterality Status Provider Name and Address Organization Details Recorded Time 5 16065: Spinal manipulation , 3 to 4 regions completed Odilon Kwan Pranay[place] [address] [facility], [place], [address], [facility] 08/11/2024 17:21:12 5 46614: Spinal manipulation , 3 to 4 regions completed Odilon Gurrola [place] [address] [facility], [place], [address], [facility] 08/07/2024 15:19:54 5 18312: Spinal manipulation , 3 to 4 regions completed Stefano Tran [place] [address] [facility], [place], [address], [facility] 05/22/2024 16:48:56 5 70724: Spinal manipulation , 3 to 4 regions completed [facility] Familia Tran [place] [address] [facility], [place], [address], [facility] 05/17/2024 09:26:53 Imaging Results None recorded. Procedure Notes None recorded. Medical Equipment None Reported. Medications Name Sig Start Date Stop Date Status Note LastModified by Organization Details LastModified Time celecoxib 200 mg capsule TAKE 1 CAPSULE BY MOUTH DAILY active Not Available Not Available Not Available oxycodone 5 mg tablet TAKE 1/2 TO 1 TABLET BY MOUTH EVERY 6 HOURS NEEDED FOR PAIN. MAXIMUM DAILY DOSE IS 6 TABLETS active Not Available Not Available No t Available cyclobenzapr ine 5 mg tablet TAKE 1 TABLET BY MOUTH AT BEDTIME NEEDED active Not Available Not Available No t Available Gavilyte-C 240 gram-22.72 gram-6.72 gram-5.84 gram oral solution DO 1ST PART OF PREP 6 PM NIGHT BEFORE APPT AND START 2ND PART 3 HOURS BEFORE REPORT TIME active Not Available Not Available Not Available Stimulant Laxative Plus 8.6 mg-50 mg tablet TAKE 1-4 TABLETS BY MOUTH TWICE DAILY NEEDED FOR CONSTIPATIO N. HOLD MEDICATION IF EXPERIENCIN G LOOSE STOOLS active Not Available Not Available No t Available Vitals None Recorded Social History None recorded. Functional Status None recorded. Mental Status None recorded. Family History Nothing Reported. Medical History No medical history recorded. Past Encounters Encounter ID Performer Location Encounter Start Date Encounter Closed Date Diagnosis/Indication Diagnosis SNOMED-CT Code Diagnosis ICD10 Code Diagnosis Note [id number] SAAD Harrington [facility] [address] [place] [address] [place] [address] 08/07/2024 15:15:54 08/07/2024 16:53:05 Lumbar segmental dysfunction 875683672 M99.03 Low back pain 308261491 M54.50 Somatic dy sfunction of sacral spine 035312559 M99.04 Thoracic s egmental dysfunction 067142736 M99.02 Health Concerns Section Related Observation LastModified by Organization Detai ls LastModified Time None Recorded Concern Status LastModified by Organization Details LastModified Time None Recorded Payers Encounter Date Sequence Insurance Name Policy Number Policy Valdes Covered Member ID Valdes Member ID Guarantor Name 08/07/2024 [facility] Tyrese Maddox [id number] Tyrese Maddox Notes Date Note Type Note Provider Name and Address Organization Details Recorded Time 08/07/2024 text/html HPI - Lumbar SpineReported bypatient.Location: left Quality:aching Severity:moderate Timing:morning Aggravating Factors:walking; lifting; carrying; twisting Alleviating Factors:rest Odilon Gurrola DC [address] [place] [address], [place], [address], [place] [facility] 08/07/2024 15:23:56
--- OUTSIDE RECORDS SUMMARY | 2024-08-18 18:58 | XMS_ITS | Data Portability ---
Author Organization [place] [facility] Address [address] [facility] [address] [place] [address] Assessment Encounter Date Assessment Date Assessment LastModified [...] contact our office. Not available 05/22/2024 16:48:56 08/07/2024 08/07/2024 ASSESSMENT: Patient is a good [...] our office. ecram Not available 08/07/2024 15:19:54 08/11/2024 08/11/2024 ASSESSMENT: Patient is a good candidate for [...] to contact our office. ecram Not available 08/11/2024 17:21:12 Plan of Treatment Reminders Order Date Submit [...] Organization Details Recorded Time Thoracic segmental dysfunction 023024106 Active 2024 Stefano Familia Tran DC [address] [facility] [address], [place], [address], [facility] 09:26:40 Low back pain 220038400 Active 2024 Stefano Barbosa SAAD Tran [address] [address], [place], [address], [facility] 09:26:40 Lumbar segmental dysfunction 409968805 Active 2024 Stefano Familia Tran [place] [address] [address], [place], [address], [facility] 09:26:40 Somatic dysfunction of sacral spine 602094214 Active 2024 Stefano Familia Tran [place] [address] [address], [place], [address], [facility] 09:26:40 Problem Notes None recorded. Procedures Surgical History Date Name Laterality Status Provider Name and Address Organization Details Recorded Time 5 74402: Spinal manipulation , 3 to 4 regions completed Odilon Gurrola DC [address] [address], [place], [address], [facility] 08/11/2024 17:21:12 5 26911: Spinal manipulation , 3 to 4 regions completed Odilon Gurrola DC [address] [facility] [address], [place], [address], [facility] 08/07/2024 15:19:54 5 94568: Spinal manipulation , 3 to 4 regions completed Stefano Tran DC [address] [address], [place], [address], [facility] 05/22/2024 16:48:56 83709: Spinal manipulation , 3 to 4 regions completed Stefano Tran SAAD [address] [address], [place], [address], [facility] 05/17/2024 09:26:53 Imaging Results None [...] SNOMED-CT Code Diagnosis ICD10 Code Diagnosis Note [id number] Stefano Barbosa SAAD Tran [facility] [address] [place] [address] [place] [address] 05/16/2024 12:05:11 05/17/2024 09:31:59 Lumbar segmental dysfunction 604569485 M99.03 Low back pain 562106296 M54.50 Somatic dy sfunction of sacral spine 124834680 M99.04 Thoracic s egmental dysfunction 970718892 M99.02 [id number] Stefano Familia Tran DC [facility] [address] [place] [address] 05/22/2024 11:56:47 05/22/2024 16:49:49 Lumbar segmental dysfunction 885704092 M99.03 Low back pain 378019172 M54.50 Somatic dy sfunction of sacral spine 317520590 M99.04 Thoracic s egmental dysfunction 571457162 M99.02 [id number] Odilon Gurrola DC [facility] & [address] [facility] [place] [address] 08/07/2024 15:15:54 08/07/2024 16:53:05 Lumbar segmental dysfunction 554273295 M99.03 Low back pain 463134351 M54.50 Somatic dy sfunction of sacral spine 161144643 M99.04 Thoracic s egmental dysfunction 920378031 M99.02 [id number] Odilon Gurrola DC [facility] & [address] [facility] [place] [address] 08/11/2024 17:18:34 08/11/2024 17:29:21 Lumbar segmental dysfunction 932800417 M99.03 Low back pain 476831544 M54.50 Somatic dy sfunction of sacral spine 817866753 M99.04 Thoracic s egmental dysfunction 138354428 M99.02 Health Concerns Section Related Observation LastModified by Organization Detai ls LastModified Time None Recorded Concern Status LastModified by Organization Details LastModified Time None Recorded Advance Directives Directive None Recorded Payers Insurance Date Sequence Insurance Name Policy Number Policy Valdes Covered Member ID Valdes Member ID Guarantor Name 08/07/2024 1 [employer] - DOS ON OR AFTER 19 (MEDICARE REPLACEMENT/ ADVANTAGE - HMO) [id number] Zaid Maddox [id number] Tyrese Maddox 05/18/2024 [facility] Tyrese Maddox [id number] Tyrese Maddox Notes Date Note Type Note Provider Name and Address Organization Details Recorded Time 05/16/2024 text/html HPI - Lumbar SpineReported bypatient.Location: left Quality:aching Severity:moderate Timing:morning Aggravating Factors:walking; lifting; carrying; twisting Alleviating Factors:rest Stefano Tran DC [address] [place] [address], [place], [address], [facility] 05/17/2024 09:27:04 05/22/2024 text/html HPI - Lumbar SpineReported bypatient.Location: left Quality:aching Severity:moderate Timing:morning Aggravating Factors:walking; lifting; carrying; twisting Alleviating Factors:rest Stefano Tran DC [address], [place], [address], [facility] 05/22/2024 16:49:40 08/07/2024 text/html HPI - Lumbar SpineReported bypatient.Location: left Quality:aching Severity:moderate Timing:morning Aggravating Factors:walking; lifting; carrying; twisting Alleviating Factors:rest Odilon Gurrola DC [address] [address], [place], [address], [facility] 08/07/2024 15:23:56 08/11/2024 text/html HPI - Lumbar SpineReported bypatient.Location: left Quality:aching Severity:moderate Timing:morning Aggravating Factors:walking; lifting; carrying; twisting Alleviating Factors:rest Odilon Gurrola DC [address] [address], [place], [address], [facility] 08/11/2024 17:21:48
--- OUTSIDE RECORDS SUMMARY | 2024-08-18 18:58 | XMS_ITS | Clinical Summary ---
Author Organization [facility] Address [address] [place] [address] Care Team Providers Care Waste Management Specialist Name Role Phone Unavailable Primary Care Provider Unavailabl e Source Comments Patient records contain information from all sites at [facility]. For routine questions regarding patient records, call [phone] during business hours, M-F 8:00 AM - 5:00 PM Central Time. Record requests for emergency care only can be directed to [phone] at any time.[facility] Allergies No known active allergies Medications verapamil [...] (07/07/2017): Added automatically from request for surgery [id number] Immunizations Immunization Administration Dates Next Due SARS-COV-2 [...] by your partner or ex-partner? No 09/05/2022 Hunger Vital Sign Answer Date Recorded [...] things needed for daily living? No 09/05/2022 Housing Stability Answer Date Recorded What is your living situation today? I have a [facility] place to live 09/05/2022 Education Answer Date Recorded What is the highest level of school you have completed or the highest degree you have received? 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 Gender Identity Male 07/02/2017 7:58 PM CDT Sexual Orientation Straight 07/02/2017 7: 58 PM CDT Last Filed Vital Signs Vital Sign Reading Time Taken Comments Blood Pressure 102/72 01/03/2024 3:15 PM BUN MACHINE OPERATOR Pulse 98 01/03/2024 3:15 PM BUN MACHINE OPERATOR Temperature 36.6 C (97.9 F) 01/03/2024 3:15 PM BUN MACHINE OPERATOR Respiratory Rate 22 01/03/2024 3:15 PM BUN MACHINE OPERATOR Oxygen Saturation 94% 01/03/2024 3:15 PM BUN MACHINE OPERATOR Inhaled Oxygen Concentration - - Weight 88.1 kg (194 lb 3.6 oz) 01/03/2024 1:11 P M BUN MACHINE OPERATOR Height 177 cm (5' 9.69) 11/02/2023 1:43 PM CDT Body Mass Index 28.12 11/02/2023 1:43 PM CDT Plan of Treatment Health Maintenance Due Date Last Done Comments Hepatitis C Screening 1945 Depression Screening (Annual PHQ-2) 02/16/2024 Fall Risk Screen (Annual) 02/16/2024 COVID-19 Vaccine ( season) 2024 11/13/2023, 12/03/2022, 12/08/2021, Additional history exists Influenza Vaccine (#1) 2024 , 11/19/2022, 11/11/2021, Additional history exists DTaP,Tdap,and Td Vaccines (3 - Td or Tdap) 09/15/2026 09/15/2016, 10/08/2006 Abdominal Aortic Aneurysm (AAA) Screen Discontinued 03/18/2015 Zoster Vaccines Completed 07/18/2020, 02/16, 09/05/2010 RSV vaccine - (32-36 weeks) or 60+ years Completed 11/19/2022 Pneumococcal vaccine (50+ years) Completed 12/16/2022, 06/01/2014, 01/01/2012, Additional history exists Colonoscopy Discontinued 01/03/2024, 11/15, 12/16/2016 Colorectal Cancer Screening Discontinued CT Colonography Discontinued Cologuard Discontinued FIT Discontinued IPV Vaccines Aged Out No longer eligi ble based on patient's age to complete this topic Medical Devices Implanted Type Area Sorter Pricer Device Identifier Shelf Expiration Date Model / Serial / Lot Clp Rsp [facility] [place] [facility] End[facility] 235 - [id number] Implanted:Qty: 1 on 01/03/2024 by Neil Clarke M.D. at [facility] Hardware e.g. pins/screws /rods [employer] [id number] 04/07/2026 [id number] / / [id number] Sheeting [place]. Non-Rein. .020 - [id number] [id number] Implanted:Qty: 1 on 12/27/1997 Mesh or Patch [place] Description:Device Manufactu rer - [employer]. Device Status Text - [id number]. Procedures Procedure Name Priority Date/Time Associated Diagnosis Comments COLONOSCOPY Routine 01/03/2024 1:40 PM BUN MACHINE OPERATOR Polyp Colon Adenomatous Personal History from Last 3 Months or Most Recently Relevant to Health Maintenance Results * Colonoscopy (01/03/2024 1:40 PM BUN MACHINE OPERATOR) 01/03/2024 1:40 PM BUN MACHINE OPERATOR Impressions [facility] - 01/03/2024 3:21 PM BUN MACHINE OPERATOR Post-op Diagnoses: - Two 4 to 5 [...] retrieved. Clip (MR conditional) was placed. Clip dixonac operator: [employer]. Narrative [facility] - 01/03/2024 3:21 PM BUN MACHINE OPERATOR Gonda 2 GI Patient Name: Zaid Maddox [...] clip was successfully placed (MR conditional). Clip dixonac operator: [employer]. There was no bleeding at the end [...] bowel preparation was evaluated using the BBPS (Lenora Bowel Preparation Scale) with scores of: Right [...] 0 Note Initiated On: 01/03/2024 1:40 PM Babs Lozano M.D. GI PROCEDURE ORDERABLES Fin al Result [facility] from Last 3 Months or Most Recently Relevant to Health Maintenance Insurance [facility]
--- OUTSIDE RECORDS SUMMARY | 2024-08-18 18:58 | XMS_ITS | Data Portability ---
Author Organization [facility], [facility] Address [address] [place] [address] Care Team Providers [employer] Mill[employer] Name Role Phone JOHN MIRANDA Primary Care Provider [phone] Assessment No assessment recorded. Plan of Treatment Reminders Order Date Submit Date Provider Last Modified By Organization Details Last Modified Time Details Appointments None recorded. Lab culture, urine 2021 [facility], [address], [address], [place], [address], 09:15:28 urinalysis , dipstick 2021 [facility], [address], [address], [place], [address], 14:48:13 Referral None recorded. Procedures None recorded. Surgeries None recorded. Imaging None recorded. Medication Orders trospium 20 mg tablet 2021 [id number], [address], [place], [place], [phone], 15:16:57 Patient TargetsNo targets recorded. Patient Instructions Encounter Date Encounter Id Patient Instructions Last Modified By Organization Details Last Modified Time 11/17/2021 [id number] We have obtained a urinalysis and urine [...] morning. Neurogenic bladder due to disease of RADAR SCIENTIST. 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 [email or web address] Not available 11/17/2021 15:13:12 Reason for Referral None Reported. Results Created Date Observation Date Name Description Value Unit Range Abnormal Flag Note LastModifiedBy Organization Detail LastModifiedTime 11/18/1911/17/2021 UA DIP CS ADVAN TUS color -advantus YELLOW yellow Not Available [facility] [address], [place], [address], 11/17/2021 14:48:13 11/18/1911/17/2021 UA DIP CS ADVAN TUS appearance -advantus CLEAR clear Not Available [facility] [address], [place], [address], 11/17/2021 14:48:13 11/18/19 22 11/17/2021 UA DIP CS ADVAN TUS glucose -advantus NEGATI VE mg/dL negati ve Not Available [facility] [address], [place], [address], 11/17/2021 14:48:13 11/18/1911/17/2021 UA DIP CS ADVAN TUS bilirubin -advantus NEGATI VE negati ve Not Available [facility] [address], [place], [address], 11/17/2021 14:48:13 11/18/19 22 11/17/2021 UA DIP CS ADVAN TUS ketones -advantus NEGATI VE mg/dL negati ve Not Available [facility] [address] [place] [address] [address], [place], [address], 11/17/2021 14:48:13 11/18/19 22 11/17/2021 UA DIP CS ADVAN TUS sp. gravity -advantus 1.025 1.010- 1.025 Not Available [facility] [address] [place] [address] [address], [place], [address], 11/17/2021 14:48:13 11/18/19 22 11/17/2021 UA DIP CS ADVAN TUS pH -advantus 5.5 5.0-8. 0 Not Available [facility] [address] [place] [address] [address], [place], [address], 11/17/2021 14:48:13 11/18/19 22 11/17/2021 UA DIP CS ADVAN TUS protein -advantus NEGATI VE mg/dL negati ve Not Available [facility] [address] [place] [address] [address], [place], [address], 11/17/2021 14:48:13 11/18/19 22 11/17/2021 UA DIP CS ADVAN TUS urobilinogen -advantus 0.2 normal Not Available [facility] [place] [facility] [address] [place] [address] [address], [place], [address], 11/17/2021 14:48:13 11/18/19 22 11/17/2021 UA DIP CS ADVAN TUS nitrites -advantus NEGATI VE negati ve Not Available [facility] [address] [place] [address] [address], [place], [address], 11/17/2021 14:48:13 11/18/19 22 11/17/2021 UA DIP CS ADVAN TUS blood -advantus NEGATI VE negati ve Not Available [facility] [address] [place] [address] [address], [place], [address], 11/17/2021 14:48:13 11/18/19 22 11/17/2021 UA DIP CS ADVAN TUS leukocytes -advantus NEGATI VE negati ve Not Available [facility] [address], [place], [address], 11/17/2021 14:48:13 11/18/19 22 11/17/2021 UA DIP CS ADVAN TUS performed by ANALILIA Campbell Not Available [facility] [address], [place], [address], 11/17/2021 14:48:13 11/18/19 22 11/17/2021 UA DIP [...] for provi adam revie w. Not Available [facility] [address], [place], [address], 11/17/2021 14:48:13 11/18/19 22 11/17/2021 URINE CULTU [...] for provi adam revie w. Not Available [facility] [address], [place], [address], 11/19/2021 09:15:28 11/12/19 22 03/28/2021 imagi ng/di agnos tic resul t No observ ation record ed. [email or web address] Not Available 2021 17:19:55 Result Notes None recorded. Procedures Surgical History Date Name Laterality Status Provider Name and Address Organization Details Recorded Time CystoscopyMale completed Patrice Kumar [facility] 11/17/2021 17:38:48 Bladder Scan completed Patrice Kumar [facility] 11/17/2021 14:47:26 018 Colonoscopy completed Siri Canada [facility] 11/17/2021 14:31:07 esophagogastroscopy completed Mariella Canada [facility] 11/17/2021 14:30:49 Hernia Repair completed Siri Canada [facility] 11/17/2021 14:30:55 Imaging Results None [...] Updated DateTime 11/17/2021 177.8 cm 25.8 kg/m2 11806.63 g Siri Canada [facility] 11/17/2021 14:28:53 Social History Question Answer Notes LastModified by Dipity Details LastModified Time Tobacco Smoking Status Never Smoker Siri kaur [facility] 11/17/2021 14:32:05 What Is Your Level Of Caffeine Consumption? None Information not available 11/17/2021 What Was The Date Of Your Most Recent Tobacco Screening? 11/17/2021 Information not available 11/17/2021 What Is Your Relationship Status? 3 Children Information not available 11/17/2021 Are You Sexually Active? No [email or web address] Information not available 11/17/2021 Has Tobacco Cessation Counseling Been Provided? No [email or web address] Information not available 11/17/2021 Sex: Unknown Functional Status Question Answer Note LastModified by Organizat ion Details LastModified Time Do you use any illicit or recreational drugs? No Information not available 11/17/2021 Do you or have you ever used any other forms of tobacco or nicotine? No [email or web address] Information not available 11/17/2021 What is your level of alcohol consumption? 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 Family History Relationship Description Onset Age of this Age Resolved Age Notes LastModified by Organization Details LastModified Time Father Family history of malignant neoplasm of prostate [email or web address] Not available 11/17 14:31:35 Unspecified Relation Family history of cancer of colon [email or web address] Not available 11/17 14:31:41 Unspecified Relation Family history of cardiac disorder [email or web address] Not available 11/17 14:31:54 Medical History Condition Response Heart Disease Y Past Encounters Encounter ID Performer Location Encounter Start Date Encounter Closed Date Diagnosis/Indication Diagnosis SNOMED-CT Code Diagnosis ICD10 Code Diagnosis Note [id number] Patrice Kumar MD [facility] [address] [place] [address] 11/17/2021 14:17:31 11/17/2021 15:25:31 Increased frequency of urination 178670429 R35.0 Most likely due to overactive bladder. Overactive urinary bladder 126558012 N32.81 Causing symptoms of urinary frequency and nocturia Lower urin airam tract symptoms due to benign prostatic hypertrophy 3180380593 9101 N40.1 Status post greenlight laser vaporizati on with some improvemen t in symptoms. Nocturia d ue to benign prostatic hypertrophy 5632187395 101 R35.1 Likely due to overactive bladder [...] AFTER 19 (MEDICARE REPLACEMENT/ ADVANTAGE - HMO) [id number] Zaid Maddox [id number] Zaid Maddox Notes Date Note Type Note [...] at 2.01. He had laser TUR at [place] 2014. He has some urinary hesitancy with difficulty evacuating bladder especially at night. Has sandra push hard to get all the urine out. No gross hematuria or dysuria. Patrice Kumar [place], [place] - [facility] 11/17/2021 17:39:53
--- OUTSIDE RECORDS SUMMARY | 2024-08-18 18:58 | XMS_ITS | Continuity of Care Document ---
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 Active 2024 Stefano Tran [place] [address], [place], [address], [facility] 5 09:26:40 Low back pain 958961366 Active 2024 Stefano Tran [place] [address], [place], [address], [facility] 5 09:26:40 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 Procedures Surgical History Date Name Laterality Status Provider Name and Address Organization Details Recorded Time 5 [address]11: Spinal manipulation , 3 to 4 regions completed Odilon Kwan [place] [address], [place], [address], [facility] 08/11/2024 17:21:12 5 [address]: Spinal manipulation , 3 to 4 regions completed Odilon Gurrola [place] [address], [place], [address], [facility] 08/07/2024 15:19:54 5 [address]: Spinal manipulation , 3 to 4 regions completed Stefano Tran [place] [address], [place], [address], [facility] 05/22/2024 16:48:56 5 [address]36: Spinal manipulation , 3 to 4 regions completed [facility] Familia Tran [place] [address], [place], [address], [facility] 05/17/2024 09:26:53 Imaging Results None recorded. Procedure [...] SNOMED-CT Code Diagnosis ICD10 Code Diagnosis Note [id number] Odilon Gurrola DC [facility] [address] [place] [address] 08/07/2024 15:15:54 08/07/2024 16:53:05 Lumbar segmental dysfunction 868947710 M99.03 Low back pain 970818524 M54.50 Somatic dy sfunction of sacral spine 904302085 M99.04 Thoracic s egmental dysfunction 277054611 M99.02 [id number] Odilon Gurrola DC [facility] [address] [place] [address] 08/11/2024 17:18:34 08/11/2024 17:29:21 Lumbar segmental dysfunction 384954478 M99.03 Low back pain 878336286 M54.50 Somatic dy sfunction of sacral spine 244733428 M99.04 Thoracic s egmental dysfunction 101571154 M99.02 Health Concerns Section Related Observation LastModified by Organization Detai ls LastModified Time None Recorded Concern Status LastModified by Organization Details LastModified Time None Recorded Payers Encounter Date Sequence Insurance Name Policy Number Policy Valdes Covered Member ID Valdes Member ID Guarantor Name 08/11/2024 [facility] Tyrese Maddox [id number] Tyrese Maddox Notes Date Note Type Note Provider Name and Address Organization Details Recorded Time 08/11/2024 text/html HPI - Lumbar SpineReported bypatient.Location: left Quality:aching Severity:moderate Timing:morning Aggravating Factors:walking; lifting; carrying; twisting Alleviating Factors:rest Odilon Gurrola [place] [address], [place], [address], [facility] 08/11/2024 17:21:48
[2024-08-18 19:11] VITALS: BP 106/75; PULSE 99; RESP 16; TEMP 36.2; O2SAT 98; BMI 29.0
--- NOTE | 2024-08-18 21:10 | ED.GENADULT ---
HPI - General Adult General Date Seen: 08/18/24 Chief complaint: Extremity Pain/Injury, Upper Stated complaint: swelling from contrast in IV Time Seen by Provider: 08/18/24 21:09 History of Present Illness HPI narrative: 79 yo M who was seen in the ER in [place] today on 08/18/2024. He was having workup for difficulty passing urine and stool for the past 3-4 days. I guess he had a total knee replacement in June, about 2 months ago. Workup in the ER showed normal kidney function with a BUN of 15 and a creatinine of 0.87. Normal electrolytes. He had a normal white count of 7.8, normal hemoglobin 13.6, normal platelet count of 258. Urinalysis was normal. He had a CT scan that showed enlarged prostate the but no evidence for bowel obstruction. No acute findings. He did have contrast extravasation from the IV with contrast into his right upper forearm. This was noted by his providers at [place] and was marked. There are pictures in their note. They recommended cool compress, Bryson wrap for compression. They told him that if he develops redness or pain he should be seen in the ER. He has been keeping the Bryson wrap in place and has noted that the swelling in his forearm is gone down substantially but he is not developing swelling in his distal upper arm just above the elbow, above the top of his Bryson wrap. Based on the instructions from his doctors, he came to the ER. He is not having any pain. No fever chills. No numbness or tingling in his hand or arm. Normal range of motion is elbow, wrist, shoulder. Related Data Home Medications ?Medication ?Instructions ?Recorded ?Confirmed apixaban 5 mg tablet (Eliquis) 5 mg PO BID 12/11/22 08/18/24 verapamil 180 mg tablet,extended 180 mg PO DAILY 12/11/22 08/18/24 release cholecalciferol (vitamin D3) 25 1,000 unit PO DAILY 06/15/24 08/18/24 mcg (1,000 unit) capsule ciprofloxacin HCl 500 mg tablet 500 mg PO BID 08/18/24 08/18/24 tamsulosin 0.4 mg capsule 0.4 mg PO DAILY 08/18/24 08/18/24 Previous Rx's ?Medication ?Instructions ?Recorded acetaminophen 650 mg 1,300 mg (2 x 650 mg) PO Q8H #90 05/08/25 tablet,extended release (Tylenol tabs Arthritis Pain) lidocaine 4 % topical patch 1 patch topical DAILY PRN pain #10 06/22/24 ea polyethylene glycol 3350 17 17 g PO DAILY #238 grams 06/22/24 gram/dose oral powder (Miralax) Allergies Allergy/AdvReac Type Severity Reaction Status Date / Time No Known Drug Allergies Allergy Verified 08/18/24 19:09 PFSH PFSH Medical History Osteoarthritis of right knee ?M17.11 - Unilateral primary osteoarthritis, right knee (ICD-10) Left hydrocele ?N43.3 - Hydrocele, unspecified (ICD-10) Risk for falls ?Z91.81 - History of falling (ICD-10) BPH without urinary obstruction ?N40.0 - Benign prostatic hyperplasia without lower urinary tract symptoms (ICD-10) Overactive bladder ?N32.81 - Overactive bladder (ICD-10) Insomnia ?G47.00 - Insomnia, unspecified (ICD-10) Arthritis of carpometacarpal (CMC) joint of left thumb ?M18.12 - Unilateral primary osteoarthritis of first carpometacarpal joint, left hand (ICD-10) Stricture and stenosis of esophagus ?K22.2 - Esophageal obstruction (ICD-10) Mixed conductive and sensorineural hearing loss of right ear with restricted hearing of left ear ?H90.A31 - Mixed conductive and sensorineural hearing loss, unilateral, right ear with restricted hearing on the contralateral side (ICD-10) Cholesteatoma ?H71.90 - Unspecified cholesteatoma, unspecified ear (ICD-10) Onychomycosis ?B35.1 - Tinea unguium (ICD-10) Afib ?I48.91 - Unspecified atrial fibrillation (ICD-10) Surgical History History of arthroplasty of right knee (06/19/24) ?Z96.651 - Presence of right artificial knee joint (ICD-10) History of bilateral cataract extraction (07/2020) ?Z98.41 - Cataract extraction status, right eye (ICD-10) ?Z98.42 - Cataract extraction status, left eye (ICD-10) History of esophagogastroduodenoscopy (EGD) (10/2019) ?Z98.890 - Other specified postprocedural states (ICD-10) H/O umbilical hernia repair (08/11/01) ?Z98.890 - Other specified postprocedural states (ICD-10) ?Z87.19 - Personal history of other diseases of the digestive system (ICD-10) Cholesteatoma of right ear (1997) ?H71.91 - Unspecified cholesteatoma, right ear (ICD-10) History of tonsillectomy (1951) ?Z90.89 - Acquired absence of other organs (ICD-10) History of transurethral resection of prostate (11/2013) ?Z98.890 - Other specified postprocedural states (ICD-10) ?Z90.79 - Acquired absence of other genital organ(s) (ICD-10) Social History What is your current living situation?: I presently have a place to live In the past 12 months, utilities in danger of being shut off: no In past 12 months, lack of transportation kept you from medical appts, meetings, work, or getting things needed for daily living: no In the past 12 mos, have been you worried that your food would run out before you had money to buy more?: never true In the past 12 mos, the food you bought just didn't last and you didn't have money to buy more?: never true Smoking Status: Never smoker Do you use any of these nicotine containing products: None Second hand tobacco smoke exposure: No How often do you have a drink containing alcohol: never AUDIT-C Alcohol total score: 0 Non-prescribed substance use: denies use Caffeine: Yes How often does anyone, including family, friends and others, physically hurt you: never How often does anyone, including family, friends and others, insult or talk down to you: never How often does anyone, including family, friends and others, threaten you with harm: never How often does anyone, including family, friends and others, scream or curse at you: never service: No Exam Narrative: Exam Narrative: Constitutional: Appears well-developed and well-nourished. Alert. Conversant. Non toxic. HENT: Head: Atraumatic. Nose: Nose normal. Mouth/Throat: Oral mucosa is clear and moist. no trismus. Eyes: Conjunctivae normal. EOM normal. Pupils equal, round, and reactive to light. No scleral icterus. Neck: Normal range of motion. Neck supple. No tracheal deviation present. Cardiovascular: Normal rate, regular rhythm. No gallop. No friction rub. No murmur heard. Symmetric radial artery pulses Pulmonary/Chest: Effort normal. No stridor. No respiratory distress. No wheezes. No rales. No rhonchi . Musculoskeletal: RUE: Patient has an Bryson wrap on his forearm from roughly the wrist all the way up to the elbow. I removed the Bryson wrap for exam. He does have the skin pen marking on his forearm which marked area of swelling that had been preference previously and is now almost completely resolved. He now does have soft tissue swelling affecting the distal 1/4 of his anterior humerus just above the elbow. Subtle erythema along the anterior antecubital fossa at the upper edge wear the Bryson wrap was. Normal range of motion in his shoulder, elbow, wrist, forearm. No tenderness. No deformity LUE: Normal range of motion. No tenderness. No deformity RLE: Normal range of motion. No edema. No tenderness. No deformity LLE: Normal range of motion. No edema. No tenderness. No deformity Lymph: No ascending lymphangitis Neurological: Alert and oriented to person, place, and time. Normal strength. CN II-VII intact. No sensory deficit. GCS eye subscore is 4. GCS verbal subscore is 5. GCS motor subscore is 6. Normal coordination Skin: Skin is warm and dry. No rash noted. No pallor. Normal capillary refill. Psychiatric: Normal mood. Normal affect. Const: Vital Signs, click to edit/add: Vital Signs - 24 hr 08/18/24 19:11 Temperature 97.2 F L Pulse Rate [Pulse Oximeter] 99 Respiratory Rate 16 Blood Pressure [Ri ght Upper Arm] 106/75 Pulse Oximetry 98 Oxygen Delivery Me thod Room Air Course Vital Signs Vital signs: Initial Vital Signs Temperature 97.2 F L 08/18/24 19:11 Temperature Source Temporal Artery Scan 08/18/24 19:11 Pulse Rate 99 08/18/24 19:11 Pulse Rhythm Regular 08/18/24 19:11 Respiratory Rate 16 08/18/24 19:11 Blood Pressure 106/75 08/18/24 19:11 Blood Pressure Mean 85 08/18/24 19:11 Blood Pressure Position Sitting 08/18/24 19:11 Pulse Oximetry 98 08/18/24 19:11 Oxygen Delivery Method Room Air 08/18/24 19:11 Vital Signs Temperature 97.2 F L 08/18/24 19:11 Pulse Rate 99 08/18/24 19:11 Respiratory Rate 16 08/18/24 19:11 Blood Pressure 106/75 08/18/24 19:11 Pulse Oximetry 98 08/18/24 19:11 Oxygen Delivery Method Room Air 08/18/24 19:11 Temperature 97.2 F L 08/18/24 19:11 Pulse Rate 99 08/18/24 19:11 Respiratory Rate 16 08/18/24 19:11 Blood Pressure 106/75 08/18/24 19:11 Pulse Oximetry 98 08/18/24 19:11 Oxygen Delivery Method Room Air 08/18/24 19:11 Medical Decision Making MDM Narrative Medical decision making narrative: Very pleasant 79-year-old gentleman presenting to the ER today with concern for swelling in his right arm. He had a CT scan done at the [facility] earlier today for abdominal pain and unfortunately had contrast 6 have position into his volar forearm during that CT. He had an Bryson wrapped tightly placed on the forearm and was told to come if he develops any worsening swelling. This evening the swelling has changed location and has moved from the forearm up into the distal upper arm (likely due to compression from the Bryson wrap). He does not have any other new symptoms. No redness. No bruising. No numbness. No pain. He has normal range of motion.. At this point I think reassurance can be offered. I think the swelling is likely due to compression of the original extravasation site with resultant tracking of the contrast into the soft tissue into his upper arm. At this point clinical presentation is not really consistent with DVT, abscess, necrotizing infection, cellulitis. Would recommend rest, elevation, cold packs as needed. Precautions for return to the ER reviewed again. Patient is very pleased Discharge Plan Discharge Clinical Impression: Extravasation of intravenous contrast medium Patient Disposition: Home, Self-Care Instructions: Extravasation (DC) Additional Instructions: As we discussed, generally extravasation of moderate CT contrast is not dangerous and does not cause any damage to your skin. It will probably take several days or week or 2. Your body will gradually reabsorbed the fluid from the contrast and the swelling will go down. For now you can gently wrap your arm with an Bryson wrap as needed. You can expect the swelling to persist for several days. If you develop symptoms such as pain, new redness, severe bruising, or any concerns, please return to the ER or see your nearest ER right away. Prescriptions: No Action verapamil 180 mg tablet extended release 180 mg PO DAILY Eliquis 5 mg tablet 5 mg PO BID cholecalciferol (vitamin D3) 25 mcg (1,000 unit) capsule 1,000 unit PO DAILY acetaminophen [Tylenol Arthritis Pain] 650 mg tablet extended release 1,300 mg PO Q8H Qty: 90 0RF polyethylene glycol 3350 [Miralax] 17 gram/dose powder 17 g PO DAILY Qty: 238 0RF lidocaine 4 % adhesive patch,medicated 1 patch topical DAILY PRN (Reason: pain) Qty: 10 0RF Rx Instructions: apply to the inside of the right knee where it is the most painful tamsulosin 0.4 mg capsule 0.4 mg PO DAILY ciprofloxacin HCl 500 mg tablet 500 mg PO BID Follow Up/Referrals: Zaid Gill MD [Primary Care Provider, Family Practice] Stand Alone Forms: [employer] Info Instructions
== END 2024-08-18 21:35 | disposition home or self-care (01) ==
PROVIDERS: Emergency Provider Emergency Medicine; PCP Family Medicine
DX: M79.631 Pain in right forearm (principal); T80.818A Extravasation of other vesicant agent, initial encounter
CPT/HCPCS: 99282

== ENCOUNTER 2024-09-05 11:00 | Outpatient (RCR) | payer MEDICARE, SELFPAY ==
--- NOTE | 2024-07-16 21:18 | PT.OPEX ---
PT [facility] Outpatient Eval PT [facility] Outpatient Eval Start: 06/22/24 12:49 Freq: Status: Active Protocol: Document 07/14/24 16:03 SUE (Rec: 07/14/24 17:47 SUE [id number]) E-signed By Herb Varela PT Physical Therapy Outpatient Evaluation Insurance Information Medical Diagnosis Right TKA (06/19/24) Treating Diagnosis Right quad weakness Decreased right knee ROM Impaired gait Referring MD [facility] Subjective Preferred Name Tyrese Subjective 79 year old male who comes to therapy today S/P right knee TKA on 06/19/24. He spent 2 nights in the hospital after surgery with A-fib and pain complications along with a fall into bed side chair. He then spent a week at [facility] for rehab with home health therapy upon return home. He has had a lot of difficulty with pain post-operatively with an ED visit to rule out DVT. He reports feeling better overall currently after starting a muscle relaxant. He is still having difficulty sleeping and has still been utilizing his recliner for sleeping. Prior to having his TKA, he was indep with ambulation without assistive device. Pain Comments 2 currently Date of Last 07/13/24 Physician Visit Date of Surgery (If 06/19/24 applicable) Current Work Status Retired Precautions Treatment A-fib, pain levels Precautions/ Contraindications Therapy Limitations/ Not Limited Systems Review Objective Other/Pertinent Gait: Ambulation without walker with mild limp lacking Objective full extension at heel strike Right knee ROM: 5-90 degrees Right quad settin+/5 Right hip WFL Swelling: moderate swelling right LE palpation: mild warmth noted over right knee; mild hypertonus/tightness of right quad, calf, and ITB Assessment Assessment/ 79 year old male who comes to therapy today S/P right Impression knee TKA on 06/19/24. He spent 2 nights in the hospital with A-fib and pain complications along with a fall into bed side chair. He then spent a week at [facility] for rehab with home health therapy upon return home. He has had a lot of difficulty with pain with an ED visit to rule out DVT. He reports feeling better overall currently after starting a muscle relaxant. He is still having difficulty sleeping and has still been utilizing his recliner for sleeping. Prior to having his TKA, he was indep with ambulation without assistive device. Objective findings include: 5-90 degrees of right knee ROM; 3+/5 quad setting ability on right; ambulation without assistive device with mild limp lacking full extension at heel strike; moderate right LE swelling; mild warm of right knee; and mild hypertonus/tighness of right quad, ITB and calf muscles. He would benefit from skilled therapy working on progressive ROM, strength, swelling reduction, and ambulation rehab. Primary Functional walking, stairs, squatting, sleeping Limitations Plan of Care Rehabilitation Excellent Potential Physical Therapy 1. Pt. will be indep. with HEP for self maintenance in Goals 8 weeks. 2. Pt. will be able to walk without a limp in 8 weeks. 3. Pt. will demonstrate improved quad and core strength to functional level in 8 weeks. 4. Pt. will demonstrate functional knee AROM with full extension and 120 degrees of flexion to allow regular ADL's in 8 weeks. Coordination/ Referral Source Communication With Treatment Plan/ Gait Training,Joint Mobilization,Manual Therapy,Self- Direct Interventions Care/Home Management,Therapeutic Exercises Frequency/Duration 2 times a week for 6-8 weeks. Patient Will Be Independent w/HEP,Independently Progressing Discharged From Therapy Evaluation Billing Complexity Low Certification Information Initial 07/14/24 Certification Date Ending Certification 10/12/24 Date Provider Signature Yes Required Provider Signature POC & Medical Necessity Shows Agreement With Physician NPI Number Write NPI# Here Physician Comment/ : Change Physician Signature Please Sign/Date Here & Date Requested
== END 2024-09-05 13:48 | disposition home or self-care (01) ==
PROVIDERS: PCP Family Medicine; Visit Provider Orthopaedic Surgery Sports Medicine
DX: Z47.1 Aftercare following joint replacement surgery (principal); Z96.651 Presence of right artificial knee joint; Z51.89 Encounter for other specified aftercare
CPT/HCPCS: 97110; 97116; 97140; 97161; 97530; A9270; J0690; J2250; J2371; J2405; J2704; J3010